=== PATIENT | male | born 1935 | race Caucasian/White ===

== ENCOUNTER 2018-11-19 12:30 | Outpatient (CLI) | payer MEDICARE ==
--- NOTE | 2018-11-19 15:23 | PET ---
PET W CT Skull to Mid Thigh History: Malignant poorly differentiated neuroendocrine tumor. Comparison: None. Findings: PET CT from skull base to mid thigh was performed after the intravenous administration of 1 0.6 injury F-18 FDG. Diffuse abnormal uptake of radiotracer throughout the prostate with SUV max of 9.1. Abnormal right in ternal iliac adenopathy measuring short axis of 2.3 cm with SUV max 9.4. Right obturator lymph nodes have SUV max of 10.4 measuring up to 2.4 cm short axis. Right external iliac and internal iliac lymph nodes have SUV max of 8.6 and measure up to 2.7 cm in short axis. Left common iliac lymph nodes measure up to 2.7 cm in short axis with SUV max of 8. Retroperitoneal periaortic adenopathy brodie sures up to 2.5 cm in short axis with SUV max of 6. Aortocaval lymph nodes measure up to 3 cm in short axis with SUV max of 7.7. Left external iliac lymph nodes have a short axis of 2.1 cm with SUV max 13.43 Very heterogeneous hepatic uptake of radiotracer without a dominant mass may be sequelae of chronic c ongestive changes from diastolic dysfunction. Old right posterior rib fractures, right scapular fracture, right clavicular fracture, and right posterior rib fractures. Heart size markedly enlarged. No pneumothorax. No effusion. No focal airspace consolidation. No hydronephrosis. Batista catheter is in place with the prosthetic urethra displaced to the right. No suspicious osteoblastic lesions. Impression: Diffuse abnormal radiotracer uptake within the prostate with extensive pelvic and abdomin al retroperitoneal adenopathy.
== END 2018-11-19 12:31 | disposition home or self-care (01) ==
LOC: PET 12:30
PROVIDERS: ATTEND Internal Medicine Hematology & Oncology
DX: C7A.1 Malignant poorly differentiated neuroendocrine tumors (principal); R59.0 Localized enlarged lymph nodes
CPT/HCPCS: 78815; A9552

== ENCOUNTER 2018-12-31 17:42 | Inpatient (IN) | payer MEDICARE ==
[2018-12-31 18:23] LABS: Bacteria/HPF 4+ HPF (None Seen); Bilirubin Negative (Negative); Blood, Urine Trace (Negative); Clarity Clear (Clear); Glucose, Urine (Dipstick) Normal (Negative); Leukocyte 250 Leu/uL (Negative); Nitrite Negative (Negative); Protein, Urine (Dipstick) 20 mg/dL (Neg-Trace); Squamous Epithelial 0-3 HPF (0-3); Urobilinogen Normal mg/dL (Less than 2)
[2018-12-31 18:29] LABS: #Basophils 0.1 thou/uL (0.0-0.2); #Lymphocytes 4.7 thou/uL (1.20-3.40); #Monocytes 0.2 thou/uL (0.11-0.59); #Neutrophils 10.2 thou/uL (1.40-6.50); %Basophils 0.4 % (0.0-1.0); %Eosinophils 0.1 % (0.0-10.0); %Lymphocytes 30.8 % (21.0-51.0); %Monocytes 1.3 % (0.0-10.0); %Neutrophils 67.5 % (42.0-75.0); Hemoglobin 11.4 g/dL (14.0-18.0); Mean Corpuscular HGB CONC 34.3 g/dL (32.0-36.0); Mean Corpuscular Hemoglobin 30.2 pg (27.0-31.0); Mean Corpuscular Volume 88.1 fL (78.0-98.0); Mean Platelet Volume 6.8 fL (7.4-10.4); Platelet Count 337 thou/uL (130-400); RBC Distribution Width 15.2 % (11.5-14.5); Red Blood Cell (RBC) Count 3.76 mill/uL (4.70-6.10); White Blood Cell (WBC) Count 15.1 thou/uL (4.8-10.8)
[2018-12-31 18:46] LABS: ALT (SGPT) 33 U/L (8-55); AST (SGOT) 27 U/L (5-34); Albumin 4.1 g/dL (3.4-4.8); Alkaline Phosphatase 126 U/L (40-150); Anion Gap 11 mmol/L (10-20); BUN (Urea Nitrogen) 9 mg/dL (8.4-25.7); Bilirubin, Total 0.7 mg/dL (0.2-1.2); Calc. Creatinine Clearance 0 mL/min (70-130); Calcium 9.3 mg/dL (7.8-10.44); Carbon Dioxide 23 mmol/L (23-31); Chloride 89 mmol/L (98-107); Estimated GFR-MDRD Greater than 90; Globulin 3.1 g/dL (2.4-3.5); Glucose 141 mg/dL (83-110); Magnesium 1.8 mg/dL (1.6-2.6); Potassium 4.5 mmol/L (3.5-5.1); Protein, Total 7.2 g/dL (5.8-8.1)
[2018-12-31 18:51] LABS: Sodium 118 mmol/L (136-145)
[2019-01-01] MEDS ORDERED: Acetaminophen 650 MG Suppository PR PRN (01:55)
[2019-01-01] MEDS ORDERED: Acetaminophen 325 MG TAB PO PRN (01:55)
[2019-01-01] MEDS: cefTRIAXone\\ROCEPHIN 1 GM in Sodium Chloride 0.9% 100 ML IVPB SCH (03:01)
--- NOTE | 2019-01-01 03:04 | HP ---
PRIMARY CARE DOCTOR: Dr. Rodas. CODE STATUS: Full code. TIME OF EVALUATION: 11:00 p.m. CHIEF COMPLAINT: Abnormal labs. HISTORY OF PRESENT ILLNESS: This is an 83-year-old male patient with past medical history of prostate cancer, getting chemo. The patient follows Dr. Daniel. It looks like she went for the followup and Dr. Daniel found the patient to have a sodium of 118. The patient has no significant symptoms. No clear triggers, no alleviating factors. The patient also has associated hiccups. This has been a problem that he had also a couple of years ago with no significant diagnosis and improved with some medications that he has been getting. The patient seems to be fully oriented. Symptoms are mild. REVIEW OF SYSTEMS: All systems reviewed were negative except for the findings mentioned above. PAST MEDICAL HISTORY: Positive for atrial fibrillation, status post ablation x2 ; coronary artery disease, status post stent; small cell carcinoma of the prostate , stage IV. PSYCHIATRIC HISTORY: No previous psych history. SOCIAL HISTORY: No alcohol, no drugs, no smoking history. FAMILY HISTORY: Reviewed and noncontributory for current presentation. KNOWN ALLERGIES: No known drug allergies. REPORTED MEDICATIONS: Eliquis and baclofen. PHYSICAL EXAMINATION: VITAL SIGNS: On presentation, blood pressure 157/68 with heart rate 73, respiratory rate was 18, temperature 98, pain was 0/10, oxygen saturation was 97% on room air. GENERAL APPEARANCE: The patient is alert and oriented, in no acute distress. HEENT: Eyes; normal conjunctivae. Moist oral mucosa. Anicteric. No JVD. RESPIRATORY: Bilateral air entry. No rales. No wheezes. Symmetric expansion. CARDIOVASCULAR: Normal rate. Regular rhythm. No murmurs. No gallop. No edema. ABDOMEN: Soft. Normal bowel sounds. MUSCULOSKELETAL: Baseline range of motion and strength. SKIN: Warm and intact. No pallor. No rash. No redness. Capillary refill seems to be intact. NEUROLOGIC: No evidence of any new focal weakness. Cranial nerves seems to be intact. GENITOURINARY: The patient has an indwelling catheter that he changed every month. PSYCH: The patient is in good mood. No anxiety. Optimal judgment. DIAGNOSTIC FINDINGS: EKG was reviewed. The patient has wide QRS rhythm with ventricular rate of 81, QRS 164, QT corrected 508, LBBB pattern. LABORATORY DATA: Reviewed. The patient has a white count 15.1, hemoglobin 11.4 , MCV 88.1, platelet count 337. Chemistry; sodium 118, potassium 4.5, chloride 89 , carbon dioxide 23, anion gap 11, BUN 9, creatinine 0.7. GFR greater than 90. Glucose 141. Serum osmolality 254, calcium 9.3, magnesium 1.8, total bilirubin 0.7. LFTs were normal. Alkaline phosphatase 126. Serum total protein 7.2, albumin 4.1, globulin 3.1, albumin-globulin ratio is 1.3. Urine was done was negative with white count of 7 to 10. Urine leukocyte esterase 250. ASSESSMENT/PLAN: The patient will be placed in the hospital with following medical problems: 1. Severe hyponatremia that seems to be chronic. The patient has no symptoms. Sodium 118. We will aim for correction of around 6 to 9 mEq in the next 24 hours. This could be related to SIADH since the patient has lower osmolality in serum when compared to the urine osmolality, so it seems that he is retaining fluids and this is secondary to underlying small cell prostate cancer. 2. Leukocytosis. No evidence of infection at this point. The patient does have an indwelling urinary catheter, so he may be having a urinary tract infection since the white count in urine is 7 to 10, through it is not too high. Given history of chemo immunosuppression and having positive urine and leukocytosis, we will start the patient on Rocephin. We will follow cultures and treat accordingly. 3. Normocytic anemia. This is mild, can be followed as outpatient. 4. History of atrial fibrillation, this is chronic, seems to be stable. We will monitor and treat accordingly. reconcile home meds. 5. Hyperglycemia, glucose 141. History of diabetes reported. This might be due to acute physical distress. We will monitor and treat accordingly. 6. Deep venous thrombosis prophylaxis. Job ID: [id number] [facility]
[2019-01-01 03:08] LABS: Creatinine, Urine 102.34 mg/dL (63-166); Potassium, Urine 69.8 mmol/L
[2019-01-01 03:55] LABS: Anion Gap 12 mmol/L (10-20); BUN (Urea Nitrogen) 12 mg/dL (8.4-25.7); Calc. Creatinine Clearance 101 mL/min (70-130); Calcium 8.9 mg/dL (7.8-10.44); Carbon Dioxide 18 mmol/L (23-31); Chloride 94 mmol/L (98-107); Estimated GFR-MDRD Greater than 90; Glucose 132 mg/dL (83-110); Potassium 4.6 mmol/L (3.5-5.1)
[2019-01-01 04:01] LABS: Sodium 119 mmol/L (136-145)
[2019-01-01 04:52] LABS: Band 2 % (5-11); Hemoglobin 10.6 g/dL (14.0-18.0); Lymphocytes 18 % (21-51); MDiff Complete? YES; Mean Corpuscular HGB CONC 35.7 g/dL (32.0-36.0); Mean Corpuscular Hemoglobin 30.9 pg (27.0-31.0); Mean Corpuscular Volume 86.7 fL (78.0-98.0); Monocytes 3 % (0-10); Neutrophil 77 % (42-75); Platelet Count 229 thou/uL (130-400); RBC Distribution Width 15.4 % (11.5-14.5); Red Blood Cell (RBC) Count 3.43 mill/uL (4.70-6.10); White Blood Cell (WBC) Count 15.2 thou/uL (4.8-10.8)
[2019-01-01 06:46] LABS: Anion Gap 9 mmol/L (10-20); BUN (Urea Nitrogen) 12 mg/dL (8.4-25.7); Carbon Dioxide 23 mmol/L (23-31); Chloride 93 mmol/L (98-107); Potassium 4.4 mmol/L (3.5-5.1); Sodium 121 mmol/L (136-145)
[2019-01-01 06:47] LABS: Calc. Creatinine Clearance 101 mL/min (70-130); Calcium 8.8 mg/dL (7.8-10.44); Estimated GFR-MDRD Greater than 90; Glucose 101 mg/dL (83-110)
[2019-01-01] MEDS ORDERED: Enoxaparin Sodium 40 MG/0.4 ML SYRINGE SC SCH (09:00)
[2019-01-01] MEDS ORDERED: Prevnar 13-Val Conj/PF 0.5 ML SYRINGE IM ONE (09:00)
[2019-01-01 10:48] LABS: Anion Gap 9 mmol/L (10-20); BUN (Urea Nitrogen) 11 mg/dL (8.4-25.7); Calc. Creatinine Clearance 94 mL/min (70-130); Calcium 9.5 mg/dL (7.8-10.44); Carbon Dioxide 24 mmol/L (23-31); Chloride 91 mmol/L (98-107); Estimated GFR-MDRD Greater than 90; Glucose 88 mg/dL (83-110); Potassium 4.2 mmol/L (3.5-5.1); Sodium 120 mmol/L (136-145)
[2019-01-01] MEDS ORDERED: Baclofen 10 MG TAB PO PRN (11:56)
[2019-01-01] MEDS ORDERED: Ondansetron ODT 4 MG TAB PO PRN (11:57)
--- NOTE | 2019-01-01 12:00 | PDOC.HOSPP ---
- Subjective Encounter Date: 01/01/19 Encounter Time: 11:35 Subjective: Confused, wants to go home, no nausea/vomiting. No pain. Ambulating independently. - Objective Vital Signs & Weight: Vital Signs (12 hours) Temp Pulse Resp BP BP Pulse Ox 01/01/19 08:16 97.2 F L 90 18 164/84 H 96 01/01/19 03:39 97.9 F 75 16 156/84 H 95 Weight Weight 179 lb 3.2 oz I&O: 12/31/18 01/01/19 01/02/19 06:59 06:59 06:59 Intake Total 100 Output Total 400 Balance -300 Result Diagrams: 01/01/19 03:18 01/02/19 04:07 Hospitalist ROS - Medication Medications: Active Medications Generic Name Dose Route Start Last Admin Trade Name Freq PRN Reason Stop Dose Admin Enoxaparin Sodium 40 mg 01/01/19 09:00 01/01/19 09:18 Lovenox SC 40 mg 0900 RAPHAEL Administration Ceftriaxone Sodium 1 gm/ 100 mls @ 200 mls/hr 01/01/19 03:00 01/01/19 03:01 Sodium Chloride IVPB 100 mls 0300 RAPHAEL Administration - Exam General Appearance: NAD General - other findings: Talkative, tangential Eye: PERRL ENT: no oropharyngeal lesions Neck: supple Heart: RRR Respiratory: CTAB Gastrointestinal: soft, non-tender Extremities: no edema Neurological: no new deficit Psychiatric: A&O x 3 Hosp A/P (1) Hyponatremia Code(s): E87.1 - HYPO-OSMOLALITY AND HYPONATREMIA Status: Acute (2) Leukocytosis Code(s): D72.829 - ELEVATED WHITE BLOOD CELL COUNT, UNSPECIFIED Status: Acute (3) Anemia Code(s): D64.9 - ANEMIA, UNSPECIFIED Status: Acute (4) Malignant poorly differentiated neuroendocrine carcinoma Code(s): C7A.1 - MALIGNANT POORLY DIFFERENTIATED NEUROENDOCRINE TUMORS Status : Acute - Plan 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 Dr. Holt consulted, f/u recs. Serial lab ordered. Daughter contacted to bring home med list Hiccups - trial baclofen Leukocytosis - f/u cultures, empiric rocephin presently
[2019-01-01 12:53] VITALS: BMI 27.2
[2019-01-01 15:19] LABS: Anion Gap 10 mmol/L (10-20); BUN (Urea Nitrogen) 16 mg/dL (8.4-25.7); Calc. Creatinine Clearance 85 mL/min (70-130); Calcium 9.6 mg/dL (7.8-10.44); Carbon Dioxide 24 mmol/L (23-31); Chloride 92 mmol/L (98-107); Estimated GFR-MDRD Greater than 90; Glucose 94 mg/dL (83-110); Potassium 4.1 mmol/L (3.5-5.1); Sodium 122 mmol/L (136-145)
--- NOTE | 2019-01-01 15:38 | CON ---
DATE OF CONSULTATION: REASON FOR CONSULT: Stage IV neuroendocrine carcinoma of the prostate with small cell carcinoma features. HISTORY OF PRESENT ILLNESS: Mr. Real is an 83-year-old gentleman with history of dementia, urinary retention, and enlarged prostate. He underwent a TURP in October of 2018 and biopsy showed neuroendocrine carcinoma of the prostate. He was started on chemotherapy, consisting of carboplatin and TECHNOLOGY INTEGRATION SPECIALIST-16. He returned yesterday to the clinic for cycle two. He complained of hip pain and fatigue and was in a wheelchair. He was also having hiccups that would last for days. His labs returned a sodium of 119, so he was sent to the emergency room for evaluation. He was placed on fluid restriction with mild increase in sodium. He has also been started on baclofen for his hiccups. The patient was seen at bedside where him and his are present in the room. Both are focused on other issues other than hospitalization. The patient is wearing his own clothes and states he is leaving today. He is clearly having issues focusing on his medical condition. PAST MEDICAL HISTORY: 1. Hypertension. 2. Hyperlipidemia. 3. Atrial fibrillation. 4. Inguinal hernia. 5. BPH. 6. Stage IV neuroendocrine carcinoma of the prostate. 7. Dementia. PAST SURGICAL HISTORY: 1. Heart surgery. 2. TURP. ALLERGIES: NO KNOWN DRUG ALLERGIES. HOME MEDICATIONS: 1. Flomax. 2. Zofran. 3. Naproxen. 4. Losartan. 5. Eliquis. 6. Compazine. FAMILY HISTORY: Noncontributory. SOCIAL HISTORY: . Lives in assisted living. Two children. No alcohol, tobacco, or illicit drug use. REVIEW OF SYSTEMS: The patient denies any complaints. PHYSICAL EXAMINATION: VITAL SIGNS: Temperature is 97.8, pulse is 94, respiratory rate 20, BP is 153/75. He is 96% on room air. GENERAL: Well-developed, well-nourished male, in no acute distress. HEENT: Normocephalic and atraumatic. Pupils are equal and reactive to light. NECK: Supple. CV: Regular rate and rhythm. LUNGS: Clear. ABDOMEN: Soft and nontender. There is no organomegaly. EXTREMITIES: He has 1+ bilateral lower extremity edema. SKIN: No rash. : Batista catheter in place. NEUROLOGICAL: He is nonfocal. PSYCH: He is alert, but having difficulty focusing. PERTINENT LABS AND X-RAYS: Current WBCs are 15.2, hemoglobin 10.6, hematocrit 29.8, platelet count is 229,000, 77% neutrophils, 2% bands, 8% lymphocytes. Sodium 120, potassium 4.2, chloride 91, CO2 is 24, BUN is 11, creatinine 0.77, serum osmolality is 254, calcium is 9.5, bilirubin 0.7, AST is 27, ALT is 33, alkaline phosphatase is 126. Serum total protein 7.2, albumin 4.1, globulin 3.1. Urine shows 4+ bacteria. 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 DISCUSSION: The patient has been placed on fluid restriction. Nephrology has been consulted for their recommendations. He has started baclofen for his hiccups and they have improved. He does have leukocytosis, possibly from infection. On discussion with the patient and his , they both are clearly confused and focusing on going to a different hospital and where they are going to be spending the night. I was unable to redirect him to his current medical problem. We will continue to support him here. His next two days of chemotherapy will be held. We will follow along with his hospital course. Job ID: [id number]
[2019-01-01] MEDS ORDERED: Sodium Chloride 256 MEQ in Sterile Water Injection 936 ML IV SCH (17:30)
[2019-01-01] MEDS ORDERED: Sodium Chloride 3% 500 ML IVPB SCH (17:30)
[2019-01-01 18:33] LABS: Anion Gap 12 mmol/L (10-20); BUN (Urea Nitrogen) 18 mg/dL (8.4-25.7); Calc. Creatinine Clearance 71 mL/min (70-130); Calcium 9.7 mg/dL (7.8-10.44); Carbon Dioxide 23 mmol/L (23-31); Chloride 93 mmol/L (98-107); Estimated GFR-MDRD 77; Glucose 95 mg/dL (83-110); Potassium 4.3 mmol/L (3.5-5.1); Sodium 124 mmol/L (136-145)
[2019-01-01] MEDS: Apixaban 2.5 MG TAB PO SCH (20:33)
[2019-01-01] MEDS: chlorproMAZINE HCl 25 MG TAB PO PRN (21:51)
--- NOTE | 2019-01-01 23:57 | CON ---
DATE OF CONSULTATION: HISTORY OF PRESENT ILLNESS: The patient is an 83-year-old white male, who was admitted due to hyponatremia. He has a history of prostate cancer and was getting chemotherapy. Initial evaluation by his registered dietician found that he had a serum sodium of 118. It is currently improving over time with free water restriction. We were consulted for further management of this hyponatremia. REVIEW OF SYSTEMS: Positive for confusion. No chest pain. No shortness of breath. No diarrhea. No abdominal pain. No gross hematuria. No dysuria. No frequency. No productive cough. No fever or chills. Appetite and energy level are fair. MEDICATIONS: Currently on; 1. Acetaminophen 650 mg q.4 p.r.n. 2. Eliquis 2.5 mg p.o. b.i.d. 3. Baclofen 5 mg p.o. t.i.d. p.r.n. 4. Ceftriaxone 1 g IV daily. 5. Lovenox 40 mg daily. 6. Losartan 50 mg once a day. PAST MEDICAL HISTORY: 1. History of prostate cancer - on chemotherapy. 2. Atrial fibrillation with status post cardiac ablation x2, coronary artery disease, status post coronary artery stent placement. PAST SURGICAL HISTORY: Status post prostate biopsy. SOCIAL HISTORY: The patient lives in [place]. 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 , three children? Sedentary lifestyle. No blood transfusion. No smoking. No alcohol. ALLERGIES: UNKNOWN. TRAUMA: None. IMMUNIZATION: Not up-to-date. HOSPITALIZATIONS: Please see past medical history. FAMILY HISTORY: No family history of ESRD. PHYSICAL EXAMINATION: VITAL SIGNS: Blood pressure is 136/85, heart rate 95, respiratory rate 18, temperature 98.4, and pulse ox 97%. GENERAL: Noted to be awake, alert, with occasional confusion. He could not remember number of children, but is oriented to time and place. HEENT: He has pinkish conjunctivae. Anicteric sclerae. NECK: No neck mass. No carotid bruits. No JVD. CHEST: No deformities. LUNGS: Clear breath sounds. HEART: Normal sinus rhythm. No murmur. No gallops. No rubs. ABDOMEN: Globular, soft, and nontender. No masses. EXTREMITIES: No edema. No deformities. LABORATORY DATA: Laboratories of January 01, 2019, sodium 122, potassium 4.1, chloride 92, carbon dioxide 24, BUN 16, and creatinine 0.78. December 31, 2018, sodium 118, potassium 4.5, chloride 89, and carbon dioxide 23. White count 15.2, hemoglobin 10.6. Urinalysis, specific gravity 1.015, RBC , WBC 7 to 10. Urine sodium is 37. Urine creatinine is 102. Urine osmolality 465. PET scan, nuclear medicine, diffuse abdominal radiotracer uptake within the prostate and extensive pelvic and abdominal retroperitoneal adenopathy. ASSESSMENT AND PLAN: 1. Hyponatremia - most likely syndrome of inappropriate antidiuretic hormone secretion based on the history of cancer. He is not volume depleted. Urine sodium does not suggest he is volume depleted. I would start this patient at least on 1.5% sodium chloride to run at 50 mL per hour. Monitor serum sodium q.4 hours for 2 more times. We will repeat the basement again tomorrow. If no significant improvement, we could always increase the sodium chloride from 1.5% to 3% or increase the IV rate of the 1.5% sodium chloride. Continue free water restriction. 2. Prostate cancer with metastases - status post chemotherapy. 3. Overall agree with current management. Job ID: [id number]
[2019-01-02 00:12] LABS: Anion Gap 10 mmol/L (10-20); BUN (Urea Nitrogen) 16 mg/dL (8.4-25.7); Calc. Creatinine Clearance 90 mL/min (70-130); Calcium 8.7 mg/dL (7.8-10.44); Carbon Dioxide 22 mmol/L (23-31); Chloride 97 mmol/L (98-107); Estimated GFR-MDRD Greater than 90; Glucose 88 mg/dL (83-110); Potassium 4.4 mmol/L (3.5-5.1); Sodium 125 mmol/L (136-145)
[2019-01-02] MEDS: cefTRIAXone\\ROCEPHIN 1 GM in Sodium Chloride 0.9% 100 ML IVPB SCH (02:02)
[2019-01-02] MEDS: Baclofen 10 MG TAB PO PRN (02:06)
[2019-01-02 05:27] LABS: Anion Gap 12 mmol/L (10-20); BUN (Urea Nitrogen) 14 mg/dL (8.4-25.7); Calc. Creatinine Clearance 94 mL/min (70-130); Calcium 8.5 mg/dL (7.8-10.44); Carbon Dioxide 22 mmol/L (23-31); Chloride 98 mmol/L (98-107); Estimated GFR-MDRD Greater than 90; Glucose 73 mg/dL (83-110); Potassium 4.1 mmol/L (3.5-5.1); Sodium 128 mmol/L (136-145)
[2019-01-02] MEDS: Losartan 25 MG TAB PO SCH (08:19)
[2019-01-02] MEDS: Apixaban 2.5 MG TAB PO SCH ×2 (08:20→21:02)
--- NOTE | 2019-01-02 10:32 | PRG ---
DATE OF SERVICE: 01/02/2019 SERVICE: Renal Medicine. SUBJECTIVE: Mr. Real is an 83-year-old white male with known history of prostate cancer with metastases and was seen by the Renal Service for his hyponatremia secondary to a presumptive SIADH. He was started on free water restriction and on 1.5% sodium chloride. Serum sodium is slowly improving. This morning, he is feeling better. He has a clear mentation. OBJECTIVE: VITAL SIGNS: Blood pressure 159/88, heart rate 91, respiratory rate 16, temperature 97.8, pulse ox 97%. GENERAL: Noted to be awake, alert, sitting comfortable, not in distress. SKIN: Adequate turgor. HEENT: Slightly pale conjunctivae. Anicteric sclerae. NECK: No neck mass. No carotid bruits. No JVD. CHEST: No deformities. LUNGS: Clear breath sounds. HEART: Normal sinus rhythm. No murmurs. No gallops. No rubs. ABDOMEN: Globular, soft, nontender. No masses. He has an indwelling Batista catheter. EXTREMITIES: No edema. No deformities. MEDICATIONS: Medications of January 02, 2019, reviewed. LABORATORY DATA: Laboratories of January 02, 2019, sodium 128, potassium 4.1, chloride 98, carbon dioxide 22, BUN 14, creatinine 0.71, glucose 73, calcium 8.5. ASSESSMENT AND PLAN: 1. Hyponatremia, slowly improving. Most recent serum sodium is 128. I would continue the 1.5% sodium chloride for the next 24 hours until we can achieve a near normal serum sodium. Continue free water restriction. 2. Prostate cancer with metastases, status post chemotherapy, supportive care. 3. Recheck basic metabolic panel in a.m. Job ID: [id number]
--- NOTE | 2019-01-02 10:42 | PDOC.MOPN ---
Interval History: Denies complaints. More lucid today and aware of surroundings. - Vital Signs Vital Signs: Vital Signs (12 hours) Temp Pulse Resp BP BP Pulse Ox 01/02/19 07:40 97.8 F 91 16 159/88 H 97 01/01/19 23:34 98.0 F 71 16 145/81 H 92 L Weight Admit Weight 179 lb 3.2 oz Weight 179 lb 3.2 oz - Physical Exam General: Alert, Oriented x3, No acute distress HEENT: Atraumatic, PERRLA, EOMI, Mucous membr. moist/pink Lungs: Clear to auscultation, Normal air movement Cardiovascular: Regular rate, Normal S1, Normal S2, No murmurs, Gallops, Rubs Abdomen: Normal bowel sounds, Soft, No tenderness, No hepatospenomegaly, No masses Extremities: No clubbing, No cyanosis, No edema, Normal pulses, No tenderness/ swelling Skin: No rashes, No breakdown, No significant lesion Neurological: Normal gait, Normal speech, Strength at 5/5 X4 ext, Normal tone, Sensation intact, Cranial nerves 3-12 NL, Reflexes 2+ Psych/Mental Status: Mental status NL, Mood NL - Labs Result Diagrams: 01/01/19 03:18 01/02/19 04:07 Lab results: Laboratory Results - last 24 hr 01/02/19 04:07: Sodium 128 L, Potassium 4.1, Chloride 98, Carbon Dioxide 22 L, Anion Gap 12, BUN 14, Creatinine 0.71, Estimated GFR (MDRD) Greater than 90, Glucose 73 L, Calcium 8.5 01/01/19 23:40: Sodium 125 L, Potassium 4.4, Chloride 97 L, Carbon Dioxide 22 L , Anion Gap 10, BUN 16, Creatinine 0.74, Estimated GFR (MDRD) Greater than 90, Glucose 88, Calcium 8.7 01/01/19 18:01: TSH 3rd Generation 0.9770 01/01/19 18:01: Cortisol 14.50 01/01/19 18:01: Sodium 124 L, Potassium 4.3, Chloride 93 L, Carbon Dioxide 23, Anion Gap 12, BUN 18, Creatinine 0.94, Estimated GFR (MDRD) 77, Glucose 95, Uric Acid 3.0 L, Calcium 9.7 01/01/19 14:44: Sodium 122 L, Potassium 4.1, Chloride 92 L, Carbon Dioxide 24, Anion Gap 10, BUN 16, Creatinine 0.78, Estimated GFR (MDRD) Greater than 90, Glucose 94, Calcium 9.6 01/01/19 10:03: Sodium 120 L, Potassium 4.2, Chloride 91 L, Carbon Dioxide 24, Anion Gap 9 L, BUN 11, Creatinine 0.71, Estimated GFR (MDRD) Greater than 90, Glucose 88, Calcium 9.5 Status: lab reviewed by me A/P - Problem (1) Hyponatremia Current Visit: Yes Code(s): E87.1 - HYPO-OSMOLALITY AND HYPONATREMIA Status : Acute (2) Malignant poorly differentiated neuroendocrine carcinoma Current Visit: Yes Code(s): C7A.1 - MALIGNANT POORLY DIFFERENTIATED NEUROENDOCRINE TUMORS Status: Acute - Plan Plan: Continue treatment for hyponatremia, appreciate recs Supportive care.
--- NOTE | 2019-01-02 16:55 | PDOC.HOSPP ---
- Subjective Encounter Date: 01/02/19 Encounter Time: 14:20 Subjective: Awake, oriented, less agitated. Eating well. No nausea or vomiting. Ambulating without difficulty. - Objective Vital Signs & Weight: Vital Signs (12 hours) Temp Pulse Resp BP BP Pulse Ox 01/02/19 15:16 98 F 75 18 177/91 H 97 01/02/19 08:00 97 01/02/19 07:40 97.8 F 91 16 159/88 H 97 Weight Admit Weight 179 lb 3.2 oz Weight 179 lb 3.2 oz I&O: 01/01/19 01/02/19 01/03/19 06:59 06:59 06:59 Intake Total 100 775 Output Total 400 175 Balance -300 600 Result Diagrams: 01/01/19 03:18 01/02/19 04:07 Hospitalist ROS - Medication Medications: Active Medications Generic Name Dose Route Start Last Admin Trade Name Freq PRN Reason Stop Dose Admin Apixaban 2.5 mg 01/01/19 21:00 01/02/19 08:20 Eliquis PO 2.5 mg BID RAPHAEL Administration Baclofen 10 mg 01/01/19 17:13 01/02/19 02:06 Lioresal PO 10 mg TID PRN Administration Hiccups Chlorpromazine HCl 25 mg 01/01/19 21:08 01/01/19 21:51 Thorazine PO 25 mg TID PRN Administration Hiccups Ceftriaxone Sodium 1 gm/ 100 mls @ 200 mls/hr 01/01/19 03:00 01/02/19 02:02 Sodium Chloride IVPB 100 mls 0300 RAPHAEL Administration Sodium Chloride 256 meq/ 1,000 mls @ 50 mls/hr 01/01/19 17:30 01/01/19 18:14 Sterile Water IV 1,000 mls INF RAPHAEL Administration Losartan Potassium 50 mg 01/02/19 09:00 01/02/19 08:19 Cozaar PO 50 mg DAILY RAPHAEL Administration Ondansetron HCl 4 mg 01/01/19 11:57 01/01/19 12:47 Zofran Odt PO 4 mg Q6H PRN Administration Nausea/Vomiting - Exam General Appearance: NAD Eye: anicteric sclera ENT: normocephalic atraumatic Neck: supple, no JVD Heart: RRR Respiratory: CTAB Gastrointestinal: soft, non-tender Extremities: no edema Skin: no rashes Musculoskeletal: normal tone, normal strength Psychiatric: A&O x 3 Hosp A/P (1) Hyponatremia Code(s): E87.1 - HYPO-OSMOLALITY AND HYPONATREMIA Status: Acute (2) Leukocytosis Code(s): D72.829 - ELEVATED WHITE BLOOD CELL COUNT, UNSPECIFIED Status: Acute (3) Anemia Code(s): D64.9 - ANEMIA, UNSPECIFIED Status: Acute (4) Malignant poorly differentiated neuroendocrine carcinoma Code(s): C7A.1 - MALIGNANT POORLY DIFFERENTIATED NEUROENDOCRINE TUMORS Status : Acute - Plan 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 Dr. Holt consulted, appreciate recs. IVF noted, check AML. Home med list reconciled Hiccups - trial baclofen Leukocytosis - Chronic indwelling horan, infection present on admission, f/u cultures (presently >100K CFU GNR), empiric rocephin presently; check AM CBC Pending results of Na, perhaps home 01/03 or 01/04
[2019-01-02] MEDS: chlorproMAZINE HCl 25 MG TAB PO PRN (21:02)
[2019-01-03] MEDS: cefTRIAXone\\ROCEPHIN 1 GM in Sodium Chloride 0.9% 100 ML IVPB SCH (03:14)
[2019-01-03 05:20] LABS: #Basophils 0.1 thou/uL (0.0-0.2); #Eosinphils 0.1 thou/uL (0.0-0.7); #Monocytes 0.5 thou/uL (0.11-0.59); #Neutrophils 3.9 thou/uL (1.40-6.50); %Eosinophils 0.8 % (0.0-10.0); %Monocytes 8.2 % (0.0-10.0); Hemoglobin 10.1 g/dL (14.0-18.0); Mean Corpuscular HGB CONC 34.2 g/dL (32.0-36.0); Mean Corpuscular Hemoglobin 30.6 pg (27.0-31.0); Mean Corpuscular Volume 89.4 fL (78.0-98.0); Mean Platelet Volume 6.8 fL (7.4-10.4); Platelet Count 312 thou/uL (130-400); RBC Distribution Width 15.6 % (11.5-14.5); Red Blood Cell (RBC) Count 3.28 mill/uL (4.70-6.10); White Blood Cell (WBC) Count 6.6 thou/uL (4.8-10.8)
[2019-01-03 05:45] LABS: Anion Gap 10 mmol/L (10-20); BUN (Urea Nitrogen) 12 mg/dL (8.4-25.7); Calc. Creatinine Clearance 102 mL/min (70-130); Calcium 8.7 mg/dL (7.8-10.44); Carbon Dioxide 23 mmol/L (23-31); Chloride 99 mmol/L (98-107); Estimated GFR-MDRD Greater than 90; Glucose 77 mg/dL (83-110); Potassium 4.4 mmol/L (3.5-5.1); Sodium 128 mmol/L (136-145)
[2019-01-03] MEDS: chlorproMAZINE HCl 25 MG TAB PO PRN ×2 (08:01→20:33)
[2019-01-03] MEDS: Losartan 25 MG TAB PO SCH (08:01)
[2019-01-03] MEDS: Apixaban 2.5 MG TAB PO SCH ×2 (08:01→20:33)
[2019-01-03] MEDS ORDERED: Furosemide 40 MG/4 ML VIAL SLOW IVP SCH (09:30)
--- NOTE | 2019-01-03 10:24 | PRG ---
DATE OF SERVICE: 01/03/2019 SUBJECTIVE: Mr. 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 He was started on 1.5% sodium chloride with slight improvement of the serum sodium. Serum sodium is relatively stable. I have decided to add sodium chloride tablets today. At this point in time, I give him one time dose of Lasix. No other complaints. He is doing well. The patient denies any chest pain or shortness of breath. OBJECTIVE: VITAL SIGNS: Blood pressure is 166/80, heart rate 95, respiratory rate 18, temperature 97.9, and pulse ox 92%. GENERAL: Noted to be awake, sitting comfortable, not in distress. SKIN: Adequate turgor. HEENT: He has slightly pale conjunctivae. Anicteric sclerae. NECK: No neck mass. No carotid bruits. No JVD. CHEST: No deformities. LUNGS: Clear breath sounds. No wheezing. No crackles. HEART: Normal sinus rhythm. No murmur. No gallops. No rubs. ABDOMEN: Globular, soft, and nontender. No masses. EXTREMITIES: No edema. No deformities. MEDICATIONS: Medications of 01/03/2019 were reviewed. LABORATORY DATA: On 01/03/2019: White count 6.6 and hemoglobin 10.1. Sodium 128, potassium 4.4, chloride 99, carbon dioxide 23, BUN 12, creatinine 0.65, glucose 77, and calcium 8.7. ASSESSMENT AND PLAN: Hyponatremia, secondary to syndrome of inappropriate antidiuretic hormone. Continue free-water restriction. We will start sodium chloride at 1 g p.o. t.i.d. In addition, we will give a one-time dose of Lasix 40 mg IV. If the patient is still here, we can increase the 1.5% sodium chloride to 75 mL/hour. If the patient is discharge, I am okay with this. He will continue to be on free-water restriction and sodium chloride tablets. Continue supportive care. Job ID: [id number]
[2019-01-03] MEDS: Sodium Chloride 256 MEQ in Sterile Water Injection 936 ML IV SCH (11:05)
[2019-01-03] MEDS: Baclofen 10 MG TAB PO PRN (13:01)
[2019-01-03] MEDS: Sodium Chloride 1 GM TAB PO SCH ×2 (14:59→20:33)
--- NOTE | 2019-01-03 23:19 | PDOC.HOSPP ---
- Subjective Encounter Date: 01/03/19 Encounter Time: 18:00 Subjective: Patient seen and examined for UTI/Hyponatremia. Feeling better. No abd pain/ Nausea. No new complaints. No overnight events - Objective Vital Signs & Weight: Vital Signs (12 hours) Temp Pulse Resp BP BP BP Pulse Ox 01/03/19 19:00 98.1 F 76 16 149/80 H 95 01/03/19 16:14 97.6 F 76 18 132/76 95 01/03/19 11:42 97.5 F L 76 18 122/76 95 Weight Admit Weight 179 lb 3.2 oz Weight 179 lb 3.2 oz I&O: 01/02/19 01/03/19 01/04/19 06:59 06:59 06:59 Intake Total 041 395 5163 Output Total 175 775 900 Balance 600 125 425 Result Diagrams: 01/03/19 05:08 01/04/19 04:10 Hospitalist ROS - Review of Systems Respiratory: denies: cough, dry, shortness of breath, hemoptysis, SOB with excertion, pleuritic pain, sputum, wheezing, other Cardiovascular: denies: chest pain, palpitations, orthopnea, paroxysmal noc. dyspnea, edema, light headedness, other Gastrointestinal: denies: nausea, vomitting, abdominal pain, diarrhea, constipation, melena, hematochezia, other - Medication Medications: Active Medications Generic Name Dose Route Start Last Admin Trade Name Freq PRN Reason Stop Dose Admin Apixaban 2.5 mg 01/01/19 21:00 01/03/19 20:33 Eliquis PO 2.5 mg BID RAPHAEL Administration Baclofen 10 mg 01/01/19 17:13 01/03/19 13:01 Lioresal PO 10 mg TID PRN Administration Hiccups Chlorpromazine HCl 25 mg 01/01/19 21:08 01/03/19 20:33 Thorazine PO 25 mg TID PRN Administration Hiccups Ceftriaxone Sodium 1 gm/ 100 mls @ 200 mls/hr 01/01/19 03:00 01/03/19 03:14 Sodium Chloride IVPB 100 mls 0300 RAPHAEL Administration Sodium Chloride 256 meq/ 1,000 mls @ 75 mls/hr 01/03/19 09:16 01/03/19 11:05 Sterile Water IV 1,000 mls .[id number] RAPHAEL Administration Losartan Potassium 50 mg 01/02/19 09:00 01/03/19 08:01 Cozaar PO 50 mg DAILY RAPHAEL Administration Ondansetron HCl 4 mg 01/01/19 11:57 01/01/19 12:47 Zofran Odt PO 4 mg Q6H PRN Administration Nausea/Vomiting Sodium Chloride 1 gm 01/03/19 15:00 01/03/19 20:33 Sodium Chloride PO 1 gm TID RAPHAEL Administration Sodium Chloride 10 ml 01/03/19 21:00 01/03/19 20:34 Flush - Normal Saline IVF 10 ml Q12HR RAPHAEL Administration - Exam General Appearance: NAD Heart: RRR, no gallops Respiratory: CTAB, no rales Gastrointestinal: soft, non-tender, normal bowel sounds Extremities: no edema Hosp A/P (1) Catheter-associated urinary tract infection Code(s): T83.511A - I/I REACT D/T INDWELLING URETHRAL CATHETER, INIT; N39.0 - URINARY TRACT INFECTION, SITE NOT SPECIFIED Status: Acute Qualifiers: Indwelling urinary catheter type: indwelling urethral catheter (2) SIADH (syndrome of inappropriate ADH production) Status: Acute (3) Sepsis secondary to UTI Code(s): A41.9 - SEPSIS, UNSPECIFIED ORGANISM; N39.0 - URINARY TRACT INFECTION, SITE NOT SPECIFIED Status: Acute (4) Hyponatremia Code(s): E87.1 - HYPO-OSMOLALITY AND HYPONATREMIA Status: Acute (5) Chronic anemia Code(s): D64.9 - ANEMIA, UNSPECIFIED Status: Acute (6) Prostate CA Code(s): C61 - MALIGNANT NEOPLASM OF PROSTATE Status: Chronic - Plan Cont fluid restriction AM labs Cont IV Ceftriaxone Cont other meds as below
[2019-01-04] MEDS: Sodium Chloride 256 MEQ in Sterile Water Injection 936 ML IV SCH ×2 (00:25→11:53)
[2019-01-04] MEDS: cefTRIAXone\\ROCEPHIN 1 GM in Sodium Chloride 0.9% 100 ML IVPB SCH (03:15)
[2019-01-04] MEDS: chlorproMAZINE HCl 25 MG TAB PO PRN ×2 (03:20→20:13)
[2019-01-04 05:05] LABS: Anion Gap 9 mmol/L (10-20); BUN (Urea Nitrogen) 13 mg/dL (8.4-25.7); Calc. Creatinine Clearance 102 mL/min (70-130); Calcium 8.8 mg/dL (7.8-10.44); Carbon Dioxide 23 mmol/L (23-31); Chloride 103 mmol/L (98-107); Estimated GFR-MDRD Greater than 90; Glucose 78 mg/dL (83-110); Phosphorus 3.4 mg/dL (2.3-4.7); Potassium 4.4 mmol/L (3.5-5.1); Sodium 131 mmol/L (136-145)
[2019-01-04] MEDS: Apixaban 2.5 MG TAB PO SCH ×2 (08:54→20:13)
[2019-01-04] MEDS: Losartan 25 MG TAB PO SCH (08:54)
[2019-01-04] MEDS: Sodium Chloride 1 GM TAB PO SCH ×3 (08:54→20:13)
[2019-01-04] MEDS: Baclofen 10 MG TAB PO PRN (10:42)
[2019-01-04] MEDS ORDERED: Furosemide 40 MG/4 ML VIAL SLOW IVP SCH (10:45)
--- NOTE | 2019-01-04 11:05 | PRG ---
DATE OF SERVICE: 01/04/2019 SUBJECTIVE: Mr. Real is an 83-year-old white male, who was seen for his hyponatremia from presumed SIADH. Serum sodium has been improving. He was placed on a 1.5% sodium chloride. I have started him also on sodium chloride tablet. In addition, he has been getting p.r.n. Lasix to break the medullary gradient to enhance a free water excretion. No other complaints today. He denies any chest pain or shortness of breath. OBJECTIVE: VITAL SIGNS: Blood pressure 165/90, heart rate 77, respiratory rate 18, temperature 98.1, and pulse ox 95%. GENERAL: Awake, alert, and comfortable, not in distress. SKIN: Adequate turgor. HEENT: He has slightly pale conjunctivae. Anicteric sclerae. NECK: No neck mass. No carotid bruits. No JVD. CHEST: No deformities. LUNGS: Clear breath sounds. HEART: Normal sinus rhythm. No murmur. No gallops. No rubs. ABDOMEN: Globular, soft, nontender. No masses. EXTREMITIES: No edema. No deformities. MEDICATIONS: Medications of January 04, 2019, reviewed. LABORATORY DATA: Laboratories of January 04, 2019; sodium 131, potassium 4.4, chloride 103, carbon dioxide 23, BUN 13, creatinine 0.65, calcium 8.8, magnesium 2.0, phosphorus 3.4. ASSESSMENT AND PLAN: 1. Chronic hyponatremia from syndrome of inappropriate antidiuretic hormone secretion, slowly improving. Continue current management. Continue sodium chloride tablets. Continue 1.5% solution. We will give another dose of Lasix 40 mg IV daily. From a renal point of view, this patient is stable enough to be discharged. 2. Prostate cancer with metastasis, status post chemotherapy. 3. Overall agree with current management. Job ID: [id number]
--- NOTE | 2019-01-04 22:45 | PDOC.HOSPP ---
- Subjective Encounter Date: 01/04/19 Encounter Time: 13:00 Subjective: Patient seen and examined for UTI/Hyponatremia. Feels better. No fever or chills. No new complaints. No overnight events - Objective Vital Signs & Weight: Vital Signs (12 hours) Temp Pulse Resp BP BP Pulse Ox 01/04/19 20:00 97 01/04/19 19:00 97.8 F 74 18 140/74 97 01/04/19 15:23 97.7 F 87 16 146/87 H 93 L 01/04/19 11:12 97.8 F 75 16 137/79 97 Weight Admit Weight 179 lb 3.2 oz Weight 179 lb 3.2 oz I&O: 01/03/19 01/04/19 01/05/19 06:59 06:59 06:59 Intake Total 900 2490 1750 Output Total 775 1600 1200 Balance 125 890 550 Result Diagrams: 01/03/19 05:08 01/04/19 04:10 Additional Labs: Microbiology 01/01/19 02:35 Urine horan catheter Urine Culture - Final Citrobacter freundii Hospitalist ROS - Review of Systems Respiratory: denies: cough, dry, shortness of breath, hemoptysis, SOB with excertion, pleuritic pain, sputum, wheezing, other Cardiovascular: denies: chest pain, palpitations, orthopnea, paroxysmal noc. dyspnea, edema, light headedness, other Gastrointestinal: denies: nausea, vomitting, abdominal pain, diarrhea, constipation, melena, hematochezia, other - Medication Medications: Active Medications Generic Name Dose Route Start Last Admin Trade Name Freq PRN Reason Stop Dose Admin Apixaban 2.5 mg 01/01/19 21:00 01/04/19 20:13 Eliquis PO 2.5 mg BID RAPHAEL Administration Baclofen 10 mg 01/01/19 17:13 01/04/19 10:42 Lioresal PO 10 mg TID PRN Administration Hiccups Chlorpromazine HCl 25 mg 01/01/19 21:08 01/04/19 20:13 Thorazine PO 25 mg TID PRN Administration Hiccups Ceftriaxone Sodium 1 gm/ 100 mls @ 200 mls/hr 01/01/19 03:00 01/04/19 03:15 Sodium Chloride IVPB 100 mls 0300 RAPHAEL Administration Sodium Chloride 256 meq/ 1,000 mls @ 75 mls/hr 01/03/19 09:16 01/04/19 11:53 Sterile Water IV 1,000 mls .[id number] RAPHAEL Administration Losartan Potassium 50 mg 01/02/19 09:00 01/04/19 08:54 Cozaar PO 50 mg DAILY RAPHAEL Administration Ondansetron HCl 4 mg 01/01/19 11:57 01/01/19 12:47 Zofran Odt PO 4 mg Q6H PRN Administration Nausea/Vomiting Sodium Chloride 1 gm 01/03/19 15:00 01/04/19 20:13 Sodium Chloride PO 1 gm TID RAPHAEL Administration Sodium Chloride 10 ml 01/03/19 21:00 01/04/19 20:14 Flush - Normal Saline IVF 10 ml Q12HR RAPHAEL Administration - Exam General Appearance: NAD Neck: supple, no JVD Heart: RRR, no murmur, no rubs Respiratory: CTAB, no wheezes, no ronchi Gastrointestinal: soft, non-tender, non-distended, normal bowel sounds Extremities: no edema Hosp A/P (1) Catheter-associated urinary tract infection Code(s): T83.511A - I/I REACT D/T INDWELLING URETHRAL CATHETER, INIT; N39.0 - URINARY TRACT INFECTION, SITE NOT SPECIFIED Status: Acute Qualifiers: Indwelling urinary catheter type: indwelling urethral catheter (2) SIADH (syndrome of inappropriate ADH production) Status: Acute (3) Hyponatremia Code(s): E87.1 - HYPO-OSMOLALITY AND HYPONATREMIA Status: Acute (4) Sepsis secondary to UTI Code(s): A41.9 - SEPSIS, UNSPECIFIED ORGANISM; N39.0 - URINARY TRACT INFECTION, SITE NOT SPECIFIED Status: Acute (5) Chronic anemia Code(s): D64.9 - ANEMIA, UNSPECIFIED Status: Acute (6) Prostate CA Code(s): C61 - MALIGNANT NEOPLASM OF PROSTATE Status: Chronic - Plan Cont Sodium chloride tablets Cont 1.5 % NS per Nephrology Cont fluid restriction AM labs Cont IV Ceftriaxone Cont other meds as above DC in 24 hr if stable
[2019-01-05] MEDS: cefTRIAXone\\ROCEPHIN 1 GM in Sodium Chloride 0.9% 100 ML IVPB SCH (02:32)
[2019-01-05] MEDS: Sodium Chloride 256 MEQ in Sterile Water Injection 936 ML IV SCH (02:33)
[2019-01-05] MEDS: chlorproMAZINE HCl 25 MG TAB PO PRN (05:36)
[2019-01-05 06:17] LABS: Anion Gap 12 mmol/L (10-20); BUN (Urea Nitrogen) 16 mg/dL (8.4-25.7); Calc. Creatinine Clearance 98 mL/min (70-130); Carbon Dioxide 23 mmol/L (23-31); Chloride 105 mmol/L (98-107); Estimated GFR-MDRD Greater than 90; Glucose 78 mg/dL (83-110); Potassium 4.5 mmol/L (3.5-5.1); Sodium 135 mmol/L (136-145)
[2019-01-05 07:47] VITALS: BP 148/88; TEMP 97.9
[2019-01-05] MEDS: Losartan 25 MG TAB PO SCH (08:19)
[2019-01-05] MEDS: Apixaban 2.5 MG TAB PO SCH (08:19)
[2019-01-05] MEDS: Sodium Chloride 1 GM TAB PO SCH (08:19)
--- NOTE | 2019-01-05 11:26 | DIS ---
DATE OF ADMISSION: 12/31/2018 DATE OF DISCHARGE: 01/05/2019 DISCHARGE DISPOSITION: Home. DISCHARGE FOLLOWUP: 1. Follow up with primary care physician, Dr. Rodas, in 1 week. 2. Follow up with Nephrology, Dr. Holt, in 1-2 weeks. 3. Basic metabolic profile after 1 week is recommended. Primary care physician advised to follow. 4. The patient was advised to follow up with his primary urologist in 1 week. DISCHARGE MEDICATIONS: 1. Omnicef 300 mg b.i.d. for next 3 days. 2. Sodium chloride 1 g b.i.d. All other home medications were left unchanged. DISCHARGE INSTRUCTION: Fall precaution was emphasized. DISCHARGE CONDITION: The patient was seen and examined on the day of discharge. Denies any new complaints. BRIEF HOSPITAL COURSE: The patient is an 83-year-old male with prostate cancer, presented to the emergency room with abnormal labs. His sodium was 118 at the Cancer [facility]. He is currently on chemotherapy and is followed by Dr. Daniel. He was monitored on the medical floor. His urine osmolality was 465 with serum osmolality of 254. His sodium gradually improved with fluid restriction along with sodium chloride tablets as well as 1.5% normal saline infusion. The patient's workup was also consistent with UTI. Urine culture showed Citrobacter. It is unclear whether the patient has true UTI versus colonization. He was placed on ceftriaxone which has been transitioned to Omnicef for next 3 days. He was advised to follow up with Urology as outpatient. FINAL DIAGNOSES: 1. Generalized weakness, multifactorial. 2. Hyponatremia secondary to syndrome of inappropriate antidiuretic hormone secretion. 3. Sepsis secondary to Citrobacter urinary tract infection (catheter associated UTI). 4. Chronic anemia. 5. Prostate cancer, on chemotherapy. DISCHARGE PLAN: Plan of care was discussed with the patient and the family in detail. They stated understanding. TIME SPENT: Total time coordinating the discharge of this patient was 34 minutes. Job ID: [id number]
== END 2019-01-05 11:50 | disposition home or self-care (01) | DRG 643 ==
LOC: ERS 17:42 → SURG A 19:35
PROVIDERS: ADMIT Hospitalist; ATTEND Hospitalist
PROC: 3E0234Z Introduction of Serum, Toxoid and Vaccine into Muscle, Percutaneous Approach (ICD-10-PCS; principal; 2019-01-01)
DX: E22.2 Syndrome of inappropriate secretion of antidiuretic hormone (principal); A41.50 Gram-negative sepsis, unspecified; T83.511A Infection and inflammatory reaction due to indwelling urethral catheter, initial encounter; C7B.8 Other secondary neuroendocrine tumors; N39.0 Urinary tract infection, site not specified; C61 Malignant neoplasm of prostate; D63.0 Anemia in neoplastic disease; I25.10 Atherosclerotic heart disease of native coronary artery without angina pectoris; Z23 Encounter for immunization; I48.2 Chronic atrial fibrillation; E11.65 Type 2 diabetes mellitus with hyperglycemia; N40.0 Benign prostatic hyperplasia without lower urinary tract symptoms; I10 Essential (primary) hypertension; E78.5 Hyperlipidemia, unspecified; F03.90 Unspecified dementia, unspecified severity, without behavioral disturbance, psychotic disturbance, mood disturbance, and anxiety; R06.6 Hiccough; Y73.8 Miscellaneous gastroenterology and urology devices associated with adverse incidents, not elsewhere classified; Z79.01 Long term (current) use of anticoagulants; Z79.899 Other long term (current) drug therapy; Z95.5 Presence of coronary angioplasty implant and graft
CPT/HCPCS: 36415; 80048; 80053; 81003; 81015; 82248; 82436; 82533; 82570; 83615; 83735; 83930; 83935; 84100; 84133; 84300; 84443; 84550; 85025; 87077; 87086; 87186; 93005; A4217; J0696; J1650; J1940; J3490; Q0161; Q0162

== ENCOUNTER 2019-01-16 09:00 | Outpatient (CLI) | payer MEDICARE ==
--- NOTE | 2019-01-16 15:25 | PET ---
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 Patient is undergoing chemotherapy. Exam requested to evaluate response to treatment. TECHNIQUE: PET scanning with CT attenuation correction performed from the base of the brain through the proximal thighs following the intravenous administration of 11.7 mCi F18-FDG. COMPARISON: PET CT dated 11/19/18. FINDINGS: Abdominopelvic hypermetabolic lymph nodes are again seen. These demonstrate SUVs of 10.9 in the aorto caval region (previously 7.7), 4.4 in the left common iliac (previously 8), 5.7 in the right common i liac, 12.6 in the right external iliac (previously 8.6), 13.3 in the right internal iliac (previously 10.4), 27.2 in the left external iliac (previously 13.4), and 3.6 in the left obturator lymph nodes. No samuel hypermetabolism is seen in the neck, chest, and axilla. No hypermetabolic pulmonary nodules, liver, adrenal, or skeletal lesions are identified. There is physiologic activity in the GI and tracts, and the visualized portions of the brain. The CT scan used for attenuation correction demonstrates no evidence of pleural effusions or ascites. Cholelithiasis is present. IMPRESSION: Mild interval worsening since 11/19/18. POS: KAYLYN
== END 2019-01-16 09:01 | disposition home or self-care (01) ==
LOC: PET 09:00
PROVIDERS: ATTEND Internal Medicine Hematology & Oncology
DX: C61 Malignant neoplasm of prostate (principal)
CPT/HCPCS: 78815; A9552

== ENCOUNTER 2019-01-22 17:55 | Emergency (ER) | payer MEDICARE ==
[2019-01-22 19:25] LABS: Bilirubin Negative (Negative); Blood, Urine Large (Negative); Glucose, Urine (Dipstick) Negative (Negative); Leukocyte Small (Negative); Nitrite Positive (Negative); Protein, Urine (Dipstick) 100 mg/dL (Neg-Trace)
[2019-01-22 19:28] LABS: Clarity Opaque (Clear)
[2019-01-22 19:32] LABS: RBC/HPF 21-50 HPF (0-3); WBC/HPF Greater Than 50 HPF (0-3)
[2019-01-22 19:33] LABS: Bacteria/HPF 4+ HPF (None Seen); Calcium Oxalate Crystals 1+ HPF (None Seen); Squamous Epithelial None Seen HPF (0-3)
[2019-01-22 19:45] LABS: Anion Gap 8 mmol/L (10-20); BUN (Urea Nitrogen) 11 mg/dL (8.4-25.7); Calc. Creatinine Clearance 0 mL/min (70-130); Calcium 8.9 mg/dL (7.8-10.44); Carbon Dioxide 26 mmol/L (23-31); Chloride 94 mmol/L (98-107); Estimated GFR-MDRD 73; Glucose 112 mg/dL (83-110); Potassium 4.1 mmol/L (3.5-5.1); Sodium 124 mmol/L (136-145)
== END 2019-01-22 21:14 | disposition home or self-care (01) ==
LOC: ERS 17:55
DX: E87.1 Hypo-osmolality and hyponatremia (principal); N39.0 Urinary tract infection, site not specified; I48.91 Unspecified atrial fibrillation
CPT/HCPCS: 36415; 80048; 81001; 99283

== ENCOUNTER 2019-03-07 07:43 | Outpatient (CLI) | payer MEDICARE ==
--- NOTE | 2019-03-07 09:29 | PET ---
EXAM: PET CT skull to mid thigh COMPARISON: 01/16/2019 HISTORY: Malignant poorly differentiated neuroendocrine tumors and malignant neoplasm of the prostate TECHNIQUE: A PET/CT was performed from the skull to the mid thigh after administration of 10.7 millic uries of F-18 FDG. Evaluation was performed on a [employer] workstation. FINDINGS: NECK: No areas of hypermetabolic activity CHEST: No areas of hypermetabolic activity ABDOMEN/PELVIS: Stable aortocaval lymph node with max SUV value of 7.6. Stable right pelvic lymph nodes with max SUV value of 11.0. There is an area of hypermetabolic activity with max SUV value of 4.8 along the left external iliac a rtery. The ureter is also in this location and this may represent activity within the ureter rather than a lymph node. The lymph node in the left common iliac artery region does not demonstrate hypermetabolic activity bu t is stable in size. SKELETON: No areas of hypermetabolic activity CT images used for attenuation correction show gallstones in the gallbladder and degenerative changes in the spine.. IMPRESSION: No significant change in aortocaval and pelvic disease.
== END 2019-03-07 07:44 | disposition home or self-care (01) ==
LOC: PET 07:43
PROVIDERS: ATTEND Internal Medicine Hematology & Oncology
DX: C61 Malignant neoplasm of prostate (principal)
CPT/HCPCS: 78815; A9552

== ENCOUNTER 2019-04-06 11:12 | Inpatient (IN) | payer MEDICARE ==
[2019-04-06] MEDS ORDERED: Piperacillin/Tazobactam 4.5 GM VIAL ONE (11:21)
[2019-04-06] MEDS ORDERED: Acetaminophen 500 MG TAB ONE (11:22)
[2019-04-06 11:56] LABS: #Lymphocytes 1.2 thou/uL (1.20-3.40); #Monocytes 1.6 thou/uL (0.11-0.59); #Neutrophils 14.8 thou/uL (1.40-6.50); %Basophils 0.1 % (0.0-1.0); %Eosinophils 0.1 % (0.0-10.0); %Lymphocytes 6.7 % (21.0-51.0); %Monocytes 9.2 % (0.0-10.0); %Neutrophils 83.9 % (42.0-75.0); Hemoglobin 10.7 g/dL (14.0-18.0); Mean Corpuscular HGB CONC 32.1 g/dL (32.0-36.0); Mean Platelet Volume 7.8 fL (7.4-10.4); Platelet Count 148 thou/uL (130-400); RBC Distribution Width 16.1 % (11.5-14.5); Red Blood Cell (RBC) Count 3.23 mill/uL (4.70-6.10); White Blood Cell (WBC) Count 17.7 thou/uL (4.8-10.8)
--- NOTE | 2019-04-06 11:58 | RAD ---
XR Chest 1 View Portable HISTORY: Cough and wheezing. Fever. History of prostate cancer. COMPARISON: None. FINDINGS: Heart size is enlarged with postop sternotomy change. Pacemaker is present. The lungs are c lear of infiltrates. There are no signs of failure. Old right rib fractures are present. IMPRESSION: Marked cardiomegaly. No acute findings.
[2019-04-06 12:26] LABS: ALT (SGPT) 25 U/L (8-55); AST (SGOT) 39 U/L (5-34); Albumin 4.3 g/dL (3.4-4.8); Alkaline Phosphatase 121 U/L (40-110); Anion Gap 19 mmol/L (10-20); BUN (Urea Nitrogen) 16 mg/dL (8.4-25.7); Bilirubin, Total 1.6 mg/dL (0.2-1.2); Calc. Creatinine Clearance 0 mL/min (70-130); Calcium 9.2 mg/dL (7.8-10.44); Carbon Dioxide 19 mmol/L (23-31); Chloride 106 mmol/L (98-107); Estimated GFR-MDRD 79; Globulin 3.4 g/dL (2.4-3.5); Glucose 118 mg/dL (83-110); Lipase Less than 4 U/L (8-78); Potassium 4.4 mmol/L (3.5-5.1); Protein, Total 7.7 g/dL (5.8-8.1); Sodium 140 mmol/L (136-145)
--- NOTE | 2019-04-06 12:35 | CT ---
EXAM: CT brain without contrast HISTORY: Prostate cancer with altered mental status COMPARISON: None TECHNIQUE: Multiple contiguous axial images were obtained and a CT of the brain without contrast. FINDINGS: There are scattered hypodensities in the subcortical and periventricular white matter consi stent with small vessel ischemic disease. There is no evidence of hydrocephalus, intracranial hemorrhage, or extra-axial fluid collection. The calvarium and overlying soft tissues are unremarkable. The visualized paranasal sinuses and masto id air cells are well aerated. IMPRESSION: No evidence of acute intracranial abnormality
[2019-04-06 12:46] LABS: Bilirubin Small (Negative); Blood, Urine Large (Negative); Glucose, Urine (Dipstick) Negative (Negative); Leukocyte Small (Negative); Nitrite Negative (Negative); Protein, Urine (Dipstick) > or equal to 300 mg/dL (Neg-Trace)
[2019-04-06 12:47] LABS: Clarity Turbid (Clear)
[2019-04-06 12:54] LABS: Bacteria/HPF 4+ HPF (None Seen); Squamous Epithelial 0-3 HPF (0-3); WBC/HPF Greater Than 50 HPF (0-3)
[2019-04-06] MEDS ORDERED: Vancomycin 1.5 GRAM/300 ML BAG 1.5 GM in Premix Bag 1 BAG IVPB SCH (13:00)
[2019-04-06 14:46] LABS: Lactic Acid 1.9 mmol/L (0.5-2.2)
[2019-04-06] MEDS ORDERED: Aspirin Chewable 81 MG TAB ONE (14:49)
[2019-04-06 14:54] LABS: Troponin I 0.076 ng/mL (< 0.028)
[2019-04-06 18:15] LABS: Troponin I 0.076 ng/mL (< 0.028)
--- NOTE | 2019-04-06 18:41 | HP ---
PRIMARY CARE PHYSICIAN: Desiree Rodas MD PRIMARY UROLOGIST: Den Cordero MD CHIEF COMPLAINT: Altered mentation. HISTORY OF PRESENT ILLNESS: The patient is an 84-year-old male with chronic indwelling Batista catheter and small cell carcinoma of prostate, stage IV, presented to the emergency room by EMS from [facility] with altered mentation. The confusion started last night. He was pulling the Batista catheter and was confused. There was no fever reported. No cough, shortness of breath, wheezing, or focal neurologic deficits reported. At this time, the patient's mentation has somewhat improved. He denies any complaints at this time. Per the EMS, his vital signs showed temperature 101.3, heart rate of 96 with respirations of 24 with a blood sugar of 165. His last chemotherapy for prostate cancer was approximately 2 weeks ago. In the emergency room, he received vancomycin, Zosyn, Tylenol, IV fluid, and aspirin. PAST MEDICAL HISTORY: 1. Prostate cancer, on chemotherapy. 2. Chronic anemia. 3. Paroxysmal atrial fibrillation, on anticoagulation. 4. Coronary artery disease, status post stent placement. 5. Chronic indwelling Batista catheter. 6. Chronic hyponatremia. 7. Chronic hiccups. PAST SURGICAL HISTORY: Coronary stent placement. ALLERGIES: THE PATIENT IS ALLERGIC TO AMANTADINE. CURRENT HOME MEDICATIONS: 1. Eliquis 2.5 mg b.i.d. 2. Flomax 0.4 mg q.p.m. 3. Baclofen 10 mg 3 times daily for chronic hiccups. 4. Bystolic 10 mg daily, which was recently started by Dr. George. 5. Zofran as needed. 6. Compazine as needed. 7. Florastor 250 mg daily. 8. Sodium chloride 1 g b.i.d. for chronic hyponatremia. SOCIAL HISTORY: As discussed above. He is full code. Decision maker is his son, Liam, at the bedside. He currently lives at [facility]. FAMILY HISTORY: Negative for heart disease. REVIEW OF SYSTEMS: Review of systems is limited due to current mentation. PHYSICAL EXAMINATION: VITAL SIGNS: In the emergency room showed temperature 101.7, respirations 22, pulse rate of 75 with blood pressure of 202/100. His blood pressure improved to 142/ 67. GENERAL: An 84-year-old male with altered mentation. HEENT: Head, atraumatic and normocephalic. Sclerae anicteric. Dry mucous membranes. No oral lesion. NECK: Supple. No JVD. No carotid bruit. No neck stiffness. LUNGS: Showed scattered rhonchi without any rales. Lungs were symmetrical. HEART: S1, S2 present. Regular rate and rhythm. No rubs or gallops. ABDOMEN: Soft, nontender. Bowel sounds present. No rebound or guarding. No costovertebral angle tenderness. EXTREMITIES: 3+ edema in bilateral lower extremities. No calf tenderness. NEUROLOGIC: Grossly nonfocal. Power was 5/5 in all extremities. Sensation to touch was normal bilaterally. PSYCHIATRY: The patient is alert and awake with intermittent confusion. SKIN: Warm and dry. LYMPH NODES: No palpable lymph nodes in the neck. PERIPHERAL VASCULAR: Radial pulses palpable bilaterally. MUSCULOSKELETAL: No joint swelling tenderness. LABORATORY FINDINGS: CBC showed WBC 17.7 with 83.9% neutrophil, hemoglobin 10.7 , and hematocrit 33.2. Chemistry showed sodium 140, potassium 4.4, chloride 106, bicarb 19 with lactic acid 2.5, creatinine 0.92. Total bilirubin 1.6. Alkaline phosphatase 121. Troponin was 0.071, CK-MB was 245. Urinalysis showed greater than 50 wbc's with 4+ bacteria. IMAGING STUDIES: CT scan of the brain by my review was negative for acute findings. Chest x-ray by my review was negative for infiltrate or edema, it showed cardiomegaly. EKG by my review showed paced rhythm. IMPRESSION: 1. Toxic Metabolic Encephalopathy/Severe sepsis, secondary to catheter- associated urinary tract infection. 2. Abnormal LFTs. 3. Metabolic acidosis/lactic acidosis. 4. Type 2 myocardial infarction. 5. Chronic macrocytic anemia. 6. Paroxysmal atrial fibrillation, on anticoagulation. 7. Coronary artery disease, status post stent placement. 8. Prostate cancer, stage IV on chemotherapy. 9. Chronic indwelling Batista catheter. 10. Chronic hyponatremia, on sodium chloride tablet. 11. Hypertension. 12. Chronic hiccups, on baclofen. PLAN: The patient will be monitored on the telemetry unit. We will continue empiric antibiotics. We will get right upper quadrant ultrasound to rule out gallbladder etiology. Recheck labs in a.m. We will start him on gentle IV hydration. His repeat lactic acid was 1.9. We will recheck labs in a.m. We will continue vancomycin and Zosyn. We will consult Infectious Disease, Dr. Lopez, once the cultures are out. Plan of care was discussed with the patient and the family in detail. They stated understanding. Job ID: [id number] MTDD
[2019-04-06] MEDS ORDERED: Acetaminophen 325 MG TAB PO PRN (22:29)
[2019-04-06] MEDS ORDERED: Ondansetron ODT 4 MG TAB PO PRN (22:29)
[2019-04-06] MEDS ORDERED: Ondansetron PF 4 MG/2 ML Vial IVP PRN (22:29)
[2019-04-06] MEDS ORDERED: Calcium Carbonate 500 MG ChewTAB PO PRN (22:29)
[2019-04-06] MEDS ORDERED: Piperacillin/Tazobactam 3.375 GM in Sodium Chloride 0.9% 100 ML IVPB SCH (22:30)
[2019-04-06] MEDS ORDERED: Sodium Chloride 0.9% 1,000 ML IV SCH (22:30)
[2019-04-07] MEDS ORDERED: Piperacillin/Tazobactam 3.375 GM VIAL ONE ×3 (00:01→12:42)
[2019-04-07 05:52] LABS: #Lymphocytes 0.7 thou/uL (1.20-3.40); #Neutrophils 10.5 thou/uL (1.40-6.50); %Eosinophils 0.1 % (0.0-10.0); %Lymphocytes 5.9 % (21.0-51.0); %Monocytes 8.5 % (0.0-10.0); %Neutrophils 85.5 % (42.0-75.0); Hemoglobin 9.3 g/dL (14.0-18.0); Mean Corpuscular HGB CONC 32.8 g/dL (32.0-36.0); Mean Corpuscular Hemoglobin 33.8 pg (27.0-31.0); Mean Platelet Volume 7.8 fL (7.4-10.4); Platelet Count 122 thou/uL (130-400); RBC Distribution Width 15.9 % (11.5-14.5); Red Blood Cell (RBC) Count 2.76 mill/uL (4.70-6.10); White Blood Cell (WBC) Count 12.3 thou/uL (4.8-10.8)
[2019-04-07 06:09] LABS: ALT (SGPT) 23 U/L (8-55); AST (SGOT) 30 U/L (5-34); Albumin 3.5 g/dL (3.4-4.8); Alkaline Phosphatase 91 U/L (40-110); Anion Gap 11 mmol/L (10-20); BUN (Urea Nitrogen) 20 mg/dL (8.4-25.7); Bilirubin, Total 0.9 mg/dL (0.2-1.2); Calc. Creatinine Clearance 0 mL/min (70-130); Calcium 8.8 mg/dL (7.8-10.44); Carbon Dioxide 24 mmol/L (23-31); Chloride 108 mmol/L (98-107); Estimated GFR-MDRD 77; Glucose 117 mg/dL (83-110); Magnesium 1.8 mg/dL (1.6-2.6); Potassium 4.2 mmol/L (3.5-5.1); Protein, Total 6.5 g/dL (5.8-8.1); Sodium 139 mmol/L (136-145)
[2019-04-07 06:14] LABS: Phosphorus 2.3 mg/dL (2.3-4.7)
[2019-04-07] MEDS: Piperacillin/Tazobactam 3.375 GM in Sodium Chloride 0.9% 100 ML IVPB SCH ×3 (06:57→17:46)
--- NOTE | 2019-04-07 08:46 | ULT ---
RIGHT UPPER QUADRANT ULTRASOUND CLINICAL HISTORY: Elevated LFTs and history of cancer. COMPARISON: PET/CT dated March 07, 2019 FINDINGS: Liver:Normal echotexture without focal mass. Intrahepatic bile ducts: No intrahepatic or extrahepatic biliary dilation.; Common bile duct: 3 mm. Gallbladder: Mildly distended with mild amount of internal gallbladder sludge. The gallbladder wall i s mildly prominent measuring 2.2 mm. Lazaro's sign:None Main portal vein:Patent with hepatopedal flow. Pancreas:Visualized pancreas appears normal. Right kidney: Right kidney measures 12.3 x 6.4 x 6.7 cm. No focal renal lesion or hydronephrosis. Additional findings: Trace fluid is seen surrounding the right hepatic lobe IMPRESSION: 1. Gallbladder sludge with mild gallbladder distention. No sonographic Lazaro's sign is reported. Sma ll amount of fluid is seen in the gallbladder fossa and near the right hepatic lobe. Findings are equivocal on the current examination for acute cholecystitis. If clinically indicated a follow-up HID A scan may be helpful. 2. Small amount of ascites within the right upper quadrant.
[2019-04-07] MEDS ORDERED: Prochlorperazine Maleate 5 MG TAB PO PRN (11:12)
[2019-04-07] MEDS ORDERED: Nebivolol HCl 5 MG TAB PO SCH (11:15)
[2019-04-07] MEDS ORDERED: Apixaban 2.5 MG TAB PO SCH (11:15)
[2019-04-07] MEDS ORDERED: Vancomycin 1.5 GRAM/300 ML BAG 1.5 GM in Premix Bag 1 BAG IVPB SCH (14:00)
[2019-04-07] MEDS: Baclofen 10 MG TAB PO SCH ×2 (14:04→17:46)
[2019-04-07 14:21] VITALS: BMI 28.8
[2019-04-07] MEDS ORDERED: Furosemide 20 MG/2 ML VIAL SLOW IVP SCH (14:30)
[2019-04-07] MEDS ORDERED: Tamsulosin HCl 0.4 MG CAP PO SCH ×2 (18:45→21:00)
[2019-04-07] MEDS ORDERED: Losartan 25 MG TAB PO SCH (18:45)
[2019-04-07] MEDS: Apixaban 2.5 MG TAB PO SCH (22:06)
--- NOTE | 2019-04-07 22:18 | CON ---
DATE OF CONSULTATION: 04/07/2019 REASON FOR CONSULTATION: Bacteremia. HISTORY OF PRESENT ILLNESS: An 84-year-old patient has a history of atrial fibrillation, cognitive dysfunction, prostate cancer, currently undergoing chemotherapy under Dr. Daniel's supervision. I do not have records of the type of chemotherapy that he is receiving. He lives in a care home and developed altered mental status and fever. He denies any headaches, no shortness of breath, cough, or sputum production. No back pain. No abdominal pain or diarrhea. He does acknowledge inability to control his urine flow, but denies burning sensation. No joint symptoms, no skin disorder. PAST MEDICAL HISTORY: 1. Atrial fibrillation. 2. Coronary disease with stents. 3. Prostate cancer, stage IV, on chemotherapy. 4. Hypertension. 5. Ablation with pacemaker. 6. Cognitive dysfunction. SOCIAL HISTORY: Never smoker. Lives in a care home. ALLERGIES: AMANTADINE. CURRENT MEDICATIONS: P.r.n. medications: 1. Eliquis. 2. Lioresal. 3. Lasix. 4. Normodyne. 5. Bystolic. 6. Zofran. 7. Zosyn. 8. Vancomycin. FAMILY HISTORY: Noncontributory. PHYSICAL EXAMINATION: VITAL SIGNS: BP 130/70, pulse 82, respirations 14. SKIN: Shows no areas of skin breakdown. The patient has a Batista catheter inserted. No lymphadenopathy. HEENT: Ocular movements conjugate. Oral cavity moist, quite a few teeth in place with periodontitis, moderate, somewhat dry oral mucosa. NECK: Supple. No jugular vein distention. LUNGS: Symmetric. Clear breath sounds. HEART: S1 and S2, regular rate. No S3 or S4. ABDOMEN: Soft with a question of bladder distention. No ascites. No organomegaly. He has a Batista catheter in place with clear urine drainage. MUSCULOSKELETAL: No back tenderness. No joint inflammatory activity. EXTREMITIES: Pulses are 1+ in dorsalis pedis and popliteal with 1+ edema. Cap refill is normal. Plantar responses are flexor. LABORATORY DATA: White cell count is 17,000 down to 12,000, hemoglobin 10.7, platelets 148 and now 122 with a predominance of mature neutrophils and a chemistry with a sodium of 140, creatinine 0.92, bilirubin 1.6, AST 39, ALT 121, albumin 4.3. Followup labs have shown resolution of the liver function abnormalities. BNP is still high at 715, and urinalysis with greater than 50 wbcs. Microbiology with E. coli from urine culture and from 2 sets of blood cultures. One of the sets has gram-positive cocci, likely to represent contamination of the sample. ASSESSMENT: 1. Some form of prostate cancer, presumably metastatic with current treatment via chemotherapy. 2. Altered mental status with possible urinary retention. 3. Chronic cognitive dysfunction, possibly vascular dementia. 4. Bacteremia due to Escherichia coli, likely from urinary obstruction and pyelonephritis or prostatitis. Escherichia coli is likely pathogen. DISCUSSION: The patient most likely has urinary obstruction from his prostate enlargement with bacteremia, may have pyelonephritis. The ultrasound showed no evidence of obstruction. The patient will eventually need a voiding trial. I do not know, if he had measured urinary retention on admission. He will continue on Zosyn and discontinue vancomycin. We will wait for the final susceptibility results. Hopefully we can transition to oral antimicrobial therapy for discharge planning. Due to inability to provide with accurate history, we will have to depend on the reports from the care home regarding the patient's ability to void without catheterization and then I would attempt a voiding trial without catheter in preparation for discharge planning. The duration of therapy would be around 10 days approximately. The gram-positive cocci in one of the sets is probably contaminant. Job ID: [id number]
--- NOTE | 2019-04-07 23:10 | PDOC.HOSPP ---
- Subjective Encounter Date: 04/07/19 Encounter Time: 11:30 Subjective: Patient seen and examined for Sepsis. Intermittent confusion. No CP/ Palpitations. No new complaints. No overnight events - Objective Vital Signs & Weight: Vital Signs (12 hours) Temp Pulse Pulse Pulse Resp BP BP 04/07/19 22:00 99.0 F 70 18 04/07/19 16:51 78 70 188/86 H 179/93 H 04/07/19 15:17 98.1 F 70 20 04/07/19 13:35 04/07/19 13:30 98.1 F 70 18 BP Pulse Ox Pulse Ox Pulse Ox 04/07/19 22:00 174/88 H 97 04/07/19 16:51 97 97 04/07/19 15:17 188/86 H 99 04/07/19 13:35 96 04/07/19 13:30 195/97 H 96 Weight Weight 198 lb 7 oz I&O: 04/06/19 04/07/19 04/08/19 06:59 06:59 06:59 Intake Total 1100 Output Total 2650 Balance -1550 Result Diagrams: 04/07/19 05:19 04/07/19 05:19 Additional Labs: Microbiology 04/06/19 12:25 Urine horan catheter Urine Culture - Preliminary Presumptive Escherichia coli 04/06/19 11:27 Venous blood - Right Arm Blood Culture - Preliminary Gram Negative Donn Gram Positive Cocci 04/06/19 11:27 Venous blood - Left Arm Blood Culture - Preliminary Presumptive Escherichia coli Radiology Reviewed by me: Yes (RUQ USG - reviewed) EKG Reviewed by me: Yes (Tele SR) Hospitalist ROS - Review of Systems ROS unobtainable: due to mental status - Medication Medications: Active Medications Generic Name Dose Route Start Last Admin Trade Name Freq PRN Reason Stop Dose Admin Apixaban 2.5 mg 04/07/19 21:00 04/07/19 22:06 Eliquis PO 2.5 mg BID RAPHAEL Administration Baclofen 10 mg 04/07/19 12:00 04/07/19 17:46 Lioresal PO 10 mg TID-WM RAPHAEL Administration Piperacillin Sod/Tazobactam 100 mls @ 200 mls/hr 04/07/19 06:00 04/07/19 17: 46 Sod 3.375 gm/ Sodium Chloride IVPB 100 mls Q6HR RAPHAEL Administration - Exam General Appearance: NAD Heart: RRR, no gallops, no rubs, normal peripheral pulses Respiratory: no wheezes, no rales, no ronchi, normal chest expansion Gastrointestinal: soft, non-tender, non-distended, normal bowel sounds Extremities: no edema Neurological: no new deficit Hosp A/P - Plan 1. Severe sepsis, secondary to catheter-associated urinary tract infection with bacteremia (POA) 2. Abnormal LFTs prob due to above 3. Metabolic acidosis/lactic acidosis. 4. Type 2 myocardial infarction. 5. Chronic macrocytic anemia. 6. Paroxysmal atrial fibrillation, on anticoagulation. 7. Coronary artery disease, status post stent placement. 8. Prostate cancer, stage IV on chemotherapy. 9. Chronic indwelling Horan catheter. 10. Chronic hyponatremia, on sodium chloride tablet. 11. Hypertension. uncontrolled 12. Chronic hiccups, on baclofen. PLAN: Vancomycin dced DC IVF PT/OT Cont Eliquis Await Urology input Add Losartan Cont other meds as above
--- NOTE | 2019-04-07 23:40 | CON ---
DATE OF CONSULTATION: 04/07/2019 REASON FOR CONSULT: Urinary tract infection. CHIEF COMPLAINT: Altered mental status. HISTORY OF PRESENT ILLNESS: This is an 84-year-old male with a history of small cell carcinoma of the prostate, stage IV, diagnosed after transurethral resection of prostate. He has been treated with systemic therapy. He did end up having regrowth of the prostate tissue requiring Batista catheter to treat urinary retention. He has had recurrent infections since having the catheter replaced. He recently developed altered mental status and presented to the emergency room here via ambulance. He was diagnosed with sepsis secondary to urinary tract infection and is to be admitted. Speaking with him now, he is oriented and tells me that while the catheter bothers him simply by being in place and he would like for it to be removed, he is not having any significant discomfort from it. He denies hematuria, suprapubic pain, flank pain, nausea, vomiting. He has had fevers. PAST MEDICAL HISTORY: Prostate cancer, atrial fibrillation, coronary artery disease, urinary retention. SURGICAL HISTORY: Cardiac stent, transurethral resection of prostate. ALLERGIES: AMANTADINE. HOME MEDICATIONS: Reviewed. Pertinent for Flomax, which is no longer necessary. SOCIAL HISTORY: Nonsmoker. Currently residing at [facility]. No substance abuse. FAMILY HISTORY: Reviewed, negative for urologic malignancy. REVIEW OF SYSTEMS: Ten point review of systems negative except as mentioned above. PHYSICAL EXAMINATION: VITAL SIGNS: T-max in the emergency room has been 101.7. He has been hypertensive with normal pulse rate. Repeat blood pressure measurements have returned closer to normal. GENERAL: No acute distress, conversant. HEAD: Normocephalic, atraumatic. Sclerae nonicteric. NECK: Supple, trachea midline. LUNGS: Breathing nonlabored. Symmetric chest expansion. HEART: Regular rate and rhythm. ABDOMEN: Soft, nontender, nondistended. No CVA tenderness. No suprapubic tenderness. : A 16-Hungarian Batista catheter in position, StatLock appears to have been placed with the catheter on tension. This was corrected by me during my exam. EXTREMITIES: Without clubbing or cyanosis. 1+ edema on my exam. NEUROLOGIC: Normal strength throughout all extremities. No cranial nerve palsies. PSYCHIATRIC: Normal mood and affect. NEUROLOGIC: Alert and oriented x3. SKIN: Warm and dry. LABORATORY STUDIES: CBC from Barry 8, white count of 17, this has dropped to 12 today, creatinine is normal. Urinalysis, white blood cells and bacteria. IMAGING: Reviewed renal ultrasound fails to identify hydronephrosis. IMPRESSION: Sepsis secondary to catheter associated urinary tract infection-agree with broad-spectrum antibiotics. Culture pending. Urinary retention-we will exchange Batista catheter while he is inpatient. He no longer requires Flomax, if he is catheter dependent. Job ID: [id number]
[2019-04-08] MEDS: Piperacillin/Tazobactam 3.375 GM in Sodium Chloride 0.9% 100 ML IVPB SCH ×4 (00:16→17:42)
[2019-04-08] MEDS: Labetalol HCl 100 MG/20 ML VIAL SLOW IVP PRN ×2 (05:23→17:57)
[2019-04-08] MEDS: Apixaban 2.5 MG TAB PO SCH ×2 (08:55→20:45)
[2019-04-08] MEDS: Baclofen 10 MG TAB PO SCH ×3 (08:55→17:42)
[2019-04-08] MEDS: Losartan 25 MG TAB PO SCH ×2 (08:56→20:45)
[2019-04-08] MEDS: Nebivolol HCl 5 MG TAB PO SCH (08:56)
[2019-04-08] MEDS: Saccharomyces boulardii 250 MG CAP PO SCH (08:57)
[2019-04-08] MEDS ORDERED: Prevnar 13-Val Conj/PF 0.5 ML SYRINGE IM ONE (09:00)
[2019-04-08] MEDS ORDERED: Furosemide 20 MG/2 ML VIAL SLOW IVP SCH (09:00)
[2019-04-08] MEDS ORDERED: FLU VACC TS2019-20(65YR UP)/PF 180 MCG/0.5 ML SYRINGE IM ONE (09:00)
--- NOTE | 2019-04-08 11:45 | PQF ---
KAM FOLEY MALIK MD [id number] CLINICAL DOCUMENTATION IMPROVEMENT CLARIFICATION FORM: ICD-10 Updated PLEASE DO AN ADDENDUM TO THE PROGRESS NOTE WITH ANY DOCUMENTATION UPDATES OR ADDITIONS AND CARRY THROUGH TO DC SUMMARY. THANK YOU. DATE: 04/08/2019 ATTN:DR. Mariah MCKEON Please exercise your independent, professional judgment in responding to the clarification form. Clinical indicators are provided on the bottom of this form for your review. Please check appropriate box(s): [ ] Encephalopathy: Type: [ ] Acute [ ] Subacute [ ] Chronic Etiology: [ ] Hypertensive [ ] Metabolic [ ] Toxic [ ] Hepatic with Coma [ ] Hepatic w/o Coma [ ] Hypoxic [ ] Septic [ ] Wernickes [ ] Drug induced: [ ] Unspecified [ ] in the setting of underlying dementia [ ] Other (please specify) [ ] Other diagnosis [ ] Unable to determine In addition, please specify: Present on Admission (POA): [ ] Yes [ ] No [ ] Unable to determine For continuity of documentation, please document condition throughout progress notes and discharge summary. Thank You. CLINICAL INDICATORS - SIGNS / SYMPTOMS / LABS / RESULTS AND LOCATION IN EMR 04/06 ED REPORT: PT BECAME CONFUSED AND BEGAN TO PULL AT HAN CATHETER THE NIGHT BEFORE PRESENTING TO ED. WOKE UP WITH ALTERED MENTATION. 04/06 H&P(LADHA) HPI: PT PRESENTED TO ED WITH ALTERED MENTATION AND CONFUSION, IMPRESSION:1). SEVERED SEPSIS, SECONDARY TO CATHETER-ASSOCIATED URINARY TRACT INFECTION. 04/07 CONSULT (TRAVON) ASSESSMENT: 2). ALTERED MENTAL STATUS W POSSIBLE URINARY RETENTION. 3). 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 DAREK (This form is maintained as a part of the permanent medical record) 2014 [employer]. All Rights Reserved [email or web address] [phone] [email or web address]
[2019-04-08] MEDS ORDERED: Tamsulosin HCl 0.4 MG CAP PO SCH (21:00)
--- NOTE | 2019-04-08 21:15 | PDOC.HOSPP ---
- Subjective Encounter Date: 04/08/19 Encounter Time: 14:00 Subjective: Patient seen and examined for Sepsis. Mentation improving. No new complaints. No overnight events - Objective Vital Signs & Weight: Vital Signs (12 hours) Temp Pulse Pulse Pulse Resp BP BP 04/08/19 18:47 73 18 04/08/19 18:00 73 75 173/85 H 04/08/19 17:57 73 193/88 H 04/08/19 15:22 97.9 F 75 14 04/08/19 14:17 74 88 168/96 H 04/08/19 12:14 97.9 F 78 20 BP BP Pulse Ox Pulse Ox 04/08/19 18:47 173/75 H 04/08/19 18:00 184/89 H 04/08/19 17:57 04/08/19 15:22 180/89 H 99 04/08/19 14:17 167/101 H 100 04/08/19 12:14 153/79 H 99 Weight Weight 198 lb 7 oz I&O: 04/07/19 04/08/19 04/09/19 06:59 06:59 06:59 Intake Total 1450 525 Output Total 3250 1700 Balance -1800 -1175 Result Diagrams: 04/09/19 04:53 04/09/19 04:53 EKG Reviewed by me: Yes (Tele paced) Hospitalist ROS - Review of Systems Respiratory: denies: cough, dry, shortness of breath, hemoptysis, SOB with excertion, pleuritic pain, sputum, wheezing, other Cardiovascular: denies: chest pain, palpitations, orthopnea, paroxysmal noc. dyspnea, edema, light headedness, other - Medication Medications: Active Medications Generic Name Dose Route Start Last Admin Trade Name Freq PRN Reason Stop Dose Admin Apixaban 2.5 mg 04/07/19 21:00 04/08/19 20:45 Eliquis PO 2.5 mg BID RAPHAEL Administration Baclofen 10 mg 04/07/19 12:00 04/08/19 17:42 Lioresal PO 10 mg TID-WM RAPHAEL Administration Piperacillin Sod/Tazobactam 100 mls @ 200 mls/hr 04/07/19 06:00 04/08/19 17: 42 Sod 3.375 gm/ Sodium Chloride IVPB 100 mls Q6HR RAPHAEL Administration Labetalol HCl 10 mg 04/07/19 11:12 04/08/19 17:57 Normodyne SLOW IVP 10 mg Q4H PRN Administration Systolic BP > 180 Losartan Potassium 25 mg 04/08/19 09:00 04/08/19 20:45 Cozaar PO 25 mg BID RAPHAEL Administration Nebivolol 10 mg 04/08/19 09:00 04/08/19 08:56 Bystolic PO 10 mg DAILY RAPHAEL Administration Saccharomyces Boulardii 250 mg 04/08/19 09:00 04/08/19 08:57 Florastor PO 250 mg DAILY RAPHAEL Administration Sodium Chloride 10 ml 04/06/19 22:29 04/08/19 08:59 Flush - Normal Saline IVF 10 ml PRN PRN Administration Saline Flush - Exam General Appearance: NAD Heart: RRR, no gallops Respiratory: no rales, no ronchi Gastrointestinal: soft, non-distended, normal bowel sounds Extremities: no edema Hosp A/P - Plan 1. Toxic Metabolic Encephalopathy (POA)/Severe sepsis, secondary to catheter- associated E coli urinary tract infection with bacteremia (POA) 2. Abnormal LFTs prob due to above 3. Metabolic acidosis/lactic acidosis. 4. Type 2 myocardial infarction. 5. Chronic macrocytic anemia. 6. Paroxysmal atrial fibrillation, on anticoagulation. 7. Coronary artery disease, status post stent placement. 8. Prostate cancer, stage IV on chemotherapy. 9. Chronic indwelling Batista catheter. 10. Chronic hyponatremia, on sodium chloride tablet. 11. Hypertension. uncontrolled 12. Chronic hiccups, on baclofen. PLAN: Change IV Zosyn to Ceftriaxone Increase Losartan dose SNF Eval Cont other meds PT/OT Cont Eliquis Cont other meds as above
[2019-04-08] MEDS: cefTRIAXone\\ROCEPHIN 2 GM in Sodium Chloride 0.9% 100 ML IVPB SCH (23:41)
[2019-04-08] MEDS ORDERED: ALPRAZolam 0.25 MG TAB PO SCH (23:45)
[2019-04-09] MEDS: hydrALAZINE 20 MG/ML VIAL SLOW IVP PRN ×2 (00:55→04:07)
[2019-04-09 05:53] LABS: Anion Gap 14 mmol/L (10-20); BUN (Urea Nitrogen) 19 mg/dL (8.4-25.7); Calc. Creatinine Clearance 98 mL/min (70-130); Calcium 8.5 mg/dL (7.8-10.44); Carbon Dioxide 22 mmol/L (23-31); Chloride 109 mmol/L (98-107); Estimated GFR-MDRD Greater than 90; Glucose 107 mg/dL (83-110); Magnesium 1.9 mg/dL (1.6-2.6); Potassium 3.5 mmol/L (3.5-5.1); Sodium 141 mmol/L (136-145)
[2019-04-09 06:22] LABS: #Lymphocytes 1.2 thou/uL (1.20-3.40); #Monocytes 1.3 thou/uL (0.11-0.59); #Neutrophils 8.1 thou/uL (1.40-6.50); %Basophils 0.2 % (0.0-1.0); %Eosinophils 0.3 % (0.0-10.0); %Lymphocytes 11.3 % (21.0-51.0); %Monocytes 12.5 % (0.0-10.0); %Neutrophils 75.7 % (42.0-75.0); Anisocytosis SLIGHT = 6-15 cells (100X) (0-5/hpf); Hemoglobin 9.9 g/dL (14.0-18.0); MDiff Complete? YES; Mean Corpuscular HGB CONC 31.5 g/dL (32.0-36.0); Mean Corpuscular Hemoglobin 33.1 pg (27.0-31.0); Mean Platelet Volume 8.2 fL (7.4-10.4); Platelet Count 171 thou/uL (130-400); RBC Distribution Width 15.8 % (11.5-14.5); Red Blood Cell (RBC) Count 2.98 mill/uL (4.70-6.10); White Blood Cell (WBC) Count 10.6 thou/uL (4.8-10.8)
[2019-04-09] MEDS: Losartan 25 MG TAB PO SCH ×2 (08:53→20:55)
[2019-04-09] MEDS: Apixaban 2.5 MG TAB PO SCH ×2 (08:53→20:56)
[2019-04-09] MEDS: Nebivolol HCl 5 MG TAB PO SCH (08:53)
[2019-04-09] MEDS: Baclofen 10 MG TAB PO SCH ×3 (08:53→16:49)
[2019-04-09] MEDS: Saccharomyces boulardii 250 MG CAP PO SCH (08:54)
[2019-04-09] MEDS ORDERED: hydrALAZINE 20 MG/ML VIAL SLOW IVP PRN (12:52)
[2019-04-09] MEDS ORDERED: NIFEdipine XL 30 MG TAB PO SCH (13:00)
[2019-04-09] MEDS ORDERED: Lorazepam 0.5 MG TAB PO PRN (13:09)
--- NOTE | 2019-04-09 17:27 | PRG ---
DATE OF SERVICE: 04/09/2019 CHIEF COMPLAINT: Altered mental status. SUBJECTIVE: The patient reports that overall he is feeling much improved over the last 48 hours. He denies dysuria, suprapubic pain, flank pain, nausea, vomiting, fevers, or chills. He does still feel that he requires the nasal cannula as when he does not have the oxygen he feels his heart begins racing and he becomes very anxious. OBJECTIVE: VITAL SIGNS: Afebrile, hypertensive, heart rate stable. GENERAL: He is in no acute distress, conversant. LUNGS: Unlabored breathing with nasal cannula in place. ABDOMEN: Soft. : No suprapubic tenderness. No flank tenderness. Batista catheter has been exchanged and is draining clear urine with StatLock in good position, over 3 L of urine output yesterday. LABORATORY DATA: Lab work this morning shows white count 10. Creatinine 0.74. Urine culture has grown E. coli. ASSESSMENT AND PLAN: Sepsis secondary to urinary tract infection. Blood and urine cultures have grown Escherichia coli. He has been transitioned to ceftriaxone based on his culture. He will require treatment for 2 weeks at least. I will leave final determination on length of treatment for the bacteremia to the infectious disease physician. We will exchange his catheter in 1 month, and we will consider prophylaxis at that point. I will sign off on his care at this point. If I may be of further assistance, please call me any time. Job ID: [id number]
--- NOTE | 2019-04-09 19:50 | PDOC.HOSPP ---
- Subjective Encounter Date: 04/09/19 Encounter Time: 14:00 Subjective: Patient seen and examined for Sepsis. Intermittent confusion. No new complaints. No overnight events - Objective Vital Signs & Weight: Vital Signs (12 hours) Temp Pulse Pulse Pulse Resp BP BP 04/09/19 19:38 97.9 F 76 19 04/09/19 16:06 98.1 F 78 20 04/09/19 15:28 91 77 171/96 H 04/09/19 13:46 75 203/100 H 04/09/19 12:22 97.5 F L 70 18 BP BP BP Pulse Ox 04/09/19 19:38 167/91 H 95 04/09/19 16:06 171/96 H 100 04/09/19 15:28 169/85 H 04/09/19 13:46 04/09/19 12:22 178/111 H 99 Weight Weight 198 lb 7 oz I&O: 04/08/19 04/09/19 04/10/19 06:59 06:59 06:59 Intake Total 1450 525 720 Output Total 3250 1700 850 Balance -1800 -1175 -130 Result Diagrams: 04/09/19 04:53 04/09/19 04:53 EKG Reviewed by me: Yes (Tele paced) Hospitalist ROS - Review of Systems Cardiovascular: denies: chest pain, palpitations, orthopnea, paroxysmal noc. dyspnea, edema, light headedness, other Gastrointestinal: denies: nausea, vomiting, abdominal pain, diarrhea, constipation, melena, hematochezia, other - Medication Medications: Active Medications Generic Name Dose Route Start Last Admin Trade Name Freq PRN Reason Stop Dose Admin Apixaban 2.5 mg 04/07/19 21:00 04/09/19 08:53 Eliquis PO 2.5 mg BID RAPHAEL Administration Baclofen 10 mg 04/07/19 12:00 04/09/19 16:49 Lioresal PO 10 mg TID-WM RAPHAEL Administration Ceftriaxone Sodium 2 gm/ 100 mls @ 200 mls/hr 04/08/19 21:30 04/08/19 23:41 Sodium Chloride IVPB 100 mls 2130 RAPHAEL Administration Labetalol HCl 10 mg 04/07/19 11:12 04/08/19 17:57 Normodyne SLOW IVP 10 mg Q4H PRN Administration Systolic BP > 180 Losartan Potassium 50 mg 04/09/19 09:00 04/09/19 08:53 Cozaar PO 50 mg BID RAPHAEL Administration Nebivolol 10 mg 04/08/19 09:00 04/09/19 08:53 Bystolic PO 10 mg DAILY RAPHAEL Administration Saccharomyces Guyi 250 mg 04/08/19 09:00 04/09/19 08:54 Florastor PO 250 mg DAILY RAPHAEL Administration Sodium Chloride 10 ml 04/06/19 22:29 04/09/19 08:54 Flush - Normal Saline IVF 10 ml PRN PRN Administration Saline Flush - Exam General Appearance: NAD Heart: RRR, no rubs Respiratory: no rales, no ronchi Gastrointestinal: soft, non-tender, normal bowel sounds Extremities: no edema Hosp A/P - Plan 1. Toxic Metabolic Encephalopathy (POA)/Severe sepsis, secondary to catheter- associated E coli urinary tract infection with bacteremia (POA) 2. Abnormal LFTs prob due to above 3. Metabolic acidosis/lactic acidosis. 4. Type 2 myocardial infarction. 5. Chronic macrocytic anemia. 6. Paroxysmal atrial fibrillation, on anticoagulation. 7. Coronary artery disease, status post stent placement. 8. Prostate cancer, stage IV on chemotherapy. 9. Chronic indwelling Batista catheter. 10. Chronic hyponatremia, on sodium chloride tablet. 11. Hypertension. uncontrolled 12. Chronic hiccups, on baclofen. PLAN: 04/09 Cont IV Ceftriaxone Cont Losartan 50 mg BID Add Procardia XL due to uncontrolled HTN Cont other meds DC in 24 hr if BP controlled. 04/08 Change IV Zosyn to Ceftriaxone Increase Losartan dose SNF Eval Cont other meds PT/OT Cont Eliquis Cont other meds as above
[2019-04-09] MEDS: cefTRIAXone\\ROCEPHIN 2 GM in Sodium Chloride 0.9% 100 ML IVPB SCH (20:56)
[2019-04-10] MEDS: Losartan 25 MG TAB PO SCH (08:32)
[2019-04-10] MEDS: Baclofen 10 MG TAB PO SCH ×2 (08:32→11:30)
[2019-04-10] MEDS: Nebivolol HCl 5 MG TAB PO SCH (08:33)
[2019-04-10] MEDS: Saccharomyces boulardii 250 MG CAP PO SCH (08:33)
[2019-04-10] MEDS: Apixaban 2.5 MG TAB PO SCH (08:33)
[2019-04-10] MEDS ORDERED: NIFEdipine XL 30 MG TAB PO SCH (12:00)
[2019-04-10 12:12] VITALS: BP 132/82; TEMP 98
--- NOTE | 2019-04-11 08:24 | DIS ---
DATE OF ADMISSION: 04/06/2019 DATE OF DISCHARGE: 04/10/2019 DISCHARGE DISPOSITION: The patient lives at [facility]. Home Health Care will be resumed. HOSPITAL COURSE: The patient was seen and examined on the day of discharge. Denies any new complaints. No chest pain, shortness of breath, or palpitations reported. INPATIENT CONSULTANTS: 1. Infectious Disease, Dr. Lopez. 2. Urology, Dr. Cordero. DISCHARGE MEDICATIONS: 1. Bactrim Double Strength one tablet twice daily for next 10 days. 2. Losartan 50 mg daily. 3. Florastor 250 mg daily. 4. All other home medications were left unchanged. BRIEF HOSPITAL COURSE: The patient is an 84-year-old male with chronic indwelling Batista catheter and small cell carcinoma of the prostate, stage IV, presented to the hospital with altered mentation. He was confused and pulling the Batista catheter. No fever was reported. In the emergency room, his temperature was 101.3. He was monitored on the telemetry unit. His workup was consistent with E coli UTI along with 2/2 blood cultures positive for E coli. He was placed on IV vancomycin and Zosyn initially that was transitioned to IV ceftriaxone. I discussed with Dr. Lopez, who recommended changing to Bactrim. He was also evaluated by Urology and his Batista catheter was changed. He has been cleared by consultants for discharge. His mentation has significantly improved. He had issues with blood pressure for which losartan has been restarted. PLAN: Plan of care was discussed with the patient's son in detail over the phone. FINAL DIAGNOSES: 1. Toxic metabolic encephalopathy with severe sepsis secondary to catheter associated urinary tract infection as well as Escherichia coli bacteremia, present on admission. 2. Type 2 myocardial infarction, on admission, resolved. 3. Abnormal LFTs secondary to sepsis. 4. Metabolic acidosis/lactic acidosis, on admission, resolved. 5. Chronic macrocytic anemia with normal vitamin B12 and folic acid. 6. Paroxysmal atrial fibrillation, on anticoagulation. 7. Coronary artery disease, status post stent placement. 8. Stage IV prostate cancer. 9. Chronic indwelling Batista catheter. 10. Chronic hyponatremia. His sodium chloride tablets were discontinued. His sodium has been normal during this hospital stay without sodium chloride tablets. A repeat blood work next week is recommended. Primary care physician advised to follow. He also had significant edema in bilateral lower extremity that has resolved after discontinuation of sodium chloride tablets. 11. Hypertension. 12. Chronic hiccups, on baclofen. 13. Chronic kidney disease, stage 2. 14. Thrombocytopenia, resolved. TIME SPENT: Total time coordinating the discharge of this patient was 34 minutes. Job ID: [id number]
== END 2019-04-10 13:07 | disposition home health service (06) | DRG 698 ==
LOC: ERS 11:12 → ERHOLD 15:20 → 2NO 04-07 13:33
PROVIDERS: ADMIT Internal Medicine; ATTEND Internal Medicine
DX: T83.511A Infection and inflammatory reaction due to indwelling urethral catheter, initial encounter (principal); R65.20 Severe sepsis without septic shock; A41.51 Sepsis due to Escherichia coli [E. coli]; G92 Toxic encephalopathy; I21.A1 Myocardial infarction type 2; E87.1 Hypo-osmolality and hyponatremia; E87.2 Acidosis; N39.0 Urinary tract infection, site not specified; C61 Malignant neoplasm of prostate; I10 Essential (primary) hypertension; R06.6 Hiccough; D53.9 Nutritional anemia, unspecified; I48.0 Paroxysmal atrial fibrillation; I25.10 Atherosclerotic heart disease of native coronary artery without angina pectoris; Z88.8 Allergy status to other drugs, medicaments and biological substances; Z79.01 Long term (current) use of anticoagulants; Z79.899 Other long term (current) drug therapy; Z95.5 Presence of coronary angioplasty implant and graft; Z95.0 Presence of cardiac pacemaker
CPT/HCPCS: 36415; 70450; 71045; 76705; 80048; 80053; 81003; 81015; 82550; 82553; 82607; 82746; 83605; 83690; 83735; 83880; 84100; 84484; 85025; 87040; 87077; 87086; 87149; 87186; 87804; 93005; 96365; 96366; 96367; J0360; J0696; J1940; J2543; J3490

== ENCOUNTER 2019-05-20 12:08 | Inpatient (IN) | payer MEDICARE ==
--- NOTE | 2019-05-20 12:50 | RAD ---
EXAM: Single view of the chest HISTORY: Found unconscious in the bathroom COMPARISON: 04/06/2019 FINDINGS: Single view of the chest shows an enlarged but stable cardiomediastinal silhouette. The pa tient is status post sternotomy. The pacemaker is unchanged in position. A cardiac monitoring device projects over the left chest wall. There is no evidence of consolidation, mass, or pleural ef fusion. The bones are unremarkable. IMPRESSION: Cardiomegaly
[2019-05-20 12:57] LABS: Bilirubin Negative (Negative); Blood, Urine Negative (Negative); Clarity Clear (Clear); Glucose, Urine (Dipstick) Normal (Negative); Leukocyte 75 Leu/uL (Negative); Nitrite 1+ (Negative); Protein, Urine (Dipstick) Negative (Neg-Trace); RBC/HPF 0-3 HPF (0-3); Squamous Epithelial 0-3 HPF (0-3); Urobilinogen Normal mg/dL (Less than 2)
[2019-05-20 13:07] LABS: Bacteria/HPF 1+ HPF (None Seen)
[2019-05-20 13:42] LABS: ALT (SGPT) 53 U/L (8-55); AST (SGOT) 35 U/L (5-34); Albumin 4.1 g/dL (3.4-4.8); Alkaline Phosphatase 97 U/L (40-110); Anion Gap 13 mmol/L (10-20); BUN (Urea Nitrogen) 23 mg/dL (8.4-25.7); Bilirubin, Total 0.7 mg/dL (0.2-1.2); Calc. Creatinine Clearance 0 mL/min (70-130); Calcium 8.9 mg/dL (7.8-10.44); Carbon Dioxide 36 mmol/L (23-31); Chloride 97 mmol/L (98-107); Estimated GFR-MDRD 78; Globulin 2.8 g/dL (2.4-3.5); Glucose 101 mg/dL (83-110); Lipase 14 U/L (8-78); Potassium 3.2 mmol/L (3.5-5.1); Protein, Total 6.9 g/dL (5.8-8.1); Sodium 143 mmol/L (136-145)
[2019-05-20 13:47] LABS: Hemoglobin 12.7 g/dL (14.0-18.0); Mean Corpuscular HGB CONC 30.3 g/dL (32.0-36.0); Mean Corpuscular Hemoglobin 30.6 pg (27.0-31.0); Mean Platelet Volume 8.4 fL (7.4-10.4); Platelet Count 145 thou/uL (130-400); RBC Distribution Width 14.6 % (11.5-14.5); Red Blood Cell (RBC) Count 4.15 mill/uL (4.70-6.10); White Blood Cell (WBC) Count 23.8 thou/uL (4.8-10.8)
[2019-05-20 14:01] LABS: Band 2 % (5-11); Hypochromia SLIGHT = 6-15 cells (100X) (0-5/hpf); Lymphocytes 25 % (21-51); MDiff Complete? YES; Macrocytosis SLIGHT = 6-15 cells (100X) (0-5/hpf); Monocytes 4 % (0-10); Neutrophil 69 % (42-75); Platelet Morphology Comment Appears Adequate; Polychromasia SLIGHT = 2-3 cells (100X) (0-2/hpf); Schistocytes SLIGHT = 2-5 cells (100X) (0-1/hpf); Target Cells SLIGHT = 2-5 cells (100X) (0-1/hpf); Tear Drops SLIGHT = 2-5 cells (100X) (0-1/hpf)
[2019-05-20 14:04] LABS: CKMB 5.7 ng/mL (0-6.6)
[2019-05-20] MEDS ORDERED: Labetalol HCl 100 MG/20 ML VIAL ONE (14:09)
--- NOTE | 2019-05-20 14:21 | CT ---
Head CT without contrast 05/20/2019: COMPARISON: 04/06/2019 HISTORY: Altered mental status TECHNIQUE: Axial CT imaging at 5 mm intervals from vertex through skull base without contrast FINDINGS: Imaged paranasal sinuses and mastoid air cells well-aerated. Stable periventricular, deep, and subcortical white matter hypodensity, evidence of small vessel dise ase. No intracranial hemorrhage, midline shift, or mass effect. IMPRESSION: Chronic findings as detailed above. Stable head CT.
[2019-05-20] MEDS ORDERED: hydrALAZINE 20 MG/ML VIAL ONE (15:44)
[2019-05-20 16:43] LABS: Troponin I 0.046 ng/mL (< 0.028)
[2019-05-20] MEDS ORDERED: Acetaminophen 325 MG TAB PO PRN (16:43)
[2019-05-20] MEDS ORDERED: Ondansetron PF 4 MG/2 ML Vial IVP PRN (16:43)
--- NOTE | 2019-05-20 16:56 | PDOC.HHP ---
Hospitalist HPI - History of Present Illness AMS/ Syncope History of Present Illness: 84 YO m with a PMH of Afib s/p ablation, Prostate CA, HTN who was admitted with AMS/Syncope. Pt is unable to provide a lot of information due to his AMS episode. Pt stated he was in his usual state of health last night and this morning and had no complaints. It is stated however he was found unconscious in the bathroom this morning. Pt is unsure how he got there. he states he had an episode of AMS last year but was not sure of the diagnosis. EMS was called this morning by a outreach manager, and pt was brought to the ER, at which time he had become AOOx3 . Upon presentation to the ER, CT brain and CXR were neg, he was noted with elevated troponin and BNP. he has denied prior hx of CHF. He will be admitted for further evaluation and mgt. Hospitalist ROS - Review of Systems Constitutional: denies: fever, chills, sweats, weakness, malaise, other Eyes: denies: pain, vision change, conjunctivae inflammation, eyelid inflammation, redness, other ENT: denies: ear pain, ear discharge, nose pain, nose discharge, nose congestion , mouth pain, mouth swelling, throat pain, throat swelling, other Respiratory: denies: cough, dry, shortness of breath, hemoptysis, SOB with excertion, pleuritic pain, sputum, wheezing, other Cardiovascular: denies: chest pain, palpitations, orthopnea, paroxysmal noc. dyspnea, edema, light headedness, other Gastrointestinal: denies: nausea, vomiting, abdominal pain, diarrhea, constipation, melena, hematochezia, other Genitourinary: denies: dysuria, frequency, incontinence, hematuria, retention, other Musculoskeletal: denies: neck pain, shoulder pain, arm pain, back pain, hand pain, leg pain, foot pain, other Skin: denies: rash, lesions, gabi, bruising, other Neurological: denies: weakness, numbness, incoordination, change in speech, confusion, seizures, other Hospitalist History - Past Medical History Cardiac: reports: AFIB, HTN Heme/Onc: reports: Cancer (Prostate) - Past Surgical History Past Surgical History: reports: Other (Ablation) - Family History Family History: reports: hypertension - Social History Smoking Status: Smoker, status unknown Alcohol: reports: None Living Situation: With Family Activity level: independent ambulation - Exam General Appearance: NAD, awake alert Eye: PERRL, anicteric sclera ENT: normocephalic atraumatic, moist mucosa Neck: supple, symmetric, no JVD, no thyromegaly, no lymphadenopathy Heart: RRR, no murmur, no gallops, no rubs, normal peripheral pulses Respiratory: CTAB, no wheezes, no rales, no ronchi, normal chest expansion Gastrointestinal: soft, non-tender, non-distended, normal bowel sounds Extremities: no cyanosis, no clubbing, no edema Skin: no lesions, no rashes Neurological: cranial nerve grossly intact, no focal deficits Musculoskeletal: normal strength, no muscle wasting Psychiatric: normal affect, normal behavior, A&O x 3 Hospitalist Results - Labs Result Diagrams: 05/20/19 13:02 05/20/19 13:02 Lab results: WBC 23.8 thou/uL (4.8-10.8) H 05/20/19 13:02 Hgb 12.7 g/dL (14.0-18.0) L 05/20/19 13:02 Hct 41.9 % (42.0-52.0) L 05/20/19 13:02 MCV 101.0 fL (78.0-98.0) H 05/20/19 13:02 Plt Count 145 thou/uL (130-400) 05/20/19 13:02 Band Neuts % (Manual) 2 % (5-11) L 05/20/19 13:02 Sodium 143 mmol/L (136-145) 05/20/19 13:02 Potassium 3.2 mmol/L (3.5-5.1) L 05/20/19 13:02 Chloride 97 mmol/L (98-107) L 05/20/19 13:02 Carbon Dioxide 36 mmol/L (23-31) H 05/20/19 13:02 BUN 23 mg/dL (8.4-25.7) 05/20/19 13:02 Creatinine 0.93 mg/dL (0.7-1.3) 05/20/19 13:02 Glucose 101 mg/dL (83-110) 05/20/19 13:02 Calcium 8.9 mg/dL (7.8-10.44) 05/20/19 13:02 Total Bilirubin 0.7 mg/dL (0.2-1.2) 05/20/19 13:02 AST 35 U/L (5-34) H 05/20/19 13:02 ALT 53 U/L (8-55) 05/20/19 13:02 Alkaline Phosphatase 97 U/L (40-110) 05/20/19 13:02 CK-MB (CK-2) 5.7 ng/mL (0-6.6) 05/20/19 13:02 Troponin I 0.046 ng/mL (< 0.028) H 05/20/19 16:08 B-Natriuretic Peptide 1302.5 pg/mL (0-100) H 05/20/19 13:02 Serum Total Protein 6.9 g/dL (5.8-8.1) 05/20/19 13:02 Albumin 4.1 g/dL (3.4-4.8) 05/20/19 13:02 Lipase 14 U/L (8-78) 05/20/19 13:02 Urine Ketones Negative mg/dL (Negative) 05/20/19 12:15 Urine Blood Negative (Negative) 05/20/19 12:15 Urine Nitrite 1+ (Negative) A 05/20/19 12:15 Ur Leukocyte Esterase 75 Eduin/uL (Negative) A 05/20/19 12:15 Urine RBC 0-3 HPF (0-3) 05/20/19 12:15 Urine WBC 7-10 HPF (0-3) A 05/20/19 12:15 Ur Squamous Epith Cells 0-3 HPF (0-3) 05/20/19 12:15 Urine Bacteria 1+ HPF (None Seen) A 05/20/19 12:15 Hospitalist H&P A/P - Problem (1) Syncope Code(s): R55 - SYNCOPE AND COLLAPSE Status: Acute Qualifiers: Encounter type: initial encounter Assessment and Plan: Unclear etiology. Ct brain is neg. Will consult cardiology, order Echo, CTA chest to r/o PE and monitor on telemetry. Will f/u with cardiac recs. (2) Leucocytosis Code(s): D72.829 - ELEVATED WHITE BLOOD CELL COUNT, UNSPECIFIED Status: Acute Assessment and Plan: Unclear etiology. May be due to UTI. Will get bld and urine cx . Start Rocephin for now, f/u with final Cx results. (3) Hypokalemia Code(s): E87.6 - HYPOKALEMIA Status: Acute Assessment and Plan: Will replace. Monitor K. (4) Prostate CA Code(s): C61 - MALIGNANT NEOPLASM OF PROSTATE Status: Chronic Assessment and Plan: No acute issues at this time. (5) Malignant poorly differentiated neuroendocrine carcinoma Code(s): C7A.1 - MALIGNANT POORLY DIFFERENTIATED NEUROENDOCRINE TUMORS Status : Acute Assessment and Plan: No acute issues at this time. (6) CHF (congestive heart failure) Code(s): I50.9 - HEART FAILURE, UNSPECIFIED Status: Acute Qualifiers: Heart failure type: unspecified Heart failure chronicity: acute Qualified Code(s): I50.9 - Heart failure, unspecified Assessment and Plan: Pt denies prior hx of CHF. BNP is elevated. Will order Echo, consult cardiac cardiology, [id number] Lasix, BB and ACEI. Monitor for symp improvement. (7) HTN (hypertension), malignant Code(s): I10 - ESSENTIAL (PRIMARY) HYPERTENSION Status: Acute Assessment and Plan: BP is very elevated. Will resume home BP meds, including BB and ACEI, cover with IV Hydralazine. (8) Elevated troponin Code(s): R79.89 - OTHER SPECIFIED ABNORMAL FINDINGS OF BLOOD CHEMISTRY Status : Acute Assessment and Plan: Unclear etiology. Will trend troponins. Cont ASA, BB and ACEI. - Plan Plan: PPX: PPI. CODE: FULL. Dispo: Admit as inpt. F/u with cardiac consult.
[2019-05-20 18:23] VITALS: BMI 27.3
[2019-05-20] MEDS ORDERED: Potassium Chloride 20 MEQ TAB PO SCH (19:15)
[2019-05-20] MEDS ORDERED: Spironolactone 25 MG TAB PO SCH (19:15)
[2019-05-20 19:46] LABS: Troponin I 0.053 ng/mL (< 0.028)
[2019-05-20] MEDS ORDERED: cefTRIAXone\\ROCEPHIN 1 GM in Sodium Chloride 0.9% 100 ML IVPB SCH (20:00)
--- NOTE | 2019-05-20 20:33 | CON ---
DATE OF CONSULTATION: HISTORY OF PRESENT ILLNESS: This is an 84-year-old gentleman with a history of hypertension, status post pacemaker placement, who presented with weakness and apparently lost consciousness. The patient has a history of atrial fibrillation and he is on chronic anticoagulation therapy. The patient has had [id number] hypertension. The patient is undergoing chemotherapy for prostate carcinoma. The patient presented after he suddenly got weak,and he apparently had lost consciousness. He denied having any chest discomfort. The patient reports recently increasing lower extremity swelling and mild dyspnea. He denies having any PND or orthopnea. PAST MEDICAL HISTORY: 1. Atrial fibrillation. 2. Hypertension. 3. Dyslipidemia. 4. Prostate carcinoma. 5. History of pacemaker placement. PAST SURGICAL HISTORY: TURP FAMILY HISTORY: No strong family history of heart disease. SOCIAL HISTORY: Nonsmoker. ALLERGIES: NO KNOWN DRUG ALLERGIES. REVIEW OF SYSTEMS: Ten-point system otherwise unremarkable. PHYSICAL EXAMINATION: GENERAL: Obese gentleman, in no acute distress. VITAL SIGNS: Blood pressure 162/90. NECK: Showed no jugular venous distention. LUNGS: Clear to auscultation. HEART: Regular rate and rhythm. Normal S1 and S2, 2/6 systolic murmur. ABDOMEN: Nondistended. EXTREMITIES: Showed moderate bilateral edema. Vascular radial pulses are 2+. LABORATORY RESULTS: White blood count 23.8, hemoglobin 12.7, hematocrit 41.9, platelets 145. Sodium was 143, potassium 3.2, chloride 97, bicarbonate 36, BUN 23, creatinine 0.93. Troponin 0.056. BNP 1302. EKG revealed electronic ventricular pacemaker. Chest x-ray revealed cardiomegaly with no pulmonary congestion. IMPRESSION AND PLAN: 1. New onset congestive heart failure. 2. History of atrial fibrillation. 3. History of pacemaker placement. 4. Poorly controlled hypertension. This gentleman presents with new onset congestive heart failure. We will check the patient's echocardiogram. The patient will be switched to Entresto and Coreg. The patient is being diuresed with Lasix. We will add spironolactone. We will follow this patient with you through his hospitalization. Job ID: [id number] MTDD
[2019-05-20] MEDS ORDERED: Tamsulosin HCl 0.4 MG CAP PO SCH (21:00)
[2019-05-20] MEDS ORDERED: Apixaban 2.5 MG TAB PO SCH (21:00)
[2019-05-20] MEDS ORDERED: Ondansetron ODT 4 MG TAB PO PRN (21:13)
[2019-05-20] MEDS ORDERED: Prochlorperazine Maleate 5 MG TAB PO PRN (21:13)
[2019-05-20] MEDS: Furosemide 40 MG/4 ML VIAL SLOW IVP SCH ×2 (21:39)
[2019-05-20] MEDS: Famotidine 20 MG TAB PO SCH (21:40)
[2019-05-20] MEDS: Tamsulosin HCl 0.4 MG CAP PO SCH (21:40)
[2019-05-20] MEDS: Apixaban 5 MG TAB PO SCH (21:40)
[2019-05-21 05:22] LABS: Band 4 % (5-11); Hemoglobin 11.9 g/dL (14.0-18.0); Lymphocytes 19 % (21-51); MDiff Complete? YES; Macrocytosis SLIGHT = 6-15 cells (100X) (0-5/hpf); Mean Corpuscular HGB CONC 30.7 g/dL (32.0-36.0); Mean Corpuscular Hemoglobin 31.6 pg (27.0-31.0); Mean Platelet Volume 7.9 fL (7.4-10.4); Monocytes 5 % (0-10); Neutrophil 72 % (42-75); Platelet Count 138 thou/uL (130-400); Platelet Morphology Comment Appears Adequate; RBC Distribution Width 14.7 % (11.5-14.5); Red Blood Cell (RBC) Count 3.77 mill/uL (4.70-6.10); Tear Drops SLIGHT = 2-5 cells (100X) (0-1/hpf); White Blood Cell (WBC) Count 16.3 thou/uL (4.8-10.8)
[2019-05-21 05:24] LABS: BUN (Urea Nitrogen) 19 mg/dL (8.4-25.7); Calc. Creatinine Clearance 82 mL/min (70-130); Calcium 8.9 mg/dL (7.8-10.44); Estimated GFR-MDRD 90; Glucose 107 mg/dL (83-110); Magnesium 2.2 mg/dL (1.6-2.6)
[2019-05-21] MEDS: hydrALAZINE 20 MG/ML VIAL SLOW IVP PRN ×2 (05:32→11:34)
[2019-05-21 05:33] LABS: Anion Gap 16 mmol/L (10-20); Carbon Dioxide 34 mmol/L (23-31); Chloride 99 mmol/L (98-107); Sodium 146 mmol/L (136-145)
[2019-05-21 05:36] LABS: Potassium 2.9 mmol/L (3.5-5.1)
[2019-05-21] MEDS: Spironolactone 25 MG TAB PO SCH (06:43)
[2019-05-21] MEDS: Potassium Chloride 20 MEQ TAB PO SCH ×3 (06:44→17:58)
[2019-05-21] MEDS: Furosemide 40 MG/4 ML VIAL SLOW IVP SCH ×2 (06:53→15:21)
[2019-05-21] MEDS: Saccharomyces boulardii 250 MG CAP PO SCH (07:28)
[2019-05-21] MEDS: Aspirin Chewable 81 MG TAB PO SCH (07:28)
[2019-05-21] MEDS: cloNIDine 0.1 MG TAB PO SCH ×2 (07:28→20:31)
[2019-05-21] MEDS: Famotidine 20 MG TAB PO SCH ×2 (07:28→20:31)
[2019-05-21] MEDS: Apixaban 5 MG TAB PO SCH ×2 (07:29→20:31)
[2019-05-21] MEDS ORDERED: Baclofen 10 MG TAB PO SCH (08:00)
[2019-05-21] MEDS ORDERED: Carvedilol 3.125 MG TAB PO SCH (08:00)
[2019-05-21] MEDS ORDERED: Losartan 25 MG TAB PO SCH (09:00)
[2019-05-21] MEDS ORDERED: Furosemide 20 MG TAB PO SCH (09:00)
[2019-05-21] MEDS ORDERED: Enoxaparin Sodium 40 MG/0.4 ML SYRINGE SC SCH (09:00)
[2019-05-21] MEDS ORDERED: Nebivolol HCl 5 MG TAB PO SCH ×3 (09:00→09:45)
[2019-05-21] MEDS ORDERED: Valsartan 80 MG TAB PO SCH ×2 (09:30→09:45)
--- NOTE | 2019-05-21 13:50 | PDOC.HOSPP ---
- Subjective Encounter Date: 05/21/19 Encounter Time: 13:45 Subjective: f/u for diastolic CHF on currently on IV Lasix with EF 55-60%. Receiving Rocephin for UTI. - Objective Vital Signs & Weight: Vital Signs (12 hours) Temp Pulse Pulse Pulse Resp BP BP 05/21/19 12:22 70 05/21/19 11:34 71 05/21/19 11:25 98.4 F 72 18 05/21/19 10:51 72 80 183/85 H 05/21/19 07:29 97.6 F 71 20 05/21/19 06:18 75 180/93 H 05/21/19 05:53 75 05/21/19 05:32 75 180/86 H 05/21/19 05:03 98.3 F 77 18 BP BP Pulse Ox Pulse Ox Pulse Ox 05/21/19 12:22 143/70 H 05/21/19 11:34 05/21/19 11:25 202/105 H 98 05/21/19 10:51 180/107 H 94 L 97 05/21/19 07:29 185/95 H 94 L 05/21/19 06:18 05/21/19 05:53 182/93 H 05/21/19 05:32 05/21/19 05:03 192/95 H 94 L Weight Weight 184 lb 9.6 oz I&O: 05/20/19 05/21/19 05/22/19 06:59 06:59 06:59 Intake Total 240 Output Total 3100 375 Balance -2860 -375 Result Diagrams: 05/21/19 04:49 05/21/19 04:49 Additional Labs: Microbiology 05/20/19 12:15 Urine clean catch Urine Culture - Preliminary Presumptive Kleb/Enterobacter Laboratory Tests 05/20/19 05/20/19 05/20/19 13:02 13:02 13:02 WBC 23.8 H Hgb 12.7 L Plt Count 145 Neutrophils % (Manual) 69 Sodium 143 Potassium 3.2 L Creatinine 0.93 Estimated GFR (MDRD) 78 Troponin I 0.056 H TSH 3rd Generation 05/20/19 05/20/19 05/21/19 16:08 19:09 04:49 WBC Hgb Plt Count Neutrophils % (Manual) Sodium Potassium Creatinine Estimated GFR (MDRD) Troponin I 0.046 H 0.053 H TSH 3rd Generation 0.2345 L Radiology Reviewed by me: Yes (Echo - EF 55-60%, mod MR, mod-severe TR) EKG Reviewed by me: Yes (Tele - V-paced) Hospitalist ROS - Medication Medications: Active Medications Generic Name Dose Route Start Last Admin Trade Name Freq PRN Reason Stop Dose Admin Apixaban 5 mg 05/20/19 21:00 05/21/19 07:29 Eliquis PO 5 mg BID RAPHAEL Administration Aspirin 81 mg 05/21/19 09:00 05/21/19 07:28 Aspirin Chewable PO 81 mg DAILY RAPHAEL Administration Clonidine 0.1 mg 05/21/19 09:00 05/21/19 07:28 Catapres PO 0.1 mg BID RAPHAEL Administration Famotidine 20 mg 05/20/19 21:00 05/21/19 07:28 Pepcid PO 20 mg BID RAPHAEL Administration Furosemide 40 mg 05/20/19 06:00 05/21/19 06:53 Lasix SLOW IVP 40 mg 0600,1400 RAPHAEL Administration Furosemide 20 mg 05/21/19 09:00 05/21/19 07:29 Lasix PO Not Given QAM RAPHAEL Hydralazine HCl 10 mg 05/20/19 17:13 05/21/19 11:34 Apresoline SLOW IVP 10 mg Q4H PRN Administration TO KEEP BP <140/90mmhg Ceftriaxone Sodium 1 gm/ 100 mls @ 200 mls/hr 05/20/19 20:00 05/20/19 21:56 Sodium Chloride IVPB 100 mls Q24HR RAPHAEL Administration Saccharomyces Boulardii 250 mg 05/21/19 09:00 05/21/19 07:28 Florastor PO 250 mg DAILY RAPHAEL Administration Sodium Chloride 10 ml 05/21/19 09:00 05/21/19 07:29 Flush - Normal Saline IVF 10 ml Q12HR RAPHAEL Administration Spironolactone 25 mg 05/21/19 09:00 05/21/19 06:43 Aldactone PO 25 mg QAM RAPHAEL Administration Tamsulosin HCl 0.4 mg 05/20/19 21:00 05/20/19 21:40 Flomax PO 0.4 mg HS RAPHAEL Administration - Exam General Appearance: NAD, awake alert Eye: PERRL, anicteric sclera ENT: normocephalic atraumatic, no oropharyngeal lesions Neck: supple, symmetric, no JVD, no thyromegaly Respiratory: CTAB, no rales, no ronchi, normal chest expansion Gastrointestinal: soft, non-tender, non-distended, normal bowel sounds, no palpable masses Extremities: no cyanosis, no clubbing, 1+ LE edema Skin: normal turgor, no lesions Neurological: cranial nerve grossly intact, no new deficit Musculoskeletal: generalized weakness Psychiatric: A&O x 3 Hosp A/P (1) Acute on chronic diastolic (congestive) heart failure Code(s): I50.33 - ACUTE ON CHRONIC DIASTOLIC (CONGESTIVE) HEART FAILURE Status : Acute Plan: EF 55-60%, Diastolic dysfunction, continue Lasix, monitor I/O's, daily weight (2) UTI (urinary tract infection) Status: Acute Plan: Suspected E. coli, continue Rocephin IV daily, follow Ucx results (3) Elevated troponin Code(s): R79.89 - OTHER SPECIFIED ABNORMAL FINDINGS OF BLOOD CHEMISTRY Status : Acute Plan: Likely demand ischemia, continue ASA (4) Hypokalemia Code(s): E87.6 - HYPOKALEMIA Status: Acute Plan: KCL supplementation, serial K+ monitoring (5) Chronic anemia Code(s): D64.9 - ANEMIA, UNSPECIFIED Status: Chronic Plan: Macrocytic indices, B12/Folate normal in 04/17, no evidence of acute blood loss (6) Malignant poorly differentiated neuroendocrine carcinoma Code(s): C7A.1 - MALIGNANT POORLY DIFFERENTIATED NEUROENDOCRINE TUMORS Status : Acute Plan: Receiving current Chemotx - Plan old records reviewed/req, continue antibiotics, PT/OT, school social worker, out of bed/ambulate, DVT proph w/SCDs Stable currently Continue Rocephin IV Continue Lasix IV PM interrogation pending Convert to inpt status AM lab: BMP, CBC
[2019-05-21] MEDS: cefTRIAXone\\ROCEPHIN 2 GM in Sodium Chloride 0.9% 100 ML IVPB SCH (15:22)
[2019-05-21] MEDS: Tamsulosin HCl 0.4 MG CAP PO SCH (20:31)
[2019-05-21] MEDS: Valsartan 80 MG TAB PO SCH (20:32)
[2019-05-22] MEDS: hydrALAZINE 20 MG/ML VIAL SLOW IVP PRN ×3 (00:18→16:33)
[2019-05-22 05:02] LABS: Anion Gap 14 mmol/L (10-20); BUN (Urea Nitrogen) 26 mg/dL (8.4-25.7); Calc. Creatinine Clearance 69 mL/min (70-130); Calcium 9.3 mg/dL (7.8-10.44); Carbon Dioxide 36 mmol/L (23-31); Chloride 96 mmol/L (98-107); Estimated GFR-MDRD 73; Glucose 127 mg/dL (83-110); Potassium 3.4 mmol/L (3.5-5.1); Sodium 143 mmol/L (136-145)
[2019-05-22] MEDS: Furosemide 40 MG/4 ML VIAL SLOW IVP SCH ×2 (05:46→13:53)
[2019-05-22 05:58] LABS: Band 5 % (5-11); Hemoglobin 12.5 g/dL (14.0-18.0); Lymphocytes 23 % (21-51); MDiff Complete? YES; Mean Corpuscular HGB CONC 33.7 g/dL (32.0-36.0); Mean Corpuscular Hemoglobin 33.8 pg (27.0-31.0); Mean Platelet Volume 8.2 fL (7.4-10.4); Monocytes 1 % (0-10); Neutrophil 71 % (42-75); Platelet Count 126 thou/uL (130-400); RBC Distribution Width 14.7 % (11.5-14.5); Red Blood Cell (RBC) Count 3.71 mill/uL (4.70-6.10); White Blood Cell (WBC) Count 19.7 thou/uL (4.8-10.8)
[2019-05-22] MEDS: Aspirin Chewable 81 MG TAB PO SCH (08:20)
[2019-05-22] MEDS: cloNIDine 0.1 MG TAB PO SCH ×2 (08:20→19:49)
[2019-05-22] MEDS: Potassium Chloride 20 MEQ TAB PO SCH ×2 (08:20→16:34)
[2019-05-22] MEDS: Apixaban 5 MG TAB PO SCH ×2 (08:20→19:49)
[2019-05-22] MEDS: Spironolactone 25 MG TAB PO SCH (08:21)
[2019-05-22] MEDS: Saccharomyces boulardii 250 MG CAP PO SCH (08:21)
[2019-05-22] MEDS: Nebivolol HCl 5 MG TAB PO SCH (08:22)
[2019-05-22] MEDS: Famotidine 20 MG TAB PO SCH ×2 (08:22→19:49)
[2019-05-22] MEDS: Valsartan 80 MG TAB PO SCH ×2 (08:22→19:48)
[2019-05-22] MEDS: cefTRIAXone\\ROCEPHIN 2 GM in Sodium Chloride 0.9% 100 ML IVPB SCH (14:30)
[2019-05-22] MEDS: Tamsulosin HCl 0.4 MG CAP PO SCH (19:49)
[2019-05-23] MEDS: hydrALAZINE 20 MG/ML VIAL SLOW IVP PRN (05:52)
[2019-05-23] MEDS: Furosemide 40 MG/4 ML VIAL SLOW IVP SCH (05:53)
[2019-05-23] MEDS: Valsartan 80 MG TAB PO SCH ×2 (09:26→18:08)
[2019-05-23] MEDS: Potassium Chloride 20 MEQ TAB PO SCH (09:26)
[2019-05-23] MEDS: cloNIDine 0.1 MG TAB PO SCH ×2 (09:26→18:07)
[2019-05-23] MEDS: Nebivolol HCl 5 MG TAB PO SCH (09:26)
[2019-05-23] MEDS: Famotidine 20 MG TAB PO SCH ×2 (09:26→18:08)
[2019-05-23] MEDS: Spironolactone 25 MG TAB PO SCH (09:27)
[2019-05-23] MEDS: Apixaban 5 MG TAB PO SCH ×2 (09:27→18:08)
[2019-05-23] MEDS: Saccharomyces boulardii 250 MG CAP PO SCH (09:27)
[2019-05-23] MEDS: Aspirin Chewable 81 MG TAB PO SCH (09:27)
--- NOTE | 2019-05-23 16:16 | PDOC.HOSPP ---
- Subjective Encounter Date: 05/22/19 Encounter Time: 10:00 Subjective: no overnight events. This morning, feels better compared to time of admission and breathing improved. - Objective Vital Signs & Weight: Vital Signs (12 hours) Temp Pulse Resp BP BP BP Pulse Ox 05/23/19 12:00 97.7 F 88 20 130/62 92 L 05/23/19 09:26 185/86 H 05/23/19 07:47 97.7 F 76 20 185/86 H 93 L Weight Weight 173 lb 3.2 oz I&O: 05/22/19 05/23/19 05/24/19 06:59 06:59 06:59 Intake Total 1320 Output Total 375 2250 Balance -375 930 Result Diagrams: 05/22/19 04:06 05/22/19 04:06 Hospitalist ROS - Review of Systems Constitutional: denies: fever, chills, sweats, weakness, malaise, other Respiratory: denies: cough, dry, shortness of breath, hemoptysis, SOB with excertion, pleuritic pain, sputum, wheezing, other Cardiovascular: denies: chest pain, palpitations, orthopnea, paroxysmal noc. dyspnea, edema, light headedness, other Gastrointestinal: denies: nausea, vomiting, abdominal pain, diarrhea, constipation, melena, hematochezia, other Genitourinary: denies: dysuria, frequency, incontinence, hematuria, retention, other Neurological: denies: weakness, numbness, incoordination, change in speech, confusion, seizures, other - Medication Medications: Active Medications Generic Name Dose Route Start Last Admin Trade Name Kaitlynn PRN Reason Stop Dose Admin Apixaban 5 mg 05/20/19 21:00 05/23/19 09:27 Eliquis PO 5 mg BID RAPHAEL Administration Aspirin 81 mg 05/21/19 09:00 05/23/19 09:27 Aspirin Chewable PO 81 mg DAILY RAPHAEL Administration Clonidine 0.2 mg 05/23/19 09:00 05/23/19 09:26 Catapres PO 0.2 mg BID RAPHAEL Administration Famotidine 20 mg 05/20/19 21:00 05/23/19 09:26 Pepcid PO 20 mg BID RAPHAEL Administration Nebivolol 20 mg 05/22/19 09:00 05/23/19 09:26 Bystolic PO 20 mg DAILY RAPHAEL Administration Saccharomyces Boulardii 250 mg 05/21/19 09:00 05/23/19 09:27 Florastor PO 250 mg DAILY RAPHAEL Administration Sodium Chloride 10 ml 05/21/19 09:00 05/23/19 09:27 Flush - Normal Saline IVF 10 ml Q12HR RAPHAEL Administration Spironolactone 25 mg 05/21/19 09:00 05/23/19 09:27 Aldactone PO 25 mg QAM RAPHAEL Administration Tamsulosin HCl 0.4 mg 05/20/19 21:00 05/22/19 19:49 Flomax PO 0.4 mg HS RAPHEAL Administration Valsartan 160 mg 05/22/19 09:14 05/23/19 09:26 Diovan PO 160 mg BID RAPHAEL Administration - Exam General Appearance: NAD, awake alert Heart: RRR, no murmur, no gallops, no rubs, normal peripheral pulses Respiratory: CTAB, no wheezes, no rales, no ronchi, normal chest expansion, no tachypnea, normal percussion Gastrointestinal: soft, non-tender, non-distended, normal bowel sounds, no palpable masses, no hepatomegaly, no splenomegaly, no bruit Extremities: no cyanosis, no clubbing Extremities - other findings: minimal bilateral edema to knee level Neurological: cranial nerve grossly intact, normal sensation to touch, no weakness, no focal deficits, no new deficit Hosp A/P - Plan (1) Acute on chronic diastolic (congestive) heart failure Code(s): I50.33 - ACUTE ON CHRONIC DIASTOLIC (CONGESTIVE) HEART FAILURE Status : Acute Plan: EF 55-60%, Diastolic dysfunction, continue Lasix, monitor I/O's, daily weight 1. started patient on adjusted regimen of entresto, coreg, lasix, spironolactone 2. will follow tomorrow to determine if tolerates regimen (2) UTI (urinary tract infection) Status: Acute Plan: -UCx grew klebsiella -suscpetible to rocephin, which patient has been on (3) Hypokalemia Code(s): E87.6 - HYPOKALEMIA Status: Acute Plan: likely due to reduced effective perfusion / volume depletion; supplemented (4) Chronic anemia Code(s): D64.9 - ANEMIA, UNSPECIFIED Status: Chronic Plan: Macrocytic indices, B12/Folate normal in 12/, no evidence of acute blood loss; (5) Malignant poorly differentiated neuroendocrine carcinoma Code(s): C7A.1 - MALIGNANT POORLY DIFFERENTIATED NEUROENDOCRINE TUMORS Status : Acute Plan: Receiving current Chemotx
[2019-05-23 16:46] VITALS: TEMP 98.1
[2019-05-23] MEDS: Tamsulosin HCl 0.4 MG CAP PO SCH (18:08)
[2019-05-23 19:26] VITALS: BP 154/68
[2019-05-24] MEDS ORDERED: Furosemide 40 MG TAB PO SCH (07:30)
--- NOTE | 2019-05-25 01:36 | DIS ---
DATE OF ADMISSION: 05/21/2019 DATE OF DISCHARGE: 05/23/2019 HOSPITAL COURSE: Mr. Real is an 84-year-old male, who presented with acute shortness of breath, was found to have decompensated heart failure with preserved ejection fraction and Klebsiella urinary tract infection. During his inpatient stay, the patient was diuresed and his heart failure medications were adjusted. As for his UTI, urine culture grew Klebsiella and even though the patient had no symptoms related to urinary tract infection, considering his recent sepsis due to urinary tract infection, he was treated for an uncomplicated urinary tract infection. On the day of discharge, the patient was hemodynamically stable and was discharged with followup appointment with his primary care physician and Cardiology. PHYSICAL EXAMINATION: VITAL SIGNS: Unremarkable. GENERAL: He was alert and oriented x3 and in no apparent distress. NECK: No JVD. CARDIAC: Regular rate and rhythm. No rubs or gallops or murmurs. LUNGS: Clear to auscultation bilaterally with exception of mild inspiratory rales in the lower lung ramirez. No wheezing or rhonchi. No tachypnea. ABDOMEN: Nontender, nondistended. Normal bowel sounds. No suprapubic tenderness or sensation of fullness. EXTREMITIES: No edema. PSYCHIATRIC: Proper mood and affect. Alert and oriented x3. ASSESSMENT AND PLAN: Mr. Real is an 84-year-old male, who presented with decompensated heart failure with preserved ejection fraction and urinary tract infection. 1. Decompensated heart failure with preserved ejection fraction. a. Echocardiography shows an ejection fraction of 55% to 60% diastolic dysfunction. b. The patient was diuresed with Lasix and improved over his inpatient stay in terms of his shortness of breath. c. The patient was started on Entresto and spironolactone and was continued on Coreg and Lasix, which he tolerated well. He was discharged with followup appointment to Cardiology for continued monitoring. 2. Klebsiella uncomplicated urinary tract infection. The patient was asymptomatic; however, due to recent episode of sepsis due to urinary tract infection, he was treated initially with Rocephin, and that susceptibility was back. He was transitioned to Levaquin for a total treatment duration of 5 days. 3. Hypokalemia. The patient presents with low potassium levels, most likely due to contraction alkalosis, after conservative supplementation with fluids and potassium, hypokalemia resolved. 4. Chronic anemia. Macrocytic indices, B12 and folate levels were normal recently, no acute evidence of blood loss. May be a result of dynamic blood production due to chemotherapy. We will continue to be followed as an outpatient. 5. Malignant poorly differentiated neuroendocrine carcinoma. The patient is receiving chemotherapy. Will be followed by Oncology as an outpatient. Job ID: [id number]
== END 2019-05-23 18:42 | DRG 292 ==
LOC: ERS 12:08 → 2SW 18:09 → OBSVTOIN 05-21 12:35 → 2NO 05-21 13:51
PROVIDERS: ADMIT Hospitalist; ATTEND Hospitalist
DX: I11.0 Hypertensive heart disease with heart failure (principal); N39.0 Urinary tract infection, site not specified; C7A.1 Malignant poorly differentiated neuroendocrine tumors; R55 Syncope and collapse; I50.33 Acute on chronic diastolic (congestive) heart failure; D72.829 Elevated white blood cell count, unspecified; C61 Malignant neoplasm of prostate; E87.6 Hypokalemia; D64.9 Anemia, unspecified; R79.89 Other specified abnormal findings of blood chemistry; I48.91 Unspecified atrial fibrillation; Z79.01 Long term (current) use of anticoagulants; Z95.0 Presence of cardiac pacemaker
CPT/HCPCS: 36415; 70450; 71045; 80048; 80053; 81003; 81015; 82553; 83690; 83735; 83880; 84443; 84484; 85007; 85025; 85027; 87077; 87086; 87186; 93005; 93306; 93798; 96374; 96375; J0360; J0696; J1940; J3490

== ENCOUNTER 2019-05-30 13:52 | Outpatient (CLI) | payer MEDICARE ==
--- NOTE | 2019-05-30 14:40 | CT ---
Head CT without contrast 05/30/2019: COMPARISON: 05/20/2019 HISTORY: Disorientation and blurred vision TECHNIQUE: Axial CT imaging at 5 mm intervals from vertex through skull base without contrast FINDINGS: The visualized paranasal sinuses and mastoid air cells appear well aerated. There is a stab le degree of cerebral volume loss with prominent periventricular, deep, and subcortical white matter hypodensity, evidence of stable small vessel disease. No intracranial hemorrhage, midline shift, or mass effect. IMPRESSION: Small vessel disease. No intracranial hemorrhage.
== END 2019-05-30 13:53 | disposition home or self-care (01) ==
LOC: BICCT 13:52
PROVIDERS: ATTEND Family Medicine
DX: H53.8 Other visual disturbances (principal); R41.0 Disorientation, unspecified; G93.89 Other specified disorders of brain
CPT/HCPCS: 70450

== ENCOUNTER 2019-05-30 14:45 | Inpatient (IN) | payer MEDICARE ==
[2019-05-30 15:16] LABS: Hemoglobin 13.1 g/dL (14.0-18.0); Mean Corpuscular HGB CONC 31.6 g/dL (32.0-36.0); Mean Corpuscular Hemoglobin 31.4 pg (27.0-31.0); Mean Corpuscular Volume 99.5 fL (78.0-98.0); Mean Platelet Volume 8.1 fL (7.4-10.4); Platelet Count 126 thou/uL (130-400); RBC Distribution Width 14.1 % (11.5-14.5); Red Blood Cell (RBC) Count 4.16 mill/uL (4.70-6.10); White Blood Cell (WBC) Count 20.2 thou/uL (4.8-10.8)
[2019-05-30 15:35] LABS: ALT (SGPT) 81 U/L (8-55); AST (SGOT) 44 U/L (5-34); Albumin 3.8 g/dL (3.4-4.8); Alkaline Phosphatase 127 U/L (40-110); BUN (Urea Nitrogen) 28 mg/dL (8.4-25.7); Bilirubin, Total 0.9 mg/dL (0.2-1.2); Calc. Creatinine Clearance 0 mL/min (70-130); Calcium 8.6 mg/dL (7.8-10.44); Estimated GFR-MDRD 63; Globulin 2.5 g/dL (2.4-3.5); Glucose 159 mg/dL (83-110); Protein, Total 6.3 g/dL (5.8-8.1)
[2019-05-30 15:37] LABS: Band 3 % (5-11); Elliptocytes SLIGHT = 2-5 cells (100X) (0-1/hpf); Eosinophils 1 % (0-10); Lymphocytes 24 % (21-51); MDiff Complete? YES; Macrocytosis SLIGHT = 6-15 cells (100X) (0-5/hpf); Monocytes 5 % (0-10); Neutrophil 65 % (42-75); Platelet Morphology Comment Appears Adequate; Reactive Lymphocytes 2 % (0-10); Schistocytes SLIGHT = 2-5 cells (100X) (0-1/hpf)
[2019-05-30 15:45] LABS: Anion Gap 20 mmol/L (10-20); Carbon Dioxide 35 mmol/L (23-31); Chloride 92 mmol/L (98-107); Sodium 144 mmol/L (136-145)
[2019-05-30 15:50] LABS: Potassium 2.5 mmol/L (3.5-5.1)
[2019-05-30 15:57] LABS: CKMB 3.9 ng/mL (0-6.6)
[2019-05-30] MEDS ORDERED: Potassium Chloride 40 MEQ in Sodium Chloride 0.9% 250 ML 250 ML IVPB SCH (16:45)
[2019-05-30] MEDS ORDERED: Potassium Chloride 20 MEQ TAB ONE (16:58)
[2019-05-30] MEDS ORDERED: Labetalol HCl 100 MG/20 ML VIAL ONE (17:22)
[2019-05-30] MEDS ORDERED: Aspirin Chewable 81 MG TAB ONE (17:23)
--- NOTE | 2019-05-30 17:43 | RAD ---
RADIOGRAPH CHEST 1 VIEW: 05/30/19 at 4:56 p.m. HISTORY: 84-year-old male with hypokalemia and elevated troponin. FINDINGS: There is cardiomegaly. There is no evidence of air space density, pulmonary edema, or pneumothorax. T he lateral costophrenic angles are sharp. There is slight prominence of the pulmonary vasculature. St ernotomy wires. Single lead left subclavian transvenous permanent pacemaker with distal tip at the partida perior aspect of the left cardiac shadow. No interval change since 05/20/2019. IMPRESSION: 1) No acute pulmonary findings. 2) Cardiomegaly without overt congestive heart failure. 3) Pacemaker. 4) Prior open heart surgery. corey [] POS: [facility]
[2019-05-30 17:58] LABS: Bacteria/HPF None Seen HPF (None Seen); Bilirubin Negative (Negative); Blood, Urine 2+ (Negative); Clarity Clear (Clear); Glucose, Urine (Dipstick) Normal (Negative); Leukocyte Negative Leu/uL (Negative); Nitrite Negative (Negative); Protein, Urine (Dipstick) 20 mg/dL (Neg-Trace); RBC/HPF 21-50 HPF (0-3); Squamous Epithelial 0-3 HPF (0-3); Urobilinogen Normal mg/dL (Less than 2); WBC/HPF 0-3 HPF (0-3)
[2019-05-30 19:45] LABS: Troponin I 0.125 ng/mL (< 0.028)
[2019-05-30 21:21] VITALS: BMI 24.0
[2019-05-30 22:27] LABS: Troponin I 0.139 ng/mL (< 0.028)
[2019-05-31] MEDS ORDERED: cloNIDine 0.1 MG TAB PO PRN (04:03)
[2019-05-31] MEDS ORDERED: Labetalol HCl 100 MG/20 ML VIAL SLOW IVP PRN (04:03)
[2019-05-31] MEDS: hydrALAZINE 20 MG/ML VIAL SLOW IVP PRN ×3 (04:18→17:32)
[2019-05-31 05:01] LABS: BUN (Urea Nitrogen) 26 mg/dL (8.4-25.7); Calc. Creatinine Clearance 68 mL/min (70-130); Calcium 8.6 mg/dL (7.8-10.44); Estimated GFR-MDRD 78; Glucose 160 mg/dL (83-110); Magnesium 2.1 mg/dL (1.6-2.6)
[2019-05-31 05:08] LABS: Mean Corpuscular HGB CONC 31.5 g/dL (32.0-36.0); Mean Corpuscular Hemoglobin 31.1 pg (27.0-31.0); Mean Corpuscular Volume 98.8 fL (78.0-98.0); RBC Distribution Width 14.4 % (11.5-14.5); Red Blood Cell (RBC) Count 3.86 mill/uL (4.70-6.10)
[2019-05-31 05:11] LABS: Anion Gap 13 mmol/L (10-20); Carbon Dioxide 38 mmol/L (23-31); Chloride 97 mmol/L (98-107); Sodium 145 mmol/L (136-145)
[2019-05-31 05:18] LABS: Potassium 2.8 mmol/L (3.5-5.1)
[2019-05-31 05:33] LABS: Band 3 % (5-11); Elliptocytes SLIGHT = 2-5 cells (100X) (0-1/hpf); Lymphocytes 26 % (21-51); MDiff Complete? YES; Mean Platelet Volume 8.1 fL (7.4-10.4); Monocytes 4 % (0-10); Neutrophil 64 % (42-75); Platelet Count 116 thou/uL (130-400); Platelet Morphology Comment Appears Decreased; Reactive Lymphocytes 3 % (0-10); Schistocytes SLIGHT = 2-5 cells (100X) (0-1/hpf); White Blood Cell (WBC) Count 19.2 thou/uL (4.8-10.8)
[2019-05-31] MEDS: Potassium Chloride 20 MEQ TAB PO SCH ×3 (09:51→17:29)
[2019-05-31] MEDS ORDERED: Acetaminophen 325 MG TAB PO PRN (11:38)
[2019-05-31] MEDS: Baclofen 10 MG TAB PO SCH ×2 (12:18→17:27)
--- NOTE | 2019-05-31 14:30 | HP ---
PRIMARY CARE PROVIDER: Dr. Desiree Rodas. CHIEF COMPLAINT: Abnormal labs. HISTORY OF PRESENT ILLNESS: Mr. Real is a pleasant 84-year-old gentleman, who was seen at [facility] on May 31, 2019. He was hospitalized at this facility from May 21 to of this year for congestive heart failure exacerbation and Klebsiella urinary tract infection. He was started on Entresto and spironolactone during that hospitalization and was continued on Coreg and furosemide. The patient reports that he has home health. His potassium was checked and it was found to be low. He was therefore sent to the emergency room. He denies any chest pain or shortness of breath. He denies any fevers or chills. He reports generalized weakness. He denies any nausea or vomiting. He denies any abdominal pain. REVIEW OF SYSTEMS: All systems were reviewed and found to be negative except for the pertinent positives mentioned above. PAST MEDICAL HISTORY: Atrial fibrillation, ablation x2; coronary stents x2; prostate cancer, currently on chemotherapy; hypertension; and dementia. PAST SURGICAL HISTORY: Coronary stents. ALLERGIES: AMANTADINE. HOME MEDICATIONS: 1. Baclofen 10 mg 3 times a day. 2. Apixaban 5 mg 2 times a day. 3. Aspirin 81 mg daily. 4. Clonidine 0.2 mg 2 times a day. 5. Lasix 40 mg daily. 6. Nebivolol 20 mg daily. 7. Florastor 250 mg daily. 8. Spironolactone 25 mg daily. 9. Flomax 0.4 mg at bedtime. 10. Valsartan 160 mg 2 times a day. 11. Zofran p.r.n. SOCIAL HISTORY: The patient lives in assisted living. He denies any tobacco use, alcohol use, or recreational drug use. FAMILY HISTORY: No family history of premature coronary artery disease. CODE STATUS: I discussed his code status. He is full code. PHYSICAL EXAMINATION: GENERAL: On examination, Mr. Real is awake and alert, not in acute distress. VITAL SIGNS: Blood pressure is 136/90, pulse 80, respiratory rate 21, and oxygen saturation 97% on room air. He is afebrile. EYES: No scleral icterus, no conjunctival pallor. ENT: Moist mucosal membranes. No oropharyngeal erythema or exudates. NECK: Supple, nontender, trachea is midline. RESPIRATORY: Accessory muscles of breathing are not active. Chest wall movements are symmetric bilaterally. Lungs are clear to auscultation without wheeze, rhonchi, or crepitations. CARDIOVASCULAR: S1 and S2 are heard, regular. Peripheral pulses palpable. ABDOMEN: Soft, nontender, bowel sounds are heard. NEUROLOGIC: Cranial nerves 2 through 12 are intact. MUSCULOSKELETAL: The patient is able to move all 4 extremities. SKIN: Bilateral lower extremity edema. LYMPHATIC: No cervical lymphadenopathy. PSYCHIATRIC: Normal mood, normal affect, patient is oriented to person and place, not time. LABORATORY DATA: Mr. Real's labs and investigations were reviewed. I reviewed his electrocardiogram, which shows wide-complex rhythm. He does have pacing spikes on equipment monitor phototypesetting. I also reviewed his chest x-ray, which does not show any pulmonary infiltrates. He has leukocytosis with 19,200 white cells, of which 64% are neutrophils. He has macrocytic anemia with hemoglobin of 12 and thrombocytopenia with platelet count of 116,000. Sodium is normal at 145. Potassium is decreased at 2.8, increasing from 2.5 yesterday. Creatinine is normal. Troponin I is in the indeterminate range at 0.139. BNP is elevated at 821. Urinalysis is negative for nitrite and leukocyte esterase. ASSESSMENT AND PLAN: Mr. Real is a pleasant 84-year-old gentleman, who was seen at [facility] on May 31, 2019. His problem list includes: 1. Hypokalemia. Mr. Real is presenting with severe hypokalemia. He is being admitted to the hospital for potassium repletion. We will recheck potassium level after replacing potassium. 2. Generalized weakness: Could be secondary to hypokalemia. We will request physiotherapy evaluation and treatment. 3. Congestive heart failure: The patient has a history of chronic diastolic congestive heart failure. This appears to be stable, we will continue furosemide. 4. Atrial fibrillation: The patient has a pacemaker. We will continue Eliquis. 5. Benign prostate hypertrophy, history of prostate cancer: Continue Flomax. Many thanks for allowing me to participate in your patient's care. Please feel free to contact me with any questions or concerns. LEVEL OF RISK: High. LEVEL OF COMPLEXITY: High. Job ID: [id number]
[2019-05-31] MEDS: cloNIDine 0.1 MG TAB PO SCH (20:16)
[2019-05-31] MEDS: Apixaban 5 MG TAB PO SCH (20:16)
[2019-05-31] MEDS: Valsartan 80 MG TAB PO SCH (20:16)
[2019-05-31] MEDS: Tamsulosin HCl 0.4 MG CAP PO SCH (20:16)
[2019-05-31] MEDS ORDERED: Valsartan 80 MG TAB PO SCH (21:00)
[2019-06-01 05:29] LABS: Anion Gap 12 mmol/L (10-20); BUN (Urea Nitrogen) 24 mg/dL (8.4-25.7); Calc. Creatinine Clearance 78 mL/min (70-130); Calcium 8.7 mg/dL (7.8-10.44); Carbon Dioxide 36 mmol/L (23-31); Chloride 99 mmol/L (98-107); Estimated GFR-MDRD Greater than 90; Glucose 137 mg/dL (83-110); Magnesium 2.2 mg/dL (1.6-2.6); Potassium 3.7 mmol/L (3.5-5.1); Sodium 143 mmol/L (136-145)
[2019-06-01 06:01] LABS: Band 5 % (5-11); Elliptocytes SLIGHT = 2-5 cells (100X) (0-1/hpf); Hemoglobin 11.7 g/dL (14.0-18.0); Lymphocytes 16 % (21-51); MDiff Complete? YES; Mean Corpuscular Hemoglobin 30.8 pg (27.0-31.0); Mean Corpuscular Volume 99.4 fL (78.0-98.0); Mean Platelet Volume 8.2 fL (7.4-10.4); Monocytes 1 % (0-10); Neutrophil 78 % (42-75); Platelet Count 105 thou/uL (130-400); Platelet Morphology Comment Appears Decreased; RBC Distribution Width 14.5 % (11.5-14.5); Red Blood Cell (RBC) Count 3.78 mill/uL (4.70-6.10)
[2019-06-01] MEDS: Furosemide 40 MG TAB PO SCH (07:34)
[2019-06-01] MEDS: hydrALAZINE 20 MG/ML VIAL SLOW IVP PRN (07:34)
[2019-06-01] MEDS ORDERED: Nebivolol HCl 5 MG TAB PO SCH ×2 (09:00→14:30)
[2019-06-01] MEDS: Apixaban 5 MG TAB PO SCH ×2 (09:44→20:37)
[2019-06-01] MEDS: Valsartan 80 MG TAB PO SCH ×2 (09:44→20:37)
[2019-06-01] MEDS: Aspirin Chewable 81 MG TAB PO SCH (09:44)
[2019-06-01] MEDS: cloNIDine 0.1 MG TAB PO SCH ×2 (09:46→20:38)
[2019-06-01] MEDS: Spironolactone 25 MG TAB PO SCH (09:46)
[2019-06-01] MEDS: Baclofen 10 MG TAB PO SCH ×3 (09:46→16:04)
--- NOTE | 2019-06-01 14:05 | PDOC.HOSPP ---
- Subjective Encounter Date: 06/01/19 Encounter Time: 14:03 Subjective: Pt seen for followup re: atrial . Pt denies any complaints. - Objective Vital Signs & Weight: Vital Signs (12 hours) Temp Pulse Pulse Pulse Resp BP BP 06/01/19 11:38 97.9 F 75 14 06/01/19 09:55 101 H 80 180/86 H 06/01/19 09:46 180/86 H 06/01/19 07:14 98.0 F 87 9 L 06/01/19 03:36 98.0 F 70 14 BP BP Pulse Ox 06/01/19 11:38 154/84 H 96 06/01/19 09:55 184/109 H 06/01/19 09:46 06/01/19 07:14 199/105 H 96 06/01/19 03:36 161/82 H 93 L Weight Weight 172 lb 6.4 oz I&O: 05/31/19 06/01/19 06/02/19 06:59 06:59 06:59 Intake Total 1420 Balance 1420 Result Diagrams: 06/01/19 04:41 06/01/19 04:41 Additional Labs: Labs and MARs reviewed by me EKG Reviewed by me: Yes (Tele: ney duff) Hospitalist ROS - Review of Systems Cardiovascular: denies: chest pain, palpitations, orthopnea, paroxysmal noc. dyspnea, edema, light headedness Gastrointestinal: denies: nausea, vomiting, abdominal pain, diarrhea, constipation, melena, hematochezia - Medication Medications: Active Medications Generic Name Dose Route Start Last Admin Trade Name Freq PRN Reason Stop Dose Admin Apixaban 5 mg 05/31/19 21:00 06/01/19 09:44 Eliquis PO 5 mg BID RAPHAEL Administration Aspirin 81 mg 06/01/19 09:00 06/01/19 09:44 Aspirin Chewable PO 81 mg DAILY RAPHAEL Administration Baclofen 10 mg 05/31/19 12:00 06/01/19 11:45 Lioresal PO 10 mg TID-WM RAPHAEL Administration Clonidine 0.1 mg 05/31/19 04:03 05/31/19 15:39 Catapres PO 0.1 mg BID PRN Administration SBP > 160 use second Clonidine 0.2 mg 05/31/19 21:00 06/01/19 09:46 Catapres PO 0.2 mg BID RAPHAEL Administration Furosemide 40 mg 06/01/19 07:30 06/01/19 07:34 Lasix PO 40 mg DAILY-AC RAPHAEL Administration Hydralazine HCl 10 mg 05/31/19 04:03 06/01/19 07:34 Apresoline SLOW IVP 10 mg Q6H PRN Administration SBP GREATER THAN 160 Nebivolol 20 mg 06/01/19 09:00 06/01/19 09:45 Bystolic PO 20 mg DAILY RAPHAEL Administration Spironolactone 25 mg 06/01/19 09:00 06/01/19 09:46 Aldactone PO 25 mg QAM RAPHAEL Administration Tamsulosin HCl 0.4 mg 05/31/19 21:00 05/31/19 20:16 Flomax PO 0.4 mg HS RAPHAEL Administration Valsartan 160 mg 05/31/19 21:00 06/01/19 09:44 Diovan PO 160 mg BID RAPHAEL Administration - Exam General Appearance: NAD, awake alert Eye: anicteric sclera ENT: normocephalic atraumatic, moist mucosa Neck: supple Heart: RRR, no rubs Respiratory: CTAB Gastrointestinal: soft, non-tender Psychiatric: normal affect, normal behavior Hosp A/P (1) Atrial flutter Code(s): I48.92 - UNSPECIFIED ATRIAL FLUTTER Status: Acute (2) Hypertensive urgency Code(s): I16.0 - HYPERTENSIVE URGENCY Status: Acute (3) Prostate CA Code(s): C61 - MALIGNANT NEOPLASM OF PROSTATE Status: Chronic (4) HTN (hypertension) Code(s): I10 - ESSENTIAL (PRIMARY) HYPERTENSION Status: Chronic (5) Dementia Code(s): F03.90 - UNSPECIFIED DEMENTIA WITHOUT BEHAVIORAL DISTURBANCE Status: Chronic (6) Hypokalemia Code(s): E87.6 - HYPOKALEMIA Status: Resolved - Plan out of bed/ambulate Hypokalemia resolved. Continue oral furosemide Pt has a h/o atrial fibrillation. Pt has leucocytosis but no evidence of infection. Ambulate pt. Increase nebivolol to 30 mg daily. Pt was reportedly not started on Entresto last hospitalization, continue valsartan.
[2019-06-01] MEDS: Tamsulosin HCl 0.4 MG CAP PO SCH (20:37)
--- NOTE | 2019-06-02 00:06 | CON ---
DATE OF CONSULTATION: HISTORY OF PRESENT ILLNESS: Sam Real is an 84-year-old white male, who has a previous cardiac history; however, it is very confusing in trying to understand all of that. He has a single-chamber pacemaker. It sounds as if he underwent some type of ablation in the past. He has chronic atrial fibrillation. He was just evaluated by Dr. George on 05/23/2019. He became weak and apparently lost consciousness after undergoing chemotherapy. He was monitored and then discharged. During that admission, echocardiogram revealed ejection fraction of 55% to 60% with severely dilated left atrium, severely enlarged right atrium, mildly enlarged right ventricle, moderate mitral regurgitation, [id number] tricuspid regurgitation. He now is admitted after being found to be profoundly hypokalemic. His potassium has been replaced and after there was documented evidence that it was replaced, he developed an episode of nonsustained ventricular tachycardia with a rate of approximately 200 per minute. He denies any chest discomfort. He denies any significant shortness of breath. PAST MEDICAL HISTORY: Chronic atrial fibrillation, coronary stents, ablation, pacemaker placement. PAST SURGICAL HISTORY: TURP and pacemaker placement. MEDICATIONS: 1. Eliquis 5 mg b.i.d. 2. Aspirin 81 daily. 3. Clonidine 0.2 mg b.i.d. 4. Furosemide 40 daily. 5. Bystolic 20 mg daily. 6. Florastor 250 daily. 7. Aldactone 25 q.a.m. 8. Flomax 0.4 mg nightly. 9. Valsartan 160 b.i.d. ALLERGIES: AMANTADINE. LABORATORY DATA: EKG revealed paced rhythm. Potassium is increased from 2.4 up to 3.7. Sodium 143, , carbon dioxide 36, BUN 24, creatinine 0.81. Troponin I 0.140 (he has chronically elevated troponin Is). BNP 821.3. IMPRESSION: 1. Nonsustained ventricular tachycardia. 2. Chronic atrial fibrillation. 3. Single-chamber pacemaker placement. 4. Ablations of unknown rhythm. It is unknown if this was for atrial fibrillation or for AV node ablation. 5. History of coronary artery disease with stent placement. PLAN: The patient is uncertain which type of pacemaker he has, although Medtronic seems to be the most recognizable . I will have [facility] performed to see if he has more prolonged episodes of nonsustained ventricular tachycardia. His Bystolic has been increased from 20 mg to 30 mg q.a.m. and I agree with increasing his beta-judy. It also looks like on chest x-ray that he may have a LINQ and this could also be interrogated. Job ID: [id number]
[2019-06-02 05:16] LABS: BUN (Urea Nitrogen) 33 mg/dL (8.4-25.7); Calc. Creatinine Clearance 59 mL/min (70-130); Calcium 9.2 mg/dL (7.8-10.44); Estimated GFR-MDRD 66; Glucose 124 mg/dL (83-110); Magnesium 2.3 mg/dL (1.6-2.6)
[2019-06-02 05:27] LABS: Anion Gap 14 mmol/L (10-20); Carbon Dioxide 36 mmol/L (23-31); Chloride 95 mmol/L (98-107); Potassium 3.6 mmol/L (3.5-5.1); Sodium 141 mmol/L (136-145)
[2019-06-02 05:54] LABS: Band 3 % (5-11); Hemoglobin 12.1 g/dL (14.0-18.0); Lymphocytes 31 % (21-51); MDiff Complete? YES; Mean Corpuscular Hemoglobin 32.8 pg (27.0-31.0); Mean Corpuscular Volume 99.6 fL (78.0-98.0); Mean Platelet Volume 8.3 fL (7.4-10.4); Monocytes 3 % (0-10); Neutrophil 63 % (42-75); Platelet Count 110 thou/uL (130-400); Platelet Morphology Comment Appears Decreased; RBC Distribution Width 14.4 % (11.5-14.5); White Blood Cell (WBC) Count 18.3 thou/uL (4.8-10.8)
[2019-06-02] MEDS: Furosemide 40 MG TAB PO SCH (09:32)
[2019-06-02] MEDS: Baclofen 10 MG TAB PO SCH ×3 (09:34→17:22)
[2019-06-02] MEDS: Spironolactone 25 MG TAB PO SCH (09:34)
[2019-06-02] MEDS: cloNIDine 0.1 MG TAB PO SCH ×2 (09:34→21:15)
[2019-06-02] MEDS: Aspirin Chewable 81 MG TAB PO SCH (09:34)
[2019-06-02] MEDS: Nebivolol HCl 5 MG TAB PO SCH (09:35)
[2019-06-02] MEDS: Valsartan 80 MG TAB PO SCH ×2 (09:35→21:15)
--- NOTE | 2019-06-02 19:23 | CON ---
DATE OF CONSULTATION: 06/02/2019 REASON FOR CONSULTATION: Nonsustained ventricular tachycardia. CONSULTING PHYSICIAN: Consultation performed by Dr. Iggy Cedillo. HISTORY OF PRESENT ILLNESS: Mr. Real is an 84-year-old gentleman, who has been hospitalized frequently over the past four months for heart failure exacerbation and urinary tract infection. He was discharged at the end of April and while at home, his potassium was checked either by home health or assisted living and was found to be profoundly low and was sent to the emergency room for further evaluation. His potassium on admission was 2.5. He did have his potassium replaced and was 3.7 on 06/01. Later that morning, he had approximately 15-beat run of wide-complex tachycardia suggestive of ventricular tachycardia. He was asymptomatic with this. An echocardiogram was done that shows an ejection fraction of 55% to 60% and EP consultation was requested. His Bystolic dose was also increased. Mr. Real is a gentleman known to our practice in the remote past for atrial arrhythmias. He had symptomatic paroxysmal atrial fibrillation and underwent PVAI in March of 2012. The procedure unfortunately was complicated by cardiac tamponade requiring surgical repair and he ended up having his atrial appendage excluded using an AtriClip exclusion device. His PVAI had excluded his nearly three of the pulmonary veins before the tamponade occurred. He was last seen in our clinic in September of 2012. At that time, later recommended that he undergo ZAC for evaluation of his left atrial appendage before discontinuing anticoagulation, but the patient had failed to follow up since that time. Now, we find Mr. Real has a loop recorder and a pacemaker and he remains on Eliquis. Mr. Real suffers from dementia and is an extremely poor historian. He does voice that he cannot recall his history accurately. It appears that he has seen multiple acid cutter across the city in the past decade. REVIEW OF SYSTEMS: Very difficult to complete with the patient's limited cognitive status, but he does say that he does not have any complaints and feels well. He does get frustrated with frequent questions. PAST MEDICAL HISTORY: 1. Persistent atrial arrhythmias status post attempted PVAI in March of 2012 complicated by cardiac tamponade requiring left atrial appendage closure with an AtriClip. 2. Dementia. 3. Prostate cancer, undergoing chemotherapy. 4. Recent urinary tract infections with Citrobacter. 5. Sepsis secondary to urinary tract infection. 6. Anemia of chronic disease. 7. Left atrial appendage closure with AtriClip in March 2012. 8. Hypertension as well as syncope and collapse following chemotherapy in April of 2019. 9. Congestive heart failure, new onset in April of 2019, ejection fraction 55% . FAMILY HISTORY: The patient unable to recall family history. SOCIAL HISTORY: The patient has dementia, has either assisted living or home health. OBJECTIVE: VITAL SIGNS: Temperature 98 degrees, pulse 76, blood pressure 157/ 79, respirations 18, and oxygen is 96% on room air. GENERAL: The patient is alert. He is oriented to his name and location, otherwise disoriented. Poor historian. He is in no apparent distress. Sitting upright at the time of exam. The patient does get frustrated easily and has a difficult time with frequent questions as he cannot recall the answers. NECK: Supple without jugular venous distention. LUNGS: Right lower lobe has some fine crackles, otherwise lungs are clear to auscultation. Respirations are even and unlabored with good bilateral excursion. HEART: Rate is irregularly irregular. PMI is nondisplaced. There is implantable loop recorder palpable along the left sternal border. ABDOMEN: Soft and nontender without palpable masses. EXTREMITIES: Warm and dry to touch without clubbing, cyanosis, or edema. NEUROLOGIC: Nonfocal. Gait was not assessed. DATABASE: Hematology; WBC 18.3, hemoglobin 12.1, hematocrit 36, and platelet count is 110. Chemistry; sodium 141, potassium 3.6 (initially 2.5 on admission), and magnesium 2.3. Liver enzymes slightly elevated. BNP 821 on admission. Telemetry and EKG largely suggestive of atrial flutter with ventricular pacing. There is a wide-complex tachycardia run on the morning of 06/01/2019, approximately 3 seconds in duration, 11 beats at a rate of approximately 200 beats per minute. IMPRESSION: 1. Wide-complex tachycardia suggestive of ventricular tachycardia, asymptomatic in a setting of a preserved ejection fraction of 55%. Also with recent significant potassium electrolyte shift. 2. Dementia. 3. Atrial arrhythmias. 4. Single-chamber pacemaker, interrogation pending. 5. 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 6. Hypokalemia. 7. Congestive heart failure diagnosed in April of 2019. Currently medically managed by Cardiology. PLAN AND RECOMMENDATIONS: Mr. Real is an 84-year-old gentleman, who unfortunately struggles with significant dementia. He is a very poor historian and he has been lost to follow up with our group for nearly seven years now. The records do show that he had a left atrial appendage closure, but never followed up to have a ZAC performed to verify closure was adequate. He remains on anticoagulation. Spoken with Dr. George and plan is to have a ZAC to evaluate his left atrial appendage, if closed, from an electrophysiology standpoint, he can certainly come off Eliquis. I have reviewed additional records and at this point, there is no clear documentation of additional indication for anticoagulation such as DVT or PE. In regard to his nonsustained ventricular tachycardia, it is in the setting of a preserved ejection fraction with a recent insignificant shift in his potassium. Right now, I would recommend medical management by increasing his beta judy. His Bystolic was increased. The patient was asymptomatic with this. We will continue to monitor through his pacemaker at this time. His pacemaker check is pending. I do not see any mention of what brand it is, we will try Medtronic, if that is most likely the type he has if it was placed locally. Otherwise, reach out to [facility] to try to interrogate this device. We will do this to evaluate for any additional ventricular events in light of this newly found ventricular arrhythmia. Thank you for allowing me to participate in the care of this patient. Job ID: [id number] MTDD
--- NOTE | 2019-06-02 19:38 | PDOC.HOSPP ---
- Subjective Encounter Date: 06/02/19 Encounter Time: 08:40 Subjective: Pt seen for followup re: atrial flutter. Denies any complaints, states he feels well. - Objective Vital Signs & Weight: Vital Signs (12 hours) Temp Pulse Resp BP BP BP Pulse Ox 06/02/19 15:46 98.2 F 71 14 166/91 H 95 06/02/19 12:00 97.0 F L 74 20 178/98 H 98 06/02/19 09:34 157/79 H 06/02/19 08:00 96 Weight Weight 172 lb 6.4 oz I&O: 06/01/19 06/02/19 06/03/19 06:59 06:59 06:59 Intake Total 1420 1020 500 Output Total 200 Balance 1420 820 500 Result Diagrams: 06/02/19 04:17 06/02/19 04:17 Additional Labs: Labs and MARs reviewed by me EKG Reviewed by me: Yes (Tele: atrial flutter) Hospitalist ROS - Review of Systems Respiratory: denies: cough, shortness of breath, SOB with excertion, pleuritic pain, wheezing Cardiovascular: denies: chest pain, palpitations, orthopnea, paroxysmal noc. dyspnea, edema, light headedness - Medication Medications: Active Medications Generic Name Dose Route Start Last Admin Trade Name Freq PRN Reason Stop Dose Admin Aspirin 81 mg 06/01/19 09:00 06/02/19 09:34 Aspirin Chewable PO 81 mg DAILY RAPHAEL Administration Baclofen 10 mg 05/31/19 12:00 06/02/19 17:22 Lioresal PO 10 mg TID-WM RAPHAEL Administration Clonidine 0.1 mg 05/31/19 04:03 05/31/19 15:39 Catapres PO 0.1 mg BID PRN Administration SBP > 160 use second Clonidine 0.2 mg 05/31/19 21:00 06/02/19 09:34 Catapres PO 0.2 mg BID RAPHAEL Administration Furosemide 40 mg 06/01/19 07:30 06/02/19 09:32 Lasix PO 40 mg DAILY-AC RAPHAEL Administration Hydralazine HCl 10 mg 05/31/19 04:03 06/01/19 07:34 Apresoline SLOW IVP 10 mg Q6H PRN Administration SBP GREATER THAN 160 Nebivolol 30 mg 06/02/19 09:00 02/03/20 09:35 Bystolic PO 30 mg DAILY RAPHAEL Administration Spironolactone 25 mg 06/01/19 09:00 06/02/19 09:34 Aldactone PO 25 mg QAM RAPHAEL Administration Tamsulosin HCl 0.4 mg 05/31/19 21:00 06/01/19 20:37 Flomax PO 0.4 mg HS RAPHAEL Administration Valsartan 160 mg 05/31/19 21:00 06/02/19 09:35 Diovan PO 160 mg BID RAPHAEL Administration - Exam General Appearance: NAD Eye: anicteric sclera ENT: moist mucosa Neck: supple, symmetric Heart: RRR Respiratory: CTAB Gastrointestinal: soft, non-tender Psychiatric: normal affect, normal behavior Hosp A/P (1) Atrial flutter Code(s): I48.92 - UNSPECIFIED ATRIAL FLUTTER Status: Acute (2) Hypertensive urgency Code(s): I16.0 - HYPERTENSIVE URGENCY Status: Acute (3) Prostate CA Code(s): C61 - MALIGNANT NEOPLASM OF PROSTATE Status: Chronic (4) HTN (hypertension) Code(s): I10 - ESSENTIAL (PRIMARY) HYPERTENSION Status: Chronic (5) Dementia Code(s): F03.90 - UNSPECIFIED DEMENTIA WITHOUT BEHAVIORAL DISTURBANCE Status: Chronic (6) Hypokalemia Code(s): E87.6 - HYPOKALEMIA Status: Resolved - Plan Continue oral furosemide Pt has a h/o atrial fibrillation. No clear evidence of infection. Ambulate pt. Increased nebivolol to 30 mg daily. D/W EP service. Plan for ZAC to see if pt can come off of anticoagulation.
[2019-06-02] MEDS: Tamsulosin HCl 0.4 MG CAP PO SCH (21:15)
[2019-06-03 04:31] LABS: Anion Gap 10 mmol/L (10-20); BUN (Urea Nitrogen) 30 mg/dL (8.4-25.7); Calc. Creatinine Clearance 77 mL/min (70-130); Calcium 8.3 mg/dL (7.8-10.44); Carbon Dioxide 37 mmol/L (23-31); Chloride 98 mmol/L (98-107); Estimated GFR-MDRD 90; Glucose 116 mg/dL (83-110); Magnesium 2.1 mg/dL (1.6-2.6); Sodium 142 mmol/L (136-145)
[2019-06-03] MEDS: hydrALAZINE 20 MG/ML VIAL SLOW IVP PRN (04:51)
[2019-06-03 05:22] LABS: Band 3 % (5-11); Hemoglobin 10.4 g/dL (14.0-18.0); Lymphocytes 19 % (21-51); MDiff Complete? YES; Mean Corpuscular HGB CONC 32.2 g/dL (32.0-36.0); Mean Corpuscular Hemoglobin 31.4 pg (27.0-31.0); Mean Corpuscular Volume 97.6 fL (78.0-98.0); Mean Platelet Volume 8.3 fL (7.4-10.4); Monocytes 2 % (0-10); Neutrophil 76 % (42-75); Platelet Count 96 thou/uL (130-400); Platelet Morphology Comment Appears Decreased; RBC Distribution Width 14.4 % (11.5-14.5); Red Blood Cell (RBC) Count 3.31 mill/uL (4.70-6.10); White Blood Cell (WBC) Count 13.8 thou/uL (4.8-10.8)
[2019-06-03] MEDS ORDERED: PROPOFOL 0 ML ONE (10:02)
[2019-06-03] MEDS ORDERED: PROPOFOL 20 ML ONE ×2 (10:03→10:04)
[2019-06-03] MEDS ORDERED: Lidocaine 1% (PF) 30 ML VIAL ONE (10:05)
[2019-06-03] MEDS: Baclofen 10 MG TAB PO SCH ×3 (12:09→16:57)
[2019-06-03] MEDS: Nebivolol HCl 5 MG TAB PO SCH (12:11)
[2019-06-03] MEDS: cloNIDine 0.1 MG TAB PO SCH ×2 (12:11→21:33)
[2019-06-03] MEDS: Aspirin Chewable 81 MG TAB PO SCH (12:12)
[2019-06-03] MEDS: Furosemide 40 MG TAB PO SCH (12:12)
[2019-06-03] MEDS: Spironolactone 25 MG TAB PO SCH (12:12)
[2019-06-03] MEDS: Valsartan 80 MG TAB PO SCH ×2 (12:12→21:33)
[2019-06-03] MEDS: Potassium Chloride 20 MEQ TAB PO SCH ×2 (12:13→15:19)
[2019-06-03] MEDS ORDERED: PROPOFOL 200 MG/20 ML VIAL ONE (13:28)
--- NOTE | 2019-06-03 14:28 | OP ---
DATE OF PROCEDURE: 06/03/2019 PROCEDURE PERFORMED: Transesophageal echocardiogram. INDICATION: An 84-year-old gentleman with history of paroxysmal atrial fibrillation. DESCRIPTION OF PROCEDURE: The patient was taken to the PACU. The patient was sedated by Anesthesiology. A transesophageal probe was placed into the esophagus and stomach. Echocardiographic images were obtained. The transesophageal probe was removed. FINDINGS: 1. Normal left ventricular systolic function. 2. Marked biatrial enlargement. 3. Normal mitral and aortic valves. 4. Moderate mitral regurgitation. 5. Mild aortic regurgitation. 6. [id number] tricuspid regurgitation. 7. Pacemaker wires noted in the right ventricle. 8. Left atrial appendage appears to be closed with no significant leak. 9. Atherosclerotic debris in the descending aorta. IMPRESSION: The left atrial appendage closure shows no significant leak. Job ID: [id number] MTDD
[2019-06-03] MEDS ORDERED: Potassium Chloride 20 MEQ TAB PO SCH (16:00)
--- NOTE | 2019-06-03 18:19 | PDOC.EP ---
- Subjective Date: 06/03/19 Time: 08:00 Interval History: bedside and patient much less agitated. Remains confused with baseline dementia. Feels well. No complaints except wants coffee while NPO - Review of Systems Constitutional: denies: chills, fever, malaise, sweats, weakness, other Respiratory: denies: cough, dry, hemoptysis, pleuritic pain, shortness of breath , SOB with excertion, sputum, wheezing, other Cardiology: denies: chest pain, edema, heart racing, light headedness, passing out - Objective Allergies/Adverse Reactions: Allergies Allergy/AdvReac Type Severity Reaction Status Date / Time amantadine Allergy Verified 05/20/19 18:42 Current Medications Acetaminophen (Tylenol) 650 mg PO Q4H PRN PRN Reason: Headache/Fever/Mild Pain (1-3) Aspirin (Aspirin Chewable) 81 mg PO DAILY [facility] Last Admin: 06/03/19 12:12 Dose: 81 mg Baclofen (Lioresal) 10 mg PO TID-WM [facility] Last Admin: 06/03/19 16:57 Dose: 10 mg Clonidine (Catapres) 0.1 mg PO BID PRN PRN Reason: SBP > 160 use second Last Admin: 05/31/19 15:39 Dose: 0.1 mg Clonidine (Catapres) 0.2 mg PO BID [facility] Last Admin: 06/03/19 12:11 Dose: 0.2 mg Furosemide (Lasix) 40 mg PO DAILY-AC [facility] Last Admin: 06/03/19 12:12 Dose: 40 mg Hydralazine HCl (Apresoline) 10 mg SLOW IVP Q6H PRN PRN Reason: SBP GREATER THAN 160 Last Admin: 06/03/19 04:51 Dose: 10 mg Labetalol HCl (Normodyne) 20 mg SLOW IVP Q4H PRN PRN Reason: SBP > 160 use third Nebivolol (Bystolic) 30 mg PO DAILY [facility] Last Admin: 06/03/19 12:11 Dose: 30 mg Spironolactone (Aldactone) 25 mg PO QAM [facility] Last Admin: 06/03/19 12:12 Dose: 25 mg Tamsulosin HCl (Flomax) 0.4 mg PO HS [facility] Last Admin: 06/02/19 21:15 Dose: 0.4 mg Valsartan (Diovan) 160 mg PO BID [facility] Last Admin: 06/03/19 12:12 Dose: 160 mg Vital Signs & Weight: Vital Signs Temp Pulse Resp BP BP BP Pulse Ox 06/03/19 16:00 97.7 F 72 16 172/94 H 97 06/03/19 12:11 168/97 H 06/03/19 12:00 78 168/97 H 06/03/19 08:00 97.6 F 80 18 132/72 94 L Weight 172 lb 6.4 oz I/O: I/O 06/02/19 06/03/19 06/04/19 06:59 06:59 06:59 Intake Total 1020 520 Output Total 200 300 Balance 820 220 - Quality Measures Condition: Atrial Fibrillation/Flutter (hx or current) CV meds: Eliquis: Yes - Physical Exam General: no apparent distress, speech clear HEENT: mucus membranes moist, normocephaly, EOMI Neck: supple neck, midline trachea Cardiology: irregularly irregular Lungs: clear to auscultation, normal breath sounds, no wheeze, rales, rhonchi Neurology: grossly intact, sensory function intact, no lateralizing findings - Labs Result Diagrams: 06/03/19 03:53 06/03/19 03:53 - EKG Interpretation EKG shows: Atrial fibrillation, Atypical atrial flutter - Device Device: single, pacemaker Device Result: [employer] - Assessment/Plan Assessment/Plan: 1. Wide-complex tachycardia suggestive of ventricular tachycardia, asymptomatic in a setting of a preserved ejection fraction of 55%. Also with recent significant potassium electrolyte shift. 2. Dementia. 3. Atrial arrhythmias. 4. Single-chamber pacemaker, -interrogation shows normal function and excellent rate control. Prior AVJ likely 5. 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 -ZAC ordered today. 6. Hypokalemia. 7. Congestive heart failure diagnosed in April of 2019. Currently medically managed by Cardiology. Continue betablocker therapy for NSVT. Preserved EF. Pending ZAC today to check atriclip/MONICA closure. If adequately closed and no other indication for continued OAC, he should be able to stop eliquis. No further changes in EP plan.
--- NOTE | 2019-06-03 20:09 | PDOC.HOSPP ---
- Subjective Encounter Date: 06/03/19 Encounter Time: 09:40 Subjective: Pt seen for followup re: atrial fibrillation. Denies chest pain, shortness of breath, fevers or chills. - Objective Vital Signs & Weight: Vital Signs (12 hours) Temp Pulse Resp BP BP BP Pulse Ox 06/03/19 16:00 97.7 F 72 16 172/94 H 97 06/03/19 12:11 168/97 H 06/03/19 12:00 78 168/97 H Weight Weight 172 lb 6.4 oz I&O: 06/02/19 06/03/19 06/04/19 06:59 06:59 06:59 Intake Total 1020 520 500 Output Total 200 300 700 Balance 820 220 -200 Result Diagrams: 06/03/19 03:53 06/03/19 03:53 Additional Labs: Labs and MARs reviewed by me EKG Reviewed by me: Yes (Tele: ney muñiz) Hospitalist ROS - Review of Systems Gastrointestinal: denies: nausea, vomiting, abdominal pain, diarrhea, constipation, melena, hematochezia Genitourinary: denies: dysuria, frequency, incontinence, hematuria, retention - Medication Medications: Active Medications Generic Name Dose Route Start Last Admin Trade Name Freq PRN Reason Stop Dose Admin Aspirin 81 mg 06/01/19 09:00 06/03/19 12:12 Aspirin Chewable PO 81 mg DAILY RAPHAEL Administration Baclofen 10 mg 05/31/19 12:00 06/03/19 16:57 Lioresal PO 10 mg TID-WM RAPHAEL Administration Clonidine 0.1 mg 05/31/19 04:03 05/31/19 15:39 Catapres PO 0.1 mg BID PRN Administration SBP > 160 use second Clonidine 0.2 mg 05/31/19 21:00 06/03/19 12:11 Catapres PO 0.2 mg BID RAPHAEL Administration Furosemide 40 mg 06/01/19 07:30 06/03/19 12:12 Lasix PO 40 mg DAILY-AC RAPHAEL Administration Hydralazine HCl 10 mg 05/31/19 04:03 06/03/19 04:51 Apresoline SLOW IVP 10 mg Q6H PRN Administration SBP GREATER THAN 160 Nebivolol 30 mg 06/02/19 09:00 06/03/19 12:11 Bystolic PO 30 mg DAILY RAPHAEL Administration Spironolactone 25 mg 06/01/19 09:00 06/03/19 12:12 Aldactone PO 25 mg QAM RAPHAEL Administration Tamsulosin HCl 0.4 mg 05/31/19 21:00 06/02/19 21:15 Flomax PO 0.4 mg HS RAPHAEL Administration Valsartan 160 mg 05/31/19 21:00 06/03/19 12:12 Diovan PO 160 mg BID RAPHAEL Administration - Exam General Appearance: awake alert Eye: anicteric sclera ENT: moist mucosa Neck: supple Heart: irregular Respiratory: CTAB Gastrointestinal: soft Psychiatric: normal affect, normal behavior Hosp A/P (1) Atrial flutter Code(s): I48.92 - UNSPECIFIED ATRIAL FLUTTER Status: Acute (2) Hypertensive urgency Code(s): I16.0 - HYPERTENSIVE URGENCY Status: Acute (3) Prostate CA Code(s): C61 - MALIGNANT NEOPLASM OF PROSTATE Status: Chronic (4) HTN (hypertension) Code(s): I10 - ESSENTIAL (PRIMARY) HYPERTENSION Status: Chronic (5) Dementia Code(s): F03.90 - UNSPECIFIED DEMENTIA WITHOUT BEHAVIORAL DISTURBANCE Status: Chronic (6) Hypokalemia Code(s): E87.6 - HYPOKALEMIA Status: Resolved - Plan Continue oral furosemide Pt has a h/o atrial fibrillation. Pt had wide complex tachycardia. ZAC today to ensure AtriClip is intact. Continue nebivolol to 30 mg daily. D/W EP service.
[2019-06-03] MEDS: Tamsulosin HCl 0.4 MG CAP PO SCH (21:32)
[2019-06-04] MEDS: Nebivolol HCl 5 MG TAB PO SCH (08:26)
[2019-06-04] MEDS: Spironolactone 25 MG TAB PO SCH (08:28)
[2019-06-04] MEDS: Baclofen 10 MG TAB PO SCH ×3 (08:28→17:00)
[2019-06-04] MEDS: cloNIDine 0.1 MG TAB PO SCH (08:28)
[2019-06-04] MEDS: Aspirin Chewable 81 MG TAB PO SCH (08:28)
[2019-06-04] MEDS: Furosemide 40 MG TAB PO SCH (08:28)
[2019-06-04] MEDS: Valsartan 80 MG TAB PO SCH ×2 (08:28→21:03)
[2019-06-04] MEDS ORDERED: cloNIDine 0.2 MG TAB PO SCH (09:00)
[2019-06-04 09:14] LABS: Anion Gap 13 mmol/L (10-20); BUN (Urea Nitrogen) 31 mg/dL (8.4-25.7); Calc. Creatinine Clearance 53 mL/min (70-130); Calcium 8.8 mg/dL (7.8-10.44); Carbon Dioxide 35 mmol/L (23-31); Chloride 97 mmol/L (98-107); Estimated GFR-MDRD 59; Glucose 251 mg/dL (83-110); Potassium 3.4 mmol/L (3.5-5.1); Sodium 142 mmol/L (136-145)
[2019-06-04] MEDS ORDERED: Potassium Chloride 20 MEQ TAB PO SCH (11:00)
--- NOTE | 2019-06-04 15:35 | PDOC.EP ---
- Subjective Date: 06/04/19 Time: 15:33 - Review of Systems Constitutional: denies: chills, fever, malaise, sweats, weakness, other Respiratory: denies: cough, dry, hemoptysis, pleuritic pain, shortness of breath , SOB with excertion, sputum, wheezing, other - Objective Allergies/Adverse Reactions: Allergies Allergy/AdvReac Type Severity Reaction Status Date / Time amantadine Allergy Verified 05/20/19 18:42 Current Medications Acetaminophen (Tylenol) 650 mg PO Q4H PRN PRN Reason: Headache/Fever/Mild Pain (1-3) Aspirin (Aspirin Chewable) 81 mg PO DAILY [facility] Last Admin: 06/04/19 08:28 Dose: 81 mg Baclofen (Lioresal) 10 mg PO TID-WM [facility] Last Admin: 06/04/19 11:41 Dose: 10 mg Clonidine (Catapres) 0.1 mg PO BID PRN PRN Reason: SBP > 160 use second Last Admin: 05/31/19 15:39 Dose: 0.1 mg Clonidine (Catapres) 0.2 mg PO TID [facility] Furosemide (Lasix) 40 mg PO DAILY-AC [facility] Last Admin: 06/04/19 08:28 Dose: 40 mg Hydralazine HCl (Apresoline) 10 mg SLOW IVP Q6H PRN PRN Reason: SBP GREATER THAN 160 Last Admin: 06/03/19 04:51 Dose: 10 mg Labetalol HCl (Normodyne) 20 mg SLOW IVP Q4H PRN PRN Reason: SBP > 160 use third Nebivolol (Bystolic) 30 mg PO DAILY [facility] Last Admin: 06/04/19 08:26 Dose: 30 mg Spironolactone (Aldactone) 25 mg PO QAM [facility] Last Admin: 06/04/19 08:28 Dose: 25 mg Tamsulosin HCl (Flomax) 0.4 mg PO HS [facility] Last Admin: 06/03/19 21:32 Dose: 0.4 mg Valsartan (Diovan) 160 mg PO BID [facility] Last Admin: 06/04/19 08:28 Dose: 160 mg Vital Signs & Weight: Vital Signs Temp Pulse Pulse Pulse Resp BP BP 06/04/19 13:30 80 06/04/19 12:30 97.9 F 79 18 06/04/19 10:31 85 75 138/108 H 149/80 H 06/04/19 10:00 06/04/19 07:45 97.9 F 75 18 06/04/19 03:48 98.2 F 100 18 BP Pulse Ox 06/04/19 13:30 130/73 06/04/19 12:30 160/78 H 97 06/04/19 10:31 06/04/19 10:00 134/73 06/04/19 07:45 172/96 H 98 06/04/19 03:48 154/78 H 93 L Weight 172 lb 12.8 oz I/O: I/O 06/03/19 06/04/19 06/05/19 06:59 06:59 06:59 Intake Total 520 600 Output Total 300 1150 Balance 220 -550 - Quality Measures Condition: Atrial Fibrillation/Flutter (hx or current) CV meds: Eliquis: Yes - Physical Exam General: alert & oriented x3, appears well, no apparent distress Neck: supple neck, no JVD/HJR Cardiology: regular rate and rhythm Lungs: clear to auscultation, normal breath sounds Abdomen: unremarkable, soft Extremities: warm Skin: device site stable w/o swelling Musculoskeletal: no pain - Labs Result Diagrams: 06/03/19 03:53 06/04/19 08:36 - EKG Interpretation EKG shows: Atrial fibrillation, other (V pacing) - Assessment/Plan Assessment/Plan: 1. Wide-complex tachycardia suggestive of ventricular tachycardia, asymptomatic in a setting of a preserved ejection fraction of 55%. Also with recent significant potassium electrolyte shift. 2. Dementia. 3. Atrial arrhythmias. 4. Single-chamber pacemaker, -interrogation shows normal function and excellent rate control. Prior AVJ likely 5. 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 -ZAC yesterday shows adequately occluded MONICA. No OAC for afib related thromboprophylaxis is necessary.. 6. Hypokalemia. 7. Congestive heart failure diagnosed in April of 2019. Currently medically managed by Cardiology. Continue betablocker therapy for NSVT. Preserved EF. ZAC performed yesterday showedadequate atriclip/MONICA closure - no other indication for continued OAC, he should be able to stop eliquis. No further changes in EP plan. Would sign off.
[2019-06-04] MEDS: cloNIDine 0.2 MG TAB PO SCH ×2 (15:59→21:02)
--- NOTE | 2019-06-04 16:47 | PDOC.HOSPP ---
- Subjective Encounter Date: 06/04/19 Encounter Time: 10:30 Subjective: pt up in bed no complains - Objective Vital Signs & Weight: Vital Signs (12 hours) Temp Pulse Pulse Pulse Resp BP BP 06/04/19 13:30 80 06/04/19 12:30 97.9 F 79 18 06/04/19 10:31 85 75 138/108 H 149/80 H 06/04/19 10:00 06/04/19 07:45 97.9 F 75 18 BP Pulse Ox 06/04/19 13:30 130/73 06/04/19 12:30 160/78 H 97 06/04/19 10:31 06/04/19 10:00 134/73 06/04/19 07:45 172/96 H 98 Weight Weight 172 lb 12.8 oz I&O: 06/03/19 06/04/19 06/05/19 06:59 06:59 06:59 Intake Total 520 600 Output Total 300 1150 Balance 220 -550 Result Diagrams: 06/03/19 03:53 06/04/19 08:36 Hospitalist ROS - Review of Systems Respiratory: denies: cough, dry, shortness of breath, hemoptysis, SOB with excertion, pleuritic pain, sputum, wheezing, other Cardiovascular: denies: chest pain, palpitations, orthopnea, paroxysmal noc. dyspnea, edema, light headedness, other Gastrointestinal: denies: nausea, vomiting, abdominal pain, diarrhea, constipation, melena, hematochezia, other - Medication Medications: Active Medications Generic Name Dose Route Start Last Admin Trade Name Freq PRN Reason Stop Dose Admin Aspirin 81 mg 06/01/19 09:00 06/04/19 08:28 Aspirin Chewable PO 81 mg DAILY [facility]HAEL Administration Baclofen 10 mg 05/31/19 12:00 06/04/19 11:41 Lioresal PO 10 mg TID-WM RAPHAEL Administration Clonidine 0.1 mg 05/31/19 04:03 05/31/19 15:39 Catapres PO 0.1 mg BID PRN Administration SBP > 160 use second Clonidine 0.2 mg 06/04/19 15:00 06/04/19 15:59 Catapres PO 0.2 mg TID RAPHAEL Administration Furosemide 40 mg 06/01/19 07:30 06/04/19 08:28 Lasix PO 40 mg DAILY-AC [facility]EL Administration Hydralazine HCl 10 mg 05/31/19 04:03 06/03/19 04:51 Apresoline SLOW IVP 10 mg Q6H PRN Administration SBP GREATER THAN 160 Nebivolol 30 mg 06/02/19 09:00 06/04/19 08:26 Bystolic PO 30 mg DAILY [facility]EL Administration Spironolactone 25 mg 06/01/19 09:00 06/04/19 08:28 Aldactone PO 25 mg QAM [facility]EL Administration Tamsulosin HCl 0.4 mg 05/31/19 21:00 06/03/19 21:32 Flomax PO 0.4 mg HS RAPHAEL Administration Valsartan 160 mg 05/31/19 21:00 06/04/19 08:28 Diovan PO 160 mg BID RAPHAEL Administration - Exam ENT: negative: normocephalic atraumatic, no oropharyngeal lesions, moist mucosa , dry oral mucosa Neck: negative: supple, symmetric, no JVD, no thyromegaly, no lymphadenopathy, no carotid bruit, JVD Heart: negative: RRR, no murmur, no gallops, no rubs, normal peripheral pulses, irregular, diminshed peripheral pulses, murmur present, II/IV, III/IV Respiratory: negative: CTAB, no wheezes, no rales, no ronchi, normal chest expansion, no tachypnea, normal percussion, rales, rhonchi, tachypneic, wheezes Gastrointestinal: negative: soft, non-tender, non-distended, normal bowel sounds , no palpable masses, no hepatomegaly, no splenomegaly, no bruit, no guarding, no rigidity, tender to palpation, distended, diminished bowl sounds, voluntary guarding Hosp A/P - Plan (1) Atrial flutter Code(s): I48.92 - UNSPECIFIED ATRIAL FLUTTER Status: Acute (2) Hypertensive urgency Code(s): I16.0 - HYPERTENSIVE URGENCY Status: Acute (3) Prostate CA Code(s): C61 - MALIGNANT NEOPLASM OF PROSTATE Status: Chronic (4) HTN (hypertension) Code(s): I10 - ESSENTIAL (PRIMARY) HYPERTENSION Status: Chronic (5) Dementia Code(s): F03.90 - UNSPECIFIED DEMENTIA WITHOUT BEHAVIORAL DISTURBANCE Status: Chronic (6) Hypokalemia Code(s): E87.6 - HYPOKALEMIA Status: Resolved - Plan Continue oral furosemide Pt has a h/o atrial fibrillation. Pt had wide complex tachycardia. ZAC today to ensure AtriClip is intact. Continue nebivolol to 30 mg daily. D/W EP service. 2/ pt's AC has been discontinued no need per ep's note. will discharge pt in am back to snf.
[2019-06-04] MEDS: Tamsulosin HCl 0.4 MG CAP PO SCH (21:03)
[2019-06-05] MEDS: hydrALAZINE 20 MG/ML VIAL SLOW IVP PRN (03:53)
[2019-06-05] MEDS ORDERED: Ipratropium Bromide 2.5 ml Neb NEB SCH (09:30)
[2019-06-05] MEDS: Nebivolol HCl 5 MG TAB PO SCH (09:37)
[2019-06-05] MEDS: Valsartan 80 MG TAB PO SCH (09:37)
[2019-06-05] MEDS: cloNIDine 0.2 MG TAB PO SCH ×2 (09:38→15:11)
[2019-06-05] MEDS: Furosemide 40 MG TAB PO SCH (09:39)
[2019-06-05] MEDS: Spironolactone 25 MG TAB PO SCH (09:39)
[2019-06-05] MEDS: Aspirin Chewable 81 MG TAB PO SCH (09:39)
[2019-06-05] MEDS: Baclofen 10 MG TAB PO SCH ×2 (09:39→11:56)
[2019-06-05 10:59] LABS: Band 7 % (5-11); Hemoglobin 12.7 g/dL (14.0-18.0); Lymphocytes 30 % (21-51); MDiff Complete? YES; Mean Corpuscular HGB CONC 30.6 g/dL (32.0-36.0); Mean Corpuscular Hemoglobin 30.6 pg (27.0-31.0); Mean Platelet Volume 8.5 fL (7.4-10.4); Neutrophil 63 % (42-75); Ovalocytes SLIGHT = 2-5 cells (100X) (0-1/hpf); Platelet Count 90 thou/uL (130-400); Poikilocytosis SLIGHT = 6-15 cells (100X) (0-5/hpf); RBC Distribution Width 14.5 % (11.5-14.5); Red Blood Cell (RBC) Count 4.14 mill/uL (4.70-6.10); Schistocytes SLIGHT = 2-5 cells (100X) (0-1/hpf); White Blood Cell (WBC) Count 17.2 thou/uL (4.8-10.8)
[2019-06-05 11:01] LABS: Anion Gap 14 mmol/L (10-20); BUN (Urea Nitrogen) 26 mg/dL (8.4-25.7); Calc. Creatinine Clearance 61 mL/min (70-130); Calcium 8.8 mg/dL (7.8-10.44); Carbon Dioxide 34 mmol/L (23-31); Chloride 98 mmol/L (98-107); Estimated GFR-MDRD 69; Glucose 240 mg/dL (83-110); Potassium 3.2 mmol/L (3.5-5.1); Sodium 143 mmol/L (136-145)
--- NOTE | 2019-06-05 11:09 | RAD ---
PORTABLE CHEST 1 VIEW: Date: 06/05/2019 Time: 0930 hours HISTORY: Shortness of breath. FINDINGS: Comparison made to exam of 05/30/2019. There are changes of median sternotomy. The heart size is enlarged. Left-sided pacemaker device remai ns in place. The lungs are expanded without lobar consolidation, pneumothoraces, ara pulmonary morena a, or pleural effusions. Old right-sided rib fractures are again seen. A loop recorder device is agai n noted in the left chest. IMPRESSION: No acute process. POS: [facility]
[2019-06-05] MEDS ORDERED: Potassium Chloride 20 MEQ TAB PO SCH (11:15)
[2019-06-05 15:10] VITALS: BP 160/88; TEMP 97.9
--- NOTE | 2019-06-05 20:28 | DIS ---
DATE OF ADMISSION: 05/30/2019 DATE OF DISCHARGE: 06/05/2019 DISCHARGE DIAGNOSES: 1. Atrial flutter. 2. Hypertensive urgency. 3. History of neuroendocrine prostate cancer. 4. Hypertension. 5. Dementia. 6. Hypokalemia. HOSPITAL COURSE: The patient is a very pleasant 84-year-old male, who resides in a care home, who presents to the hospital with complaints for abnormal labs. The patient's potassium was found to be low. His potassium was then replaced and he also complained of some generalized weakness, which could be secondary to the hypokalemia. PT was consulted and also the patient's home medications were continued. The patient was seen by Cardiology Services, who then consulted Electrophysiology. Cardiology was consulted since the patient had nonsustained ventricular tachycardia. At this time, his beta blockers were increased. The patient at this time was seen by Electrophysiology who stated that patient had a wide-complex tachycardia suggestive of ventricular tachycardia, asymptomatic in the setting of preserved EF of 55%. The patient also has a left atrial appendage exclusion with AtriClip requiring evaluation for adequacy of closure. Per EP's note, apparently the patient never really followed up after his left atrial appendage closure and never had a ZAC to make sure that this closure was adequate and he was on anticoagulation. At this time, Electrophysiology spoke with Cardiology, who recommended doing a ZAC to evaluate the left atrial appendage. The EP also recommended that if the closure was adequate, the patient would be able to get off Eliquis. In regard to his nonsustained ventricular tachycardia, recommendation was just to adjust his Bystolic. The patient did have a ZAC, which indicated normal left ventricular function, moderate to severe tricuspid regurgitation, and left atrial appendage appeared to be closed. At this time, the patient will be discharged home. He will follow up with his primary care and also Dr. Cedillo. MEDICATIONS: Will be: 1. Potassium 20 mEq daily. I have asked him to check a potassium level in couple of days. 2. Clonidine 0.2 b.i.d. 3. Spironolactone 25 q.a.m. 4. Flomax 0.4 at bedtime. 5. Valsartan 160 mg b.i.d. 6. Lasix 40 mg daily. 7. Bystolic 30 mg daily. 8. Florastor 250 mg daily. 9. Aspirin 81 mg daily. 10. Initially I put him on Bystolic 20 mg daily; however, I have called to go to the care home to increase it to 30 mg daily. PHYSICAL EXAMINATION: VITAL SIGNS: Temperature 97.9, pulse 70, respirations 18, 94% on room air, blood pressure 160/88. GENERAL: He is awake, alert, and oriented x3. Does not appear in any distress. CV: S1 and S2 present. No murmurs, rubs, or gallops. ABDOMEN: Soft and nontender. Bowel sounds are present x2. Job ID: [id number]
--- NOTE | 2019-06-06 09:24 | PRG ---
DATE OF SERVICE: 06/05/2019 I am seeing Mr. Real at our [facility] as a followup. SUBJECTIVE: No new cardiac symptoms are noted. OBJECTIVE DATA: VITAL SIGNS: Blood pressure 160/88, heart rate 70, respirations 18, and temperature 97.9 degrees Fahrenheit. GENERAL: Alert and oriented man, in no apparent distress. NECK: Supple. Jugular veins not distended. CHEST: Coarse without crackles. HEART: Sounds are regular to rate and rhythm. No murmur or gallop. Left precordial ICD insertion site is well healed. ABDOMEN: Benign. Bowel sounds positive. EXTREMITIES: Lower extremities without edema, clubbing, or cyanosis. DATABASE: Telemetry strips reviewed revealing continued ventricular pacing. No ventricular tachyarrhythmias and underlying atrial fibrillation/atypical flutter. LABORATORY DATA: White blood cell count 7.2, hemoglobin 12.7, platelet count is 90. Sodium 143, potassium 3.2, BUN is 26, and creatinine 1.03. ASSESSMENT AND PLAN: 1. Mr. Real is an 84-year-old gentleman with a remote history of atrial arrhythmias, eventual AV samuel ablation, and ventricular pacer placement, which has seemed to be functioning adequately. He had a short nonsustained ventricular tachycardia episode, which rather has preserved LVEF, also significant potassium shift was noted at that time. Our plan is at this point correct electrolytes. Continue beta-judy therapy for now. No EP workup is planned. 2. History of left atrial appendage closure with AtriClip device during surgery in the past with subsequent ZAC on this admission demonstrated adequately occluded left atrial appendage, likely no EP indication for anticoagulation is present. 3. Hypokalemia, being corrected. 4. Elevated white cell counts, as per primary team. At this point, Mr. Real is stable from EP standpoint. Routine pacemaker monitoring is planned. No indication for anticoagulation despite the ongoing atrial arrhythmias and a history of AtriClip device is in place. We will sign off. Call if any questions. Job ID: [id number]
== END 2019-06-05 16:53 | disposition home or self-care (01) | DRG 309 ==
LOC: ERS 14:45 → 2NO 18:58
PROVIDERS: ADMIT Internal Medicine; ATTEND Internal Medicine
PROC: B24BZZ4 Ultrasonography of Heart with Aorta, Transesophageal (ICD-10-PCS; principal; 2019-06-03)
DX: I48.92 Unspecified atrial flutter (principal); I50.32 Chronic diastolic (congestive) heart failure; E87.6 Hypokalemia; I48.20 Chronic atrial fibrillation, unspecified; I47.2 Ventricular tachycardia; I10 Essential (primary) hypertension; F03.90 Unspecified dementia, unspecified severity, without behavioral disturbance, psychotic disturbance, mood disturbance, and anxiety; D53.9 Nutritional anemia, unspecified; N40.0 Benign prostatic hyperplasia without lower urinary tract symptoms; C61 Malignant neoplasm of prostate; I16.0 Hypertensive urgency; I07.1 Rheumatic tricuspid insufficiency; I25.10 Atherosclerotic heart disease of native coronary artery without angina pectoris; Z95.5 Presence of coronary angioplasty implant and graft; Z92.21 Personal history of antineoplastic chemotherapy; Z88.2 Allergy status to sulfonamides; Z79.82 Long term (current) use of aspirin; Z95.0 Presence of cardiac pacemaker
CPT/HCPCS: 36415; 70450; 71045; 80048; 80053; 81003; 81015; 82553; 83735; 83880; 84484; 85025; 93005; 93312; 94640; 96365; 96366; 96375; J0360; J2001; J2704; J3480; J7050